=== PATIENT | female | born 1980 | race Caucasian/White ===

== ENCOUNTER → 2016-12-24 | Outpatient (CLI) | payer OTHER ==
--- NOTE | 2016-12-24 13:51 | US ---
EXAMINATION TYPE: US pelvis complete transvag DATE OF EXAM: 12/24/2016 10:47 AM COMPARISON: NONE CLINICAL HISTORY: R10.2 PELVIC PAIN. Pelvic pain bilaterally for 6-7 months, normal cycles, 1 c-secti on, A1, tubal ligation TECHNIQUE: TA and TV, endovaginal scanning performed for better evaluation of uterus and ovary Date of LMP: 12/03/2016 EXAM MEASUREMENTS: Uterus: 8.3 x 4.9 x 3.7 cm Endometrial Stripe: 1.4 cm Right Ovary: 2.7 x 2.7 x 2.9 cm Left Ovary: not seen Grayscale, color Doppler performed of the right ovary. Color flow is noted to the right ovary. 1. Uterus: Anteverted shadowing from scar noted, otherwise wnl 2. Endometrium: upper limits of normal versus slightly thickened 3. Right Ovary: wnl 4. Left Ovary: unable to see transabdominally or transvaginally, overlying bowel gas 5. Bilateral Adnexa: wnl 6. Posterior cul-de-sac: wnl There is no ascites. IMPRESSION: Exam is limited. Correlate for appropriate days of patient's follicular cycle or endometr ial stripe thickness.
== END | disposition home or self-care (01) ==
LOC: RADUSWWP 10:13
PROVIDERS: ATTEND Obstetrics & Gynecology
DX: R10.2 Pelvic and perineal pain (principal)
CPT/HCPCS: 76830; 76856

== ENCOUNTER → 2016-12-31 | Outpatient (CLI) | payer OTHER ==
--- NOTE | 2017-01-01 07:45 | XR ---
Lumbosacral spine HISTORY: Low back pain 5 views of the lumbosacral spine submitted and correlated to prior of 09/15/2013 There is no significant interval change. Slight spinal curvature is noted. No spondylolysis or spondy lolisthesis. Lumbar vertebral bodies show stable height, alignment, and bone mineralization. Some mil d loss of disc height L5-S1. IMPRESSION: Stable exam. Suspect mild degenerative disc change.
== END ==
LOC: RADXRMAIN 15:59
PROVIDERS: ATTEND Family Medicine
DX: M54.5 Low back pain (principal)
CPT/HCPCS: 72110

== ENCOUNTER 2017-04-07 11:33 | Emergency (ER) | payer OTHER ==
[2017-04-07 11:39] VITALS: BP 110/80; PULSE 77; RESP 18; TEMP 98
--- NOTE | 2017-04-07 12:30 | ED ---
General Adult HPI - General Chief complaint: Eye Problems Stated complaint: Eye Pain Time Seen by Provider: 04/07/17 11:46 Source: patient, RN notes reviewed Mode of arrival: ambulatory Limitations: no limitations - History of Present Illness Initial comments: Patient 36-year-old female who presents emergency room today with a chief complaint of left eye irritation. She does admit that she's been having this problem for some time is seen deicer kit assembler and was started on some drops. She states that she was told that there was some irritation underneath the left eyelid. She states that at times she's woken up with some redness and irritation to the left eye. She states this happened once again today where there is increased redness and has not gone away. She denies any other complaints or symptoms. Patient denies any recent fever, chills, shortness of breath, chest pain, back pain, abdominal pain, nausea or vomiting, numbness or tingling, dysuria or hematuria, constipation or diarrhea, headaches or visual changes, or any other complaints. - Related Data Previous Rx's Medication Instructions Recorded Tobramycin 0.3% Ophth Soln [Tobrex 1 - 2 drop LEFT EYE QID 7 Days 04/07/17 0.3% Ophth Soln] Allergies Allergy/AdvReac Type Severity Reaction Status Date / Time Penicillins Allergy Rash/Hives Verified 04/07/17 11:40 Review of Systems ROS Statement: Those systems with pertinent positive or pertinent negative responses have been documented in the HPI. ROS Other: All systems not noted in ROS Statement are negative. Past Medical History Past Medical History: No Reported History History of Any Multi-Drug Resistant Organisms: None Reported Past Surgical History: Appendectomy, Section Past Anesthesia/Blood Transfusion Reactions: No Reported Reaction Past Psychological History: No Psychological Hx Reported Smoking Status: Never smoker Past Alcohol Use History: None Reported Past Drug Use History: None Reported General Exam - General Exam Comments Initial Comments: General: The patient is awake and alert, in no distress, and does not appear acutely ill. Eye: Pupils are equal, round and reactive to light, extra-ocular movements are intact. No nystagmus. She does have some left eye redness irritation to the conjunctiva. Watery discharge. Ears, nose, mouth and throat: There are moist mucous membranes and no oral lesions. Neck: The neck is supple, there is no tenderness or JVD. Cardiovascular: There is a regular rate and rhythm. No murmur, rub or gallop is appreciated. Respiratory: Lungs are clear to auscultation, respirations are non-labored, breath sounds are equal. No wheezes, stridor, rales, or rhonchi. Musculoskeletal: Normal ROM, no tenderness. Strength 5/5. Sensation intact. Pulses equal bilaterally 2+. Neurological: A&O x 3. CN II-XII intact, There are no obvious motor or sensory deficits. Coordination appears grossly intact. Speech is normal. Skin: Skin is warm and dry and no rashes or lesions are noted. Psychiatric: Cooperative, appropriate mood & affect, normal judgment. Limitations: no limitations Course Vital Signs 04/07/17 11:38 Temperature 98.0 F Pulse Rate 77 Respiratory 18 Rate Blood Pressure 110/80 O2 Sat by Pulse 97 Oximetry Procedures - Procedures Initial comment: Patient's left eye was anesthetized locally with proparacaine. This did give her relief. Was stained with forcing checked with Wood's lamp and also slit lamp exam revealing a corneal abrasion at the 7 o'clock position. Lids inverted no foreign bodies appreciated. Medical Decision Making - Medical Decision Making She will be started on antibiotic drops. The emergency room and advised to follow-up with her deicer kit assembler tomorrow. Advised return for any other concerns. Disposition Clinical Impression: Corneal abrasion Disposition: HOME SELF-CARE Condition: Good Instructions: Corneal Abrasion (ED) Additional Instructions: Please use medication as discussed. Please follow-up with deicer kit assembler tomorrow. Please return to emergency room if the symptoms increase or worsen or for any other concerns. Prescriptions: Tobramycin 0.3% Ophth Soln [Tobrex 0.3% Ophth Soln] 1 - 2 drop LEFT EYE QID 7 Days Referrals: Guillermina Alvarez MD [Primary Care Provider] - 1-2 days Time of Disposition: 12:29
== END 2017-04-07 12:44 | disposition home or self-care (01) ==
LOC: EC 11:33
DX: S05.02XA Injury of conjunctiva and corneal abrasion without foreign body, left eye, initial encounter (principal); Z88.0 Allergy status to penicillin; X58.XXXA Exposure to other specified factors, initial encounter
CPT/HCPCS: 99283

== ENCOUNTER 2018-05-17 15:38 | Emergency (ER) | payer OTHER ==
[2018-05-17 15:57] VITALS: BP 114/64; PULSE 95; RESP 18; TEMP 98.7
[2018-05-17] MEDS: ACETAMINOPHEN TAB 325 MG TAB PO STA ×2 (16:29→16:30)
[2018-05-17] MEDS: IBUPROFEN 600 MG TAB PO STA ×2 (16:29→16:45)
--- NOTE | 2018-05-17 16:29 | ED ---
ENT HPI - General Chief complaint: ENT Stated complaint: Sore throat Time Seen by Provider: 05/17/18 16:01 Source: patient Mode of arrival: ambulatory Limitations: no limitations - History of Present Illness Initial comments: 38-year-old female patient presents to the emergency department today for evaluation of sore throat. Patient states that she has had sore throat for the last couple of days. States that she also has mild cough with no sputum production. She denies any nasal congestion. She states that she is also having generalized body aches. She denies any fevers or chills. Denies taking anything for discomfort. States that her children are sick with similar symptoms. Patient denies any recent rash, shortness breath, chest pain, abdominal pain, nausea, vomiting, diarrhea, constipation, back pain, numbness, tingling, dizziness, weakness, hematuria, dysuria, urinary urgency, urinary frequency, headache, visual changes, or any other complaints. - Related Data Previous Rx's Medication Instructions Recorded Tobramycin 0.3% Ophth Soln [Tobrex 1 - 2 drop LEFT EYE QID 7 Days ml 04/07/17 0.3% Ophth Soln] Ibuprofen [Motrin] 600 mg PO Q8HR PRN #30 tab 05/17/18 Allergies Allergy/AdvReac Type Severity Reaction Status Date / Time Penicillins Allergy Rash/Hives Verified 05/17/18 15:57 Review of Systems ROS Statement: Those systems with pertinent positive or pertinent negative responses have been documented in the HPI. ROS Other: All systems not noted in ROS Statement are negative. Past Medical History Past Medical History: No Reported History History of Any Multi-Drug Resistant Organisms: None Reported Past Surgical History: Appendectomy, Section Past Anesthesia/Blood Transfusion Reactions: No Reported Reaction Past Psychological History: No Psychological Hx Reported Smoking Status: Never smoker Past Alcohol Use History: None Reported Past Drug Use History: None Reported General Exam Limitations: no limitations General appearance: alert, in no apparent distress, other (This is a well- developed, well-nourished adult female patient in no acute distress. Vital signs upon presentation are temperature 98.7F, pulse 95, respirations 18, blood pressure 114/64, pulse ox 98% on room air.) Eye exam: Present: normal appearance, PERRL, EOMI. Absent: scleral icterus, conjunctival injection, periorbital swelling ENT exam: Present: mucous membranes moist, TM's normal bilaterally. Absent: normal oropharynx (Pharyngeal erythema, tonsillar hypertrophy. No evidence of tonsillar exudate.) Neck exam: Present: normal inspection. Absent: tenderness, meningismus, lymphadenopathy Respiratory exam: Present: normal lung sounds bilaterally. Absent: respiratory distress, wheezes, rales, rhonchi, stridor Cardiovascular Exam: Present: regular rate, normal rhythm, normal heart sounds. Absent: systolic murmur, diastolic murmur, rubs, gallop, clicks GI/Abdominal exam: Present: soft, normal bowel sounds. Absent: distended, tenderness, guarding, rebound, rigid Neurological exam: Present: alert, oriented X3, CN II-XII intact Psychiatric exam: Present: normal affect, normal mood Skin exam: Present: warm, dry, intact, normal color. Absent: rash Course Vital Signs 05/17/18 15:55 Temperature 98.7 F Pulse Rate 95 Respiratory 18 Rate Blood Pressure 114/64 O2 Sat by Pulse 98 Oximetry Medical Decision Making - Medical Decision Making 38-year-old female patient presents the emergency department today for evaluation of sore throat. Physical examination did reveal pharyngeal erythema with tonsillar hypertrophy but no evidence of exudate. No lymphadenopathy. Patient is afebrile, vital signs stable. Checked screen negative. Vision symptoms are consistent with viral pharyngitis. She is instructed regarding saltwater gargles and anti-inflammatory meds. She is instructed to increase fluids and to rest. She is instructed to follow-up with her primary care physician for recheck in 1-2 days. Return parameters discussed in detail. She verbalizes understanding and agrees with this plan. - Lab Data Lab Results 05/17/18 Range/Units 16:31 Group A Strep Rapid Negative (Negative) Disposition Clinical Impression: Viral pharyngitis Disposition: HOME SELF-CARE Condition: Good Instructions: Pharyngitis (ED) Additional Instructions: Saltwater gargles several times daily. Continue taking Tylenol and Motrin for discomfort. The antiinflammatory will help the inflammation in your throat. Follow-up with your primary care physician for recheck in 1-2 days. Await throat culture results. Return here immediately for any new, worsening, or concerning symptoms. Prescriptions: Ibuprofen [Motrin] 600 mg PO Q8HR PRN #30 tab PRN Reason: Pain Is patient prescribed a controlled substance at d/c from ED?: No Referrals: Guillermina Alvarez MD [Primary Care Provider] - 1-2 days Time of Disposition: 16:56
[2018-05-17] MEDS ORDERED: IBUPROFEN ORAL SUSP 100 MG/5 ML CUP PO ONE (16:33)
== END 2018-05-17 17:31 | disposition home or self-care (01) ==
LOC: EC 15:38
DX: J02.9 Acute pharyngitis, unspecified (principal); Z88.0 Allergy status to penicillin
CPT/HCPCS: 87081; 87430; 99283

== ENCOUNTER 2018-07-20 08:58 | Emergency (ER) | payer OTHER ==
[2018-07-20 09:07] VITALS: RESP 15
[2018-07-20] MEDS ORDERED: SODIUM CHLORIDE 0.9% 1,000 ML IV STA (09:18)
[2018-07-20] MEDS ORDERED: HYDROmorphone 1 MG/ML 1 ML SYRINGE IVP STA (09:18)
[2018-07-20] MEDS ORDERED: ONDANSETRON 4 MG/2 ML VIAL IVP STA (09:18)
--- NOTE | 2018-07-20 09:19 | ED ---
General Adult HPI - General Chief complaint: Abdominal Pain Stated complaint: Stomach pain Time Seen by Provider: 07/20/18 09:12 Source: patient, RN notes reviewed Mode of arrival: ambulatory Limitations: no limitations - History of Present Illness Initial comments: Patient is a 38-year-old female presented to the emergency room today with a chief complaint of epigastric pain that started this morning proxy 5 AM. She does admit that she was getting ready for work she was beginning to eat and had one bite of oatmeal. She states pain increased. Currently rates it a 9/10 as a pressure-like pain. Patient states never had symptoms similar to this in the past. Denies any other complaints or symptoms. Patient denies any recent fever , chills, shortness of breath, chest pain, back pain, nausea or vomiting, numbness or tingling, headaches or visual changes, or any other complaints. - Related Data Home Medications Medication Instructions Recorded Confirmed Multivitamin [Multivitamins Adult 1 tab PO DAILY 07/20/18 07/20/18 Gummies] Previous Rx's Medication Instructions Recorded Omeprazole 20 mg PO DAILY #20 capsule. 07/20/18 Ondansetron Odt [Zofran ODT] 4 mg PO Q8HR PRN #20 tab 07/20/18 Allergies Allergy/AdvReac Type Severity Reaction Status Date / Time Penicillins Allergy Rash/Hives Verified 07/20/18 09:49 Review of Systems ROS Statement: Those systems with pertinent positive or pertinent negative responses have been documented in the HPI. ROS Other: All systems not noted in ROS Statement are negative. Past Medical History Past Medical History: No Reported History History of Any Multi-Drug Resistant Organisms: None Reported Past Surgical History: Appendectomy, Section Past Anesthesia/Blood Transfusion Reactions: No Reported Reaction Past Psychological History: No Psychological Hx Reported Smoking Status: Never smoker Past Alcohol Use History: None Reported Past Drug Use History: None Reported General Exam - General Exam Comments Initial Comments: General: The patient is awake and alert, in mild discomfort. Eye: There is normal conjunctiva bilaterally. No signs of icterus. Ears, nose, mouth and throat: There are moist mucous membranes and no oral lesions. Neck: The neck is supple, there is no tenderness or JVD. Cardiovascular: There is a regular rate and rhythm. No murmur, rub or gallop is appreciated. Respiratory: Lungs are clear to auscultation, respirations are non-labored, breath sounds are equal. No wheezes, stridor, rales, or rhonchi. Gastrointestinal: Soft on palpation. Patient does have tenderness epigastric, right upper quadrant. No rebound, guarding or CVA tenderness. Musculoskeletal: Normal ROM, no tenderness. Neurological: A&O x 3. CN II-XII intact, There are no obvious motor or sensory deficits. Coordination appears grossly intact. Speech is normal. Skin: Skin is warm and dry and no rashes or lesions are noted. Psychiatric: Cooperative, appropriate mood & affect, normal judgment. Limitations: no limitations Course Vital Signs 07/20/18 07/20/18 09:03 11:01 Temperature 97.6 F 97.8 F Pulse Rate 83 74 Respiratory 15 15 Rate Blood Pressure 131/79 115/69 O2 Sat by Pulse 100 100 Oximetry Medical Decision Making - Medical Decision Making Patient's ultrasound of the right upper quadrant does show heterogeneous liver. Patient does have a panel that is pending. Patient's admits that she is a drinker. States she was drinking more heavily over the weekend. Patient's liver enzymes are mildly elevated. She did have a white count. Patient does have some mild tenderness right upper quadrant. There is no evidence for cholecystitis. No evidence for cholelithiasis. Common bile ducts within normal limits. Patient's urinalysis reviewed and she denies any symptoms of UTI. Patient's vital stable. Patient's chest x-ray was obtained and does show a mass in the left upper lung which she was aware of. Does show that it has gotten larger. She is advised follow-up with family physician. Patient's EKG is unremarkable. Cardiac enzymes are negative. Patient will be discharged home to follow-up with GI and family physician. Advised to return here to the emergency room symptoms increase or worsen. - Lab Data Result diagrams: 07/20/18 09:15 07/20/18 09:15 Lab Results 07/20/18 07/20/18 07/20/18 Range/Units 09:15 09:15 09:15 WBC 14.4 H (3.8-10.6) k/uL RBC 4.85 (3.80-5.40) m/uL Hgb 12.5 (11.4-16.0) gm/dL Hct 38.2 (34.0-46.0) % MCV 78.8 L (80.0-100.0) fL MCH 25.7 (25.0-35.0) pg MCHC 32.6 (31.0-37.0) g/dL RDW 15.0 (11.5-15.5) % Plt Count 313 (150-450) k/uL Neutrophils % 78 % Lymphocytes % 15 % Monocytes % 4 % Eosinophils % 1 % Basophils % 0 % Neutrophils # 11.1 H (1.3-7.7) k/uL Lymphocytes # 2.2 (1.0-4.8) k/uL Monocytes # 0.6 (0-1.0) k/uL Eosinophils # 0.2 (0-0.7) k/uL Basophils # 0.0 (0-0.2) k/uL Sodium 140 (137-145) mmol/L Potassium 4.3 (3.5-5.1) mmol/L Chloride 107 (98-107) mmol/L Carbon Dioxide 25 (22-30) mmol/L Anion Gap 8 mmol/L BUN 19 H (7-17) mg/dL Creatinine 0.84 (0.52-1.04) mg/dL Est GFR (CKD-EPI)AfAm >90 (>60 ml/min/1.73 sqM) Est GFR (CKD-EPI)NonAf 87 (>60 ml/min/1.73 sqM) Glucose 95 (74-99) mg/dL Calcium 9.3 (8.4-10.2) mg/dL Total Bilirubin 1.3 (0.2-1.3) mg/dL AST 165 H (14-36) U/L ALT 69 H (9-52) U/L Alkaline Phosphatase 111 (38-126) U/L Total Creatine Kinase 150 H (30-135) U/L CK-MB (CK-2) 0.9 (0.0-2.4) ng/mL CK-MB (CK-2) Rel Index 0.6 Troponin I <0.012 (0.000-0.034) ng/mL Total Protein 7.3 (6.3-8.2) g/dL Albumin 4.0 (3.5-5.0) g/dL Amylase 82 (30-110) U/L Lipase 84 (23-300) U/L Urine Color Urine Appearance (Clear) Urine pH (5.0-8.0) Ur Specific [place] (1.001-1.035) Urine Protein (Negative) Urine Glucose (UA) (Negative) Urine Ketones (Negative) Urine Blood (Negative) Urine Nitrite (Negative) Urine Bilirubin (Negative) Urine Urobilinogen (<2.0) mg/dL Ur Leukocyte Esterase (Negative) Urine RBC (0-5) /hpf Urine WBC (0-5) /hpf Ur Squamous Epith Cells (0-4) /hpf Urine Bacteria (None) /hpf Urine Mucus (None) /hpf Urine HCG, Qual (Not Detectd) 07/20/18 07/20/18 Range/Units 09:15 09:15 WBC (3.8-10.6) k/uL RBC (3.80-5.40) m/uL Hgb (11.4-16.0) gm/dL Hct (34.0-46.0) % MCV (80.0-100.0) fL MCH (25.0-35.0) pg MCHC (31.0-37.0) g/dL RDW (11.5-15.5) % Plt Count (150-450) k/uL Neutrophils % % Lymphocytes % % Monocytes % % Eosinophils % % Basophils % % Neutrophils # (1.3-7.7) k/uL Lymphocytes # (1.0-4.8) k/uL Monocytes # (0-1.0) k/uL Eosinophils # (0-0.7) k/uL Basophils # (0-0.2) k/uL Sodium (137-145) mmol/L Potassium (3.5-5.1) mmol/L Chloride (98-107) mmol/L Carbon Dioxide (22-30) mmol/L Anion Gap mmol/L BUN (7-17) mg/dL Creatinine (0.52-1.04) mg/dL Est GFR (CKD-EPI)AfAm (>60 ml/min/1.73 sqM) Est GFR (CKD-EPI)NonAf (>60 ml/min/1.73 sqM) Glucose (74-99) mg/dL Calcium (8.4-10.2) mg/dL Total Bilirubin (0.2-1.3) mg/dL AST (14-36) U/L ALT (9-52) U/L Alkaline Phosphatase (38-126) U/L Total Creatine Kinase (30-135) U/L CK-MB (CK-2) (0.0-2.4) ng/mL CK-MB (CK-2) Rel Index Troponin I (0.000-0.034) ng/mL Total Protein (6.3-8.2) g/dL Albumin (3.5-5.0) g/dL Amylase (30-110) U/L Lipase (23-300) U/L Urine Color Yellow Urine Appearance Cloudy H (Clear) Urine pH 6.5 (5.0-8.0) Ur Specific [place] 1.020 (1.001-1.035) Urine Protein Trace H (Negative) Urine Glucose (UA) Negative (Negative) Urine Ketones Negative (Negative) Urine Blood Moderate H (Negative) Urine Nitrite Negative (Negative) Urine Bilirubin Negative (Negative) Urine Urobilinogen 2.0 (<2.0) mg/dL Ur Leukocyte Esterase Large H (Negative) Urine RBC 24 H (0-5) /hpf Urine WBC 9 H (0-5) /hpf Ur Squamous Epith Cells 7 H (0-4) /hpf Urine Bacteria Rare H (None) /hpf Urine Mucus Rare H (None) /hpf Urine HCG, Qual Not Detected (Not Detectd) Disposition Clinical Impression: Elevated liver enzymes, Lung mass, Abdominal pain Disposition: HOME SELF-CARE Condition: Good Instructions: Abdominal Pain (ED) Additional Instructions: Please follow-up the family physician to have lung mass rechecked. Please follow-up with GI about right sided abdominal pain. Please use medication as prescribed return here to the emergency room symptoms increase or worsen or for any other concerns. Prescriptions: Omeprazole 20 mg PO DAILY #20 capsule. Ondansetron Odt [Zofran ODT] 4 mg PO Q8HR PRN #20 tab PRN Reason: Nausea Is patient prescribed a controlled substance at d/c from ED?: No Referrals: Guillermina Alvarez MD [Primary Care Provider] - 1-2 days Brenda Peterson MD [STAFF PHYSICIAN] - 1-2 days Time of Disposition: 11:55
[2018-07-20 09:32] LABS: Basophils % (A) 0 %; Eosinophils # (A) 0.2 k/uL (0-0.7); Eosinophils % (A) 1 %; HCT 38.2 % (34.0-46.0); HGB 12.5 gm/dL (11.4-16.0); Lymphocytes # (A) 2.2 k/uL (1.0-4.8); Lymphocytes % (A) 15 %; MCH 25.7 pg (25.0-35.0); MCHC 32.6 g/dL (31.0-37.0); MCV 78.8 fL (80.0-100.0); Mean Platelet Volume 8.1; Monocytes # (A) 0.6 k/uL (0-1.0); Monocytes % (A) 4 %; Neutrophils # (A) 11.1 k/uL (1.3-7.7); Neutrophils % (A) 78 %; Platelet Count 313 k/uL (150-450); RBC 4.85 m/uL (3.80-5.40); WBC 14.4 k/uL (3.8-10.6)
[2018-07-20 09:40] LABS: Appearance,Urine Cloudy (Clear); Bacteria,Urine Rare /hpf; Bilirubin,Urine Negative (Negative); Blood,Urine Moderate (Negative); Color,Urine Yellow; Glucose,Urine (UA) Negative (Negative); Ketones,Urine Negative (Negative); Leukocyte Esterase,Urine Large (Negative); Mucus,Urine Rare /hpf; Nitrite,Urine Negative (Negative); PH, Urine 6.5 (5.0-8.0); Protein,Urine Trace (Negative); RBC,Urine 24 /hpf (0-5); Squamous Epithelial Cell,Urine 7 /hpf (0-4)
[2018-07-20 09:46] LABS: ALT 69 U/L (9-52); AST 165 U/L (14-36); Alkaline Phosphatase 111 U/L (38-126); Amylase 82 U/L (30-110); Anion Gap 8 mmol/L; Blood Urea Nitrogen 19 mg/dL (7-17); Calcium 9.3 mg/dL (8.4-10.2); Carbon Dioxide 25 mmol/L (22-30); Chloride 107 mmol/L (98-107); Glucose 95 mg/dL (74-99); Lipase 84 U/L (23-300); Potassium 4.3 mmol/L (3.5-5.1); Sodium 140 mmol/L (137-145); Total Bilirubin 1.3 mg/dL (0.2-1.3); Total Protein 7.3 g/dL (6.3-8.2)
[2018-07-20 10:11] LABS: Creatine Kinase 150 U/L (30-135)
[2018-07-20] MEDS ORDERED: ACETAMINOPHEN IV (For NPO) 1,000 MG in EMPTY BAG 1 BAG IVPB STA (10:14)
[2018-07-20 10:23] LABS: Creatine Kinase MB 0.9 ng/mL (0.0-2.4); Troponin I <0.012 ng/mL (0.000-0.034)
--- NOTE | 2018-07-20 10:25 | US ---
EXAMINATION TYPE: US abdomen limited DATE OF EXAM: 07/20/2018 COMPARISON: NONE CLINICAL HISTORY: Pain. epi pain today, nausea EXAM MEASUREMENTS: Liver Length: 17.7 cm Gallbladder Wall: 0.2 cm CBD: 0.6 cm Right Kidney: 10.1 x 4.6 x 4.7 cm bowel gas limits exam Pancreas: wnl Liver: heterogeneous Gallbladder: wnl Evidence for sonographic Gilbert's sign: no CBD: wnl Right Kidney: wnl IMPRESSION: 1. Liver is heterogeneous in appearance correlate for hepatic steatosis, hepatitis or diffuse hepatoc ellular disease.
--- NOTE | 2018-07-20 10:35 | XR ---
EXAMINATION TYPE: XR chest 2V DATE OF EXAM: 07/20/2018 COMPARISON: 09/15/2013 TECHNIQUE: PA and lateral views submitted. HISTORY: Right upper quadrant pain FINDINGS: The lungs are clear and there is no pneumothorax, pleural effusion, or focal pneumonia. IMPRESSION: 1. There is a 1.5 cm mass in the left upper lobe. This is increased in size from prior exam. CT of th e chest is recommended to assess for malignancy.
[2018-07-20] MEDS ORDERED: KETOROLAC 30 MG/ML 1 ML VIAL IVP STA (10:52)
[2018-07-20 11:03] VITALS: BP 115/69; PULSE 74; TEMP 97.8
[2018-07-20 11:58] LABS: Hepatitis A AB IgM Index 0.06; Hepatitis A Antibody IgM NEGATIVE
[2018-07-20 17:22] LABS: Hepatitis B Core IgM Non-Reactive (Non-Reactive)
== END 2018-07-20 12:01 | disposition home or self-care (01) ==
LOC: EC 08:58
DX: R10.13 Epigastric pain (principal); R91.8 Other nonspecific abnormal finding of lung field; R74.8 Abnormal levels of other serum enzymes; R93.2 Abnormal findings on diagnostic imaging of liver and biliary tract; Z88.0 Allergy status to penicillin; Z90.49 Acquired absence of other specified parts of digestive tract; Z53.8 Procedure and treatment not carried out for other reasons
CPT/HCPCS: 36415; 93005; 80053; 80074; 82150; 82550; 82553; 83690; 84484; 85025; 81001; 81025; 87086; 71046; 76705; 99285; 96374; 96375 ×2; 96361; J2405; J1885; J1170

== ENCOUNTER 2018-07-23 15:25 | Inpatient (IN) | payer OTHER ==
[2018-07-23] MEDS ORDERED: SODIUM CHLORIDE 0.9% 500 ML 500 ML IV STA (16:19)
[2018-07-23 16:58] LABS: Basophils # (A) 0.1 k/uL (0-0.2); Basophils % (A) 0 %; Eosinophils # (A) 0.5 k/uL (0-0.7); Eosinophils % (A) 4 %; HCT 41.9 % (34.0-46.0); HGB 13.2 gm/dL (11.4-16.0); Lymphocytes # (A) 2.3 k/uL (1.0-4.8); Lymphocytes % (A) 20 %; MCH 25.2 pg (25.0-35.0); MCHC 31.5 g/dL (31.0-37.0); MCV 79.8 fL (80.0-100.0); Mean Platelet Volume 8.1; Monocytes # (A) 0.5 k/uL (0-1.0); Monocytes % (A) 5 %; Neutrophils # (A) 7.9 k/uL (1.3-7.7); Neutrophils % (A) 70 %; Platelet Count 336 k/uL (150-450); RBC 5.25 m/uL (3.80-5.40); RDW 15.4 % (11.5-15.5); WBC 11.3 k/uL (3.8-10.6)
[2018-07-23 17:08] LABS: ALT 344 U/L (9-52); AST 150 U/L (14-36); Albumin 4.2 g/dL (3.5-5.0); Alkaline Phosphatase 300 U/L (38-126); Amylase 66 U/L (30-110); Anion Gap 11 mmol/L; Blood Urea Nitrogen 13 mg/dL (7-17); Calcium 9.5 mg/dL (8.4-10.2); Carbon Dioxide 20 mmol/L (22-30); Chloride 110 mmol/L (98-107); Glucose 100 mg/dL (74-99); Lipase 63 U/L (23-300); Potassium 4.1 mmol/L (3.5-5.1); Sodium 141 mmol/L (137-145); Total Bilirubin 3.2 mg/dL (0.2-1.3); Total Protein 7.9 g/dL (6.3-8.2)
--- NOTE | 2018-07-23 17:52 | CT ---
EXAMINATION TYPE: CT abdomen pelvis w con DATE OF EXAM: 07/23/2018 COMPARISON: None HISTORY: Abdominal pain and nausea. CT DLP: 1448.6 mGycm Automated exposure control for dose reduction was used. TECHNIQUE: Helical acquisition of images was performed from the lung bases through the pelvis. CONTRAST: Performed without Oral Contrast and with IV Contrast, patient injected with 100 mL of Isovue 300. FINDINGS: Lung bases are clear of infiltrate. There is no pleural effusion. Heart size is normal. Liver shows no focal defect. Spleen appears normal. There is no pancreatic mass. Gallbladder appears normal. There is no adrenal mass. Kidneys show satisfactory contrast opacification. There is no hydronephrosi s. Ureters are not dilated. There is no retroperitoneal adenopathy. Bladder distends smoothly. There is no free fluid in the pelvis. There are clips from tubal ligation. Uterus is anteverted. There is n o inguinal hernia. I see no intestinal wall thickening. There are no dilated loops. Lumbar spine is i ntact. Bony pelvis is intact. There is no evidence of mesenteric edema or adenopathy. There is no sign of free air. There is small umbilical hernia that contains fat. Appendix is not seen. There is no sign of appendicitis. IMPRESSION: NEGATIVE CT SCAN ABDOMEN AND PELVIS.
--- NOTE | 2018-07-23 17:59 | ED ---
Nausea/Vomiting/Diarrhea HPI - General Chief complaint: Nausea/Vomiting/Diarrhea Stated complaint: NVD Time Seen by Provider: 07/23/18 16:18 Source: patient Mode of arrival: ambulatory Limitations: physical limitation - History of Present Illness Initial comments: This is a 38yo female who denies PMH presnting today for cc of RUQ/epigastric pain, N,V and diarrhea. Pt states that she as seen Friday for abdominal pain, she states she was not experiencing vomiting or diarrhea at that time. Pt states he gallbladder US was negative. She did not elevated liver enzymes however Hepatitis Panel (-). Pt denies noticing a pattern with what bring on and alleviates the pain, she describes the pain as colciky, coming and going with various intensities. Pt denies radiation to the back. Pt denies chest pain , dyspnea, dyspnea on exertion, LE swelling, cough, fever, nightsweats, skin color changes. Pt does state that she has had a headache here and there as well as congestions upon ROS, denies neck stiffness, photophobia, urgency, frequency , dysuria, vaginal discharge, vaginal or pelvic pain, recent travel, sick contacts. Upon arrival pt appears uncomfortable. VS within normal limits. - Related Data Home Medications Medication Instructions Recorded Confirmed Ibuprofen [Motrin Ib] 400 mg PO Q6H PRN 07/23/18 07/23/18 Allergies Allergy/AdvReac Type Severity Reaction Status Date / Time Penicillins Allergy Rash/Hives Verified 07/23/18 16:24 Review of Systems ROS Statement: Those systems with pertinent positive or pertinent negative responses have been documented in the HPI. ROS Other: All systems not noted in ROS Statement are negative. Past Medical History Past Medical History: No Reported History History of Any Multi-Drug Resistant Organisms: None Reported Past Surgical History: Appendectomy, Section Past Anesthesia/Blood Transfusion Reactions: No Reported Reaction Past Psychological History: No Psychological Hx Reported Smoking Status: Never smoker Past Alcohol Use History: None Reported Past Drug Use History: None Reported - Past Family History Mother Family Medical History: Diabetes Mellitus Father Family Medical History: No Reported History General Exam - General Exam Comments Initial Comments: General: The patient is awake and alert, in no distress, and does not appear acutely ill. Eye: +3 mm pupils are equal, round and reactive to light, extra-ocular movements are intact. No nystagmus. There is normal conjunctiva bilaterally. No signs of icterus. Ears, nose, mouth and throat: There are moist mucous membranes and no oral lesions. Neck: The neck is supple, there is no tenderness or JVD. Cardiovascular: There is a regular rate and rhythm. No murmur, rub or gallop is appreciated. Respiratory: Lungs are clear to auscultation, respirations are non-labored, breath sounds are equal. No wheezes, stridor, rales, or rhonchi. Gastrointestinal: No noted diaphoresis, jaundice, pallor, protecting postures or squirming. Symmetrical pigmentation of abdomen without signs of inflammation. Umbilicus mildline, inverted without swelling. No dilated veins. Abdomen contour obese, no noted abdominal distention. No visible masses. No peristalsis, aortic pulsations, or ventral hernia. Bowel sounds audible in all 4 quadrants, unremarkable. Patient exquisitely tender to the right upper quadrant and epigastric region, positive Gilbert's sign. Liver edge, not palpable. Spleen edge , right and left kidney not palpable. Superior bladder margin non-tender. Special Testing: Negative Rovsing, McBurney, Elzbieta, cutaneous hyperesthesia. Iliopsoas and obturator tests negative bilaterally. Negative Heel Jar test/eulalia sign. No CVA tenderness. Digital rectal exam deferred. Negative diallo turners or cullens sign Musculoskeletal: Normal ROM, no tenderness. Strength 5/5. Sensation intact. Pulses equal bilaterally 2+. Neurological: A&O x 3. CN II-XII intact, There are no obvious motor or sensory deficits. Coordination appears grossly intact. Speech is normal. Skin: Skin is warm and dry and no rashes or lesions are noted. Psychiatric: Cooperative, appropriate mood & affect, normal judgment. Limitations: physical limitation Course Vital Signs 07/23/18 07/23/18 07/23/18 15:44 19:30 20:51 Temperature 98.4 F 97.7 F Pulse Rate 72 70 71 Respiratory 18 16 16 Rate Blood Pressure 113/65 125/77 112/67 O2 Sat by Pulse 98 100 98 Oximetry Medical Decision Making - Medical Decision Making PE remarkable for significant RUQ pain, with (+) [place]. Pt refused pain medication. Laboratory findings revealed that her elevated bilirubin since last visit as well as a mild increased in Alk phos remainder of values WNL or decreased since initial visit days prior. Given elevation of the Bilirubin and Alk Phos an addition RUQ ultrasound was obtained revealing no acute process. CT of the abdomen and pelvic revealed no findings correlating with patient symptoms. At this time it is uncelar the etiology. I feel pt should be admitted for further evaluation as well as pain management. I discussed the case at length with Dr. Collins who agreed with impression and plan after reviewing the case. Pt admitted to primary provider Dr. Mathis who spoke with Dr. Collins- accepting admission and will resume further care. Upon admission, GI and general surgery consulted. Pt transferred to the floor in stable condition. She is agreeable with admission and denies questions at this time. - Lab Data Result diagrams: 07/24/18 07:44 07/24/18 07:44 Lab Results 07/23/18 07/23/18 07/23/18 Range/Units 16:43 16:43 16:43 WBC 11.3 H (3.8-10.6) k/uL RBC 5.25 (3.80-5.40) m/uL Hgb 13.2 (11.4-16.0) gm/dL Hct 41.9 (34.0-46.0) % MCV 79.8 L (80.0-100.0) fL MCH 25.2 (25.0-35.0) pg MCHC 31.5 (31.0-37.0) g/dL RDW 15.4 (11.5-15.5) % Plt Count 336 (150-450) k/uL Neutrophils % 70 % Lymphocytes % 20 % Monocytes % 5 % Eosinophils % 4 % Basophils % 0 % Neutrophils # 7.9 H (1.3-7.7) k/uL Lymphocytes # 2.3 (1.0-4.8) k/uL Monocytes # 0.5 (0-1.0) k/uL Eosinophils # 0.5 (0-0.7) k/uL Basophils # 0.1 (0-0.2) k/uL Sodium 141 (137-145) mmol/L Potassium 4.1 (3.5-5.1) mmol/L Chloride 110 H (98-107) mmol/L Carbon Dioxide 20 L (22-30) mmol/L Anion Gap 11 mmol/L BUN 13 (7-17) mg/dL Creatinine 0.85 (0.52-1.04) mg/dL Est GFR (CKD-EPI)AfAm >90 (>60 ml/min/1.73 sqM) Est GFR (CKD-EPI)NonAf 86 (>60 ml/min/1.73 sqM) Glucose 100 H (74-99) mg/dL Calcium 9.5 (8.4-10.2) mg/dL Total Bilirubin 3.2 H (0.2-1.3) mg/dL AST 150 H (14-36) U/L ALT 344 H (9-52) U/L Alkaline Phosphatase 300 H (38-126) U/L Troponin I <0.012 (0.000-0.034) ng/mL Total Protein 7.9 (6.3-8.2) g/dL Albumin 4.2 (3.5-5.0) g/dL Amylase 66 (30-110) U/L Lipase 63 (23-300) U/L Urine Color Urine Appearance (Clear) Urine pH (5.0-8.0) Ur Specific [place] (1.001-1.035) Urine Protein (Negative) Urine Glucose (UA) (Negative) Urine Ketones (Negative) Urine Blood (Negative) Urine Nitrite (Negative) Urine Bilirubin (Negative) Urine Urobilinogen (<2.0) mg/dL Ur Leukocyte Esterase (Negative) Urine RBC (0-5) /hpf Urine WBC (0-5) /hpf Ur Squamous Epith Cells (0-4) /hpf Urine Bacteria (None) /hpf Urine Mucus (None) /hpf 07/23/18 Range/Units 17:48 WBC (3.8-10.6) k/uL RBC (3.80-5.40) m/uL Hgb (11.4-16.0) gm/dL Hct (34.0-46.0) % MCV (80.0-100.0) fL MCH (25.0-35.0) pg MCHC (31.0-37.0) g/dL RDW (11.5-15.5) % Plt Count (150-450) k/uL Neutrophils % % Lymphocytes % % Monocytes % % Eosinophils % % Basophils % % Neutrophils # (1.3-7.7) k/uL Lymphocytes # (1.0-4.8) k/uL Monocytes # (0-1.0) k/uL Eosinophils # (0-0.7) k/uL Basophils # (0-0.2) k/uL Sodium (137-145) mmol/L Potassium (3.5-5.1) mmol/L Chloride (98-107) mmol/L Carbon Dioxide (22-30) mmol/L Anion Gap mmol/L BUN (7-17) mg/dL Creatinine (0.52-1.04) mg/dL Est GFR (CKD-EPI)AfAm (>60 ml/min/1.73 sqM) Est GFR (CKD-EPI)NonAf (>60 ml/min/1.73 sqM) Glucose (74-99) mg/dL Calcium (8.4-10.2) mg/dL Total Bilirubin (0.2-1.3) mg/dL AST (14-36) U/L ALT (9-52) U/L Alkaline Phosphatase (38-126) U/L Troponin I (0.000-0.034) ng/mL Total Protein (6.3-8.2) g/dL Albumin (3.5-5.0) g/dL Amylase (30-110) U/L Lipase (23-300) U/L Urine Color Yellow Urine Appearance Cloudy H (Clear) Urine pH 5.5 (5.0-8.0) Ur Specific [place] 1.032 (1.001-1.035) Urine Protein Trace H (Negative) Urine Glucose (UA) Negative (Negative) Urine Ketones 1+ H (Negative) Urine Blood Moderate H (Negative) Urine Nitrite Negative (Negative) Urine Bilirubin 1+ H (Negative) Urine Urobilinogen <2.0 (<2.0) mg/dL Ur Leukocyte Esterase Large H (Negative) Urine RBC 42 H (0-5) /hpf Urine WBC 48 H (0-5) /hpf Ur Squamous Epith Cells 18 H (0-4) /hpf Urine Bacteria Occasional H (None) /hpf Urine Mucus Rare H (None) /hpf Disposition Clinical Impression: Right upper quadrant pain, Hyperbilirubinemia, Elevated liver enzymes, Nausea and vomiting Disposition: ADMITTED IP TO THIS [facility] Condition: Stable Is patient prescribed a controlled substance at d/c from ED?: No Time of Disposition: 19:19 Decision to Admit Reason: Admit from EC Decision Date: 07/23/18 Decision Time: 19:19
[2018-07-23 18:08] LABS: Appearance,Urine Cloudy (Clear); Bacteria,Urine Occasional /hpf; Bilirubin,Urine 1+ (Negative); Blood,Urine Moderate (Negative); Color,Urine Yellow; Glucose,Urine (UA) Negative (Negative); Ketones,Urine 1+ (Negative); Leukocyte Esterase,Urine Large (Negative); Mucus,Urine Rare /hpf; Nitrite,Urine Negative (Negative); PH, Urine 5.5 (5.0-8.0); Protein,Urine Trace (Negative); RBC,Urine 42 /hpf (0-5); Specific Gravity,Urine 1.032 (1.001-1.035); Squamous Epithelial Cell,Urine 18 /hpf (0-4); Urobilinogen,Urine <2.0 mg/dL (<2.0); WBC,Urine 48 /hpf (0-5)
--- NOTE | 2018-07-23 19:09 | US ---
EXAMINATION TYPE: US abdomen limited DATE OF EXAM: 07/23/2018 COMPARISON: 07/20/2018 CLINICAL HISTORY: Pain. Pain and vomiting EXAM MEASUREMENTS: Liver Length: 16.8 cm Gallbladder Wall: 0.2 cm CBD: 0.5 cm Right Kidney: 9.3 x 4.4 x 4.6 cm Pancreas: Obscured by bowel gas Liver: wnl Gallbladder: wnl Evidence for sonographic Gilbert's sign: No CBD: wnl Right Kidney: wnl IMPRESSION: Normal right upper quadrant abdominal sonogram. No gallstones or dilated ducts. No advers e change compared to recent exam.
[2018-07-23] MEDS ORDERED: MORPHINE SULFATE 4 MG/ML SYRINGE IV PRN (19:11)
[2018-07-23] MEDS ORDERED: ACETAMINOPHEN TAB 325 MG TAB PO PRN (19:11)
[2018-07-23] MEDS ORDERED: ALPRAZolam 0.25 MG TAB PO PRN (19:11)
[2018-07-23] MEDS ORDERED: ONDANSETRON 4 MG/2 ML VIAL IVP PRN (19:11)
[2018-07-23] MEDS ORDERED: NALOXONE 0.4 MG/ML 1 ML VIAL IV PRN (19:11)
[2018-07-23] MEDS: SODIUM CHLORIDE 0.9% 1,000 ML IV SCH (19:39)
[2018-07-23] MEDS: IBUPROFEN 400 MG TAB PO PRN (23:06)
[2018-07-23] MEDS: PANTOPRAZOLE 40 MG/10 ML VIAL IVP SCH (23:51)
[2018-07-24] MEDS: PANTOPRAZOLE 40 MG/10 ML VIAL IVP SCH (07:31)
[2018-07-24 08:19] LABS: Basophils % (A) 0 %; Eosinophils # (A) 0.4 k/uL (0-0.7); Eosinophils % (A) 4 %; HCT 38.1 % (34.0-46.0); HGB 11.7 gm/dL (11.4-16.0); Hypochromasia Slight; Lymphocytes # (A) 1.9 k/uL (1.0-4.8); Lymphocytes % (A) 21 %; MCHC 30.7 g/dL (31.0-37.0); MCV 81.2 fL (80.0-100.0); Monocytes # (A) 0.4 k/uL (0-1.0); Monocytes % (A) 5 %; Neutrophils # (A) 6.1 k/uL (1.3-7.7); Neutrophils % (A) 69 %; Platelet Count 284 k/uL (150-450); RBC 4.68 m/uL (3.80-5.40); RDW 15.6 % (11.5-15.5); WBC 8.9 k/uL (3.8-10.6)
[2018-07-24 08:29] LABS: ALT 247 U/L (9-52); AST 87 U/L (14-36); Albumin 3.4 g/dL (3.5-5.0); Alkaline Phosphatase 261 U/L (38-126); Amylase 55 U/L (30-110); Anion Gap 10 mmol/L; Blood Urea Nitrogen 14 mg/dL (7-17); Calcium 9.1 mg/dL (8.4-10.2); Carbon Dioxide 20 mmol/L (22-30); Chloride 111 mmol/L (98-107); Glucose 74 mg/dL (74-99); Lipase 62 U/L (23-300); Potassium 4.6 mmol/L (3.5-5.1); Sodium 141 mmol/L (137-145); Total Bilirubin 3.7 mg/dL (0.2-1.3); Total Protein 6.6 g/dL (6.3-8.2)
--- NOTE | 2018-07-24 11:16 | P.CONS ---
History of Present Illness - Reason for Consult Consult date: 07/24/18 Hepatitis right upper quadrant abdominal pain Requesting physician: Elier Tuttle - Chief Complaint Right upper quadrant abdominal pain - History of Present Illness 38-year-old female patient Dr. Alvarez with no significant past medical history presents with acute right upper quadrant abdominal pain that started Friday with "fluorescent orange" colored urine and elevated liver enzymes. She was evaluated in the emergency room 4 days ago with epigastric pain ultrasound reported no evidence of stones, CBD within normal limits. liver function tests at that time TB 1.3. AST 165. ALT 69. AP 111. No history of hepatitis or liver disorders. No changes in medications. She had a few drinks of alcohol over the weekend nothing excessive. Denies history of EtOH abuse. No history of autoimmune disorders. Admission white count 11.3 presently 8.9. Hemoglobin 11.7-13.2. MCV 79-81. Platelet 284-336. Total bilirubin 3.2-3.7. AST 87- 150. ALT 247-344. AP 261-300. Lipase 62. Amylase 55. Hepatitis panel nonreactive. CT abdomen and pelvis liver shows no defect. Spleen normal. No pancreatic mass. Gallbladder normal. Review of Systems Constitutional: Denies fever, chills, sweats, weight gain, or loss. HEENT: Negative for migraines, blurred vision or loss, earaches, drainage, tinnitus, oral mucosal lesions, dysphagia, or odynophagia. CARDIAC: Negative for chest pain, arrhythmias, or palpitation. RESPIRATORY: Negative for shortness of breath, hemoptysis, cough, or sputum production. GI: See HPI for pertinent findings. : Negative for hematuria, urgency, frequency, polyuria, or dysuria. GYNc: Denies possibility of . Negative vaginal discharge. MUSCULOSKELETAL: Negative for muscle aches, swelling, arthritis, and arthralgias. NEUROLOGIC: Negative for stroke or TIA. ENDOCRINE: Negative for thyroid problems. SKIN: Negative for rash or itching. PSYCHIATRIC: Negative history for depression and anxiety Past Medical History Past Medical History: No Reported History History of Any Multi-Drug Resistant Organisms: None Reported Past Surgical History: Appendectomy, Section Past Anesthesia/Blood Transfusion Reactions: No Reported Reaction Additional Past Anesthesia/Blood Transfusion Reaction / Comm: CLAUSTERPHOBIA Past Psychological History: No Psychological Hx Reported Smoking Status: Never smoker Past Alcohol Use History: None Reported Past Drug Use History: None Reported - Past Family History Mother Family Medical History: Diabetes Mellitus Father Family Medical History: No Reported History Medications and Allergies Home Medications Medication Instructions Recorded Confirmed Type Ibuprofen [Motrin Ib] 400 mg PO Q6H PRN 07/23/18 07/23/18 History Allergies Allergy/AdvReac Type Severity Reaction Status Date / Time Penicillins Allergy Rash/Hives Verified 07/23/18 16:24 Physical Exam Vitals: Vital Signs Temp Pulse Pulse Resp BP BP Pulse Ox 07/24/18 06:41 98.1 F 83 18 106/64 99 07/23/18 23:00 97.1 F L 66 18 137/91 96 07/23/18 20:51 71 16 112/67 98 07/23/18 19:30 97.7 F 70 16 125/77 100 07/23/18 15:44 98.4 F 72 18 113/65 98 Intake and Output 07/23/18 07/24/18 07/24/18 22:59 06:59 14:59 Intake Total 0 0 Balance 0 0 Intake: Oral 0 0 Other: # Voids 1 1 Weight 98.883 kg 98.883 kg General appearance: The patient is alert, oriented, in no acute distress. Mildly jaundice. HET: Head is normocephalic and atraumatic. Pupils are equal and reactive. Sclerae icterus. Oropharynx is clear without lesions. Neck: Supple without lymphadenopathy. Trachea midline. Heart: S1 S2. Regular rate and rhythm. Lungs: No crackles or wheezes are heard. Abdomen: Soft, tenderness right upper quadrant, nondistended with bowel sounds. No peritoneal signs. No palpable organomegaly or masses. Extremities: Normal skin color and turgor. No cyanosis, rash, ulceration, clubbing, or edema. Radial and pedal pulses are 2/4 bilaterally. Neurological: No focal deficits. Strength and sensation are grossly intact. Results CBC & Chem 7: 07/24/18 07:44 07/24/18 07:44 Labs: Abnormal Lab Results - Last 24 Hours (Table) 07/23/18 07/23/18 07/23/18 Range/Units 16:43 16:43 17:48 WBC 11.3 H (3.8-10.6) k/uL MCV 79.8 L (80.0-100.0) fL MCHC (31.0-37.0) g/dL RDW (11.5-15.5) % Neutrophils # 7.9 H (1.3-7.7) k/uL Chloride 110 H (98-107) mmol/L Carbon Dioxide 20 L (22-30) mmol/L Glucose 100 H (74-99) mg/dL Total Bilirubin 3.2 H (0.2-1.3) mg/dL AST 150 H (14-36) U/L ALT 344 H (9-52) U/L Alkaline Phosphatase 300 H (38-126) U/L Albumin (3.5-5.0) g/dL Urine Appearance Cloudy H (Clear) Urine Protein Trace H (Negative) Urine Ketones 1+ H (Negative) Urine Blood Moderate H (Negative) Urine Bilirubin 1+ H (Negative) Ur Leukocyte Esterase Large H (Negative) Urine RBC 42 H (0-5) /hpf Urine WBC 48 H (0-5) /hpf Ur Squamous Epith Cells 18 H (0-4) /hpf Urine Bacteria Occasional H (None) /hpf Urine Mucus Rare H (None) /hpf 07/24/18 07/24/18 Range/Units 07:44 07:44 WBC (3.8-10.6) k/uL MCV (80.0-100.0) fL MCHC 30.7 L (31.0-37.0) g/dL RDW 15.6 H (11.5-15.5) % Neutrophils # (1.3-7.7) k/uL Chloride 111 H (98-107) mmol/L Carbon Dioxide 20 L (22-30) mmol/L Glucose (74-99) mg/dL Total Bilirubin 3.7 H (0.2-1.3) mg/dL AST 87 H (14-36) U/L ALT 247 H (9-52) U/L Alkaline Phosphatase 261 H (38-126) U/L Albumin 3.4 L (3.5-5.0) g/dL Urine Appearance (Clear) Urine Protein (Negative) Urine Ketones (Negative) Urine Blood (Negative) Urine Bilirubin (Negative) Ur Leukocyte Esterase (Negative) Urine RBC (0-5) /hpf Urine WBC (0-5) /hpf Ur Squamous Epith Cells (0-4) /hpf Urine Bacteria (None) /hpf Urine Mucus (None) /hpf CT scan - abdomen: report reviewed (Dr. Damico) US - abdomen: report reviewed (Dr. Damico) Assessment and Plan (1) Hepatitis Narrative/Plan: -year-old female admitted with acute right upper quadrant abdominal pain 4 days with elevated liver enzymes hyperbilirubinemia consistent with acute hepatitis. Etiology unclear. Denies history of EtOH abuse. Radiographic imaging reported no obvious gallbladder or liver biliary duct abnormalities no evidence of cholelithiasis. Underlying viral possible autoimmune hepatitis cannot be excluded. Current Visit: Yes Status: Acute Code(s): K75.9 - INFLAMMATORY LIVER DISEASE , UNSPECIFIED SNOMED Code(s): 991156676 (2) Elevated liver enzymes Current Visit: Yes Status: Acute Code(s): R74.8 - ABNORMAL LEVELS OF OTHER SERUM ENZYMES SNOMED Code(s): 123932590 (3) Right upper quadrant pain Current Visit: Yes Status: Acute Code(s): R10.11 - RIGHT UPPER QUADRANT PAIN SNOMED Code(s): 495142827 Plan: 1. MRCP. 2. Serologic workup for chronic liver disease. Viral studies requested. Bilirubin fractions requested. Daily monitoring of CBC CMP. Will follow closely with you. Thank you for this kind referral and the opportunity to participate in the care of your patient. This consultation was discussed with Dr. Damico. The impression and plan of care have been directed as dictated.
[2018-07-24] MEDS ORDERED: LORazepam 2 MG/ML INJ IV STA (12:19)
--- NOTE | 2018-07-24 12:41 | P.HPIM ---
History of Present Illness H&P Date: 07/24/18 Chief Complaint: Abdominal pain This is a 38-year-old female, patient of Dr. Alvarez. She has no sniffing a past medical history. Patient has been in the ER twice now for this right upper quadrant abdominal pain starting on July 20. At that time she was discharged home and told to follow-up with her PCP. Patient reports that her abdominal pain had started 5 days ago. And on Friday she had severe nausea vomiting and diarrhea. Yesterday she had no further vomiting and diarrhea but continued to have the right upper quadrant abdominal pain. The pain did not radiate. She did not have any worsening factors. Hepatitis panel from July 20 was negative. Abdominal ultrasound normal. Computed tomography scan of the abdomen and pelvis was negative. Patient did have elevated white count of 11.3 on admission total bilirubin of 3.2 AST 158 ALT 340 Alk phos 300. Amylase and lipase are normal. GI and surgical service have been placed on consult. GI service has ordered serological workup and an MRCP. Patient denies daily alcohol use. She reports her last alcoholic beverage was on Friday and she did not drink excessively. Patient denies any fever chills or sweats. Denies any burning with urination. Patient denies taking any tylenol or choleterol meds Review of Systems Please refer to HPI otherwise unremarkable Past Medical History Past Medical History: No Reported History History of Any Multi-Drug Resistant Organisms: None Reported Past Surgical History: Appendectomy, Section Past Anesthesia/Blood Transfusion Reactions: No Reported Reaction Additional Past Anesthesia/Blood Transfusion Reaction / Comment(s): CLAUSTERPHOBIA Past Psychological History: No Psychological Hx Reported Smoking Status: Never smoker Past Alcohol Use History: None Reported Past Drug Use History: None Reported - Past Family History Mother Family Medical History: Diabetes Mellitus Father Family Medical History: No Reported History Medications and Allergies Home Medications Medication Instructions Recorded Confirmed Type Ibuprofen [Motrin Ib] 400 mg PO Q6H PRN 07/23/18 07/23/18 History Allergies Allergy/AdvReac Type Severity Reaction Status Date / Time Penicillins Allergy Rash/Hives Verified 07/23/18 16:24 Physical Exam Vitals: Vital Signs Temp Pulse Pulse Resp BP BP Pulse Ox 07/24/18 08:00 18 07/24/18 06:41 98.1 F 83 18 106/64 99 07/23/18 23:00 97.1 F L 66 18 137/91 96 07/23/18 20:51 71 16 112/67 98 07/23/18 19:30 97.7 F 70 16 125/77 100 07/23/18 15:44 98.4 F 72 18 113/65 98 Intake and Output 07/23/18 07/24/18 07/24/18 22:59 06:59 14:59 Intake Total 0 0 Balance 0 0 Intake: Oral 0 0 Other: Voiding Method Toilet # Voids 1 1 Weight 98.883 kg 98.883 kg Head normocephalic Neck supple Lungs clear to auscultation bilaterally no wheezing or crackles Heart regular rate and rhythm S1-S2, no rub or gallop Abdomen is soft right upper quadrant tenderness positive bowel sounds Extremities no edema Neuro alert and orientated to 3 Results CBC & Chem 7: 07/24/18 07:44 07/24/18 07:44 Labs: Abnormal Lab Results - Last 24 Hours (Table) 07/23/18 07/23/18 07/23/18 Range/Units 16:43 16:43 17:48 WBC 11.3 H (3.8-10.6) k/uL MCV 79.8 L (80.0-100.0) fL MCHC (31.0-37.0) g/dL RDW (11.5-15.5) % Neutrophils # 7.9 H (1.3-7.7) k/uL Chloride 110 H (98-107) mmol/L Carbon Dioxide 20 L (22-30) mmol/L Glucose 100 H (74-99) mg/dL Total Bilirubin 3.2 H (0.2-1.3) mg/dL AST 150 H (14-36) U/L ALT 344 H (9-52) U/L Alkaline Phosphatase 300 H (38-126) U/L Albumin (3.5-5.0) g/dL Urine Appearance Cloudy H (Clear) Urine Protein Trace H (Negative) Urine Ketones 1+ H (Negative) Urine Blood Moderate H (Negative) Urine Bilirubin 1+ H (Negative) Ur Leukocyte Esterase Large H (Negative) Urine RBC 42 H (0-5) /hpf Urine WBC 48 H (0-5) /hpf Ur Squamous Epith Cells 18 H (0-4) /hpf Urine Bacteria Occasional H (None) /hpf Urine Mucus Rare H (None) /hpf 07/24/18 07/24/18 Range/Units 07:44 07:44 WBC (3.8-10.6) k/uL MCV (80.0-100.0) fL MCHC 30.7 L (31.0-37.0) g/dL RDW 15.6 H (11.5-15.5) % Neutrophils # (1.3-7.7) k/uL Chloride 111 H (98-107) mmol/L Carbon Dioxide 20 L (22-30) mmol/L Glucose (74-99) mg/dL Total Bilirubin 3.7 H (0.2-1.3) mg/dL AST 87 H (14-36) U/L ALT 247 H (9-52) U/L Alkaline Phosphatase 261 H (38-126) U/L Albumin 3.4 L (3.5-5.0) g/dL Urine Appearance (Clear) Urine Protein (Negative) Urine Ketones (Negative) Urine Blood (Negative) Urine Bilirubin (Negative) Ur Leukocyte Esterase (Negative) Urine RBC (0-5) /hpf Urine WBC (0-5) /hpf Ur Squamous Epith Cells (0-4) /hpf Urine Bacteria (None) /hpf Urine Mucus (None) /hpf Thrombosis Risk Factor Assmnt - Choose All That Apply Any of the Below Risk Factors Present?: Yes Each Factor Represents 1 point: Obesity (BMI >25) Thrombosis Risk Factor Assessment Total Risk Factor Score: 1 Thrombosis Risk Factor Assessment Level: Low Risk Assessment and Plan Assessment: 1. Acute hepatitis with right upper quadrant abdominal pain. Patient has elevated liver enzymes and elevated bilirubin. GI service has evaluated patient concerns for possible autoimmune hepatitis. They've ordered a serological workup and MRCP. Patient will also be evaluated by surgical service. Abdominal ultrasound and computed tomography scan abdomen and pelvis are normal. Hepatitis panel negative from 07/20/2018. Patient denies daily alcohol use 2. Urinalysis with large leukocytes esterase however has 18 squamous epithelial cells. Likely urine specimen is a contaminant. Patient has no urinary symptoms. Repeat urinalysis and sent for culture. Patient did receive 1 dose of Rocephin in ER 3. Leukocytosis: White count has normalized. Possibly related to liver etiology. However, repeating urinalysis. GI prophylaxis Protonix and DVT prophylaxis Lovenox Time with Patient: Greater than 30 (Greater than 50% of the total time spent in counseling and coordination of care.I performed an examination of the patient and discussed their management with the physician Database Report Writer. I have reviewed the Physician Database Report Writer's notes and agree with the documented findings and plan of care)
[2018-07-24 14:07] LABS: Appearance,Urine Cloudy (Clear); Bacteria,Urine Rare /hpf; Bilirubin,Urine Negative (Negative); Blood,Urine Small (Negative); Color,Urine Yellow; Glucose,Urine (UA) Negative (Negative); Ketones,Urine 3+ (Negative); Leukocyte Esterase,Urine Large (Negative); Mucus,Urine Rare /hpf; Nitrite,Urine Negative (Negative); Protein,Urine Negative (Negative); RBC,Urine 13 /hpf (0-5); Specific Gravity,Urine 1.015 (1.001-1.035); Squamous Epithelial Cell,Urine 8 /hpf (0-4); Urobilinogen,Urine <2.0 mg/dL (<2.0); WBC,Urine 5 /hpf (0-5)
[2018-07-24] MEDS: SODIUM CHLORIDE 0.9% 1,000 ML IV SCH (15:15)
--- NOTE | 2018-07-24 16:19 | P.GSCN ---
History of Present Illness Consult date: 07/24/18 Reason for Consult: Elevated liver enzymes with abdominal pain History of present illness: Patient presents to the ER last night with complaints of abdominal pain. She was actually seen in the ER on Friday with rather acute onset epigastric pain that radiated to the right upper quadrant. No radiation to the back or shoulder. This was associated with nausea vomiting and diarrhea as well. Pain persisted so she came back to the ER on . She does describe dark urine. No history of known gallstones. No heavy alcohol use. Patient was found to have no gallstones on ultrasound. Common bile duct looked normal. Patient's liver enzymes elevated. Hepatitis panel bus far negative. CAT scan shows no definite gallbladder abnormalities as well. Review of Systems The patient denies any acute changes in vision or hearing, no dysphagia or odynophagia, no chest pain or shortness of breath, no dysuria or hematuria, no headache, no runny nose, no rectal bleeding or melena, no unexplained weight loss Past Medical History Past Medical History: No Reported History History of Any Multi-Drug Resistant Organisms: None Reported Past Surgical History: Appendectomy, Section Past Anesthesia/Blood Transfusion Reactions: No Reported Reaction Additional Past Anesthesia/Blood Transfusion Reaction / Comm: CLAUSTERPHOBIA Past Psychological History: No Psychological Hx Reported Smoking Status: Never smoker Past Alcohol Use History: None Reported Past Drug Use History: None Reported - Past Family History Mother Family Medical History: Diabetes Mellitus Father Family Medical History: No Reported History Medications and Allergies Home Medications Medication Instructions Recorded Confirmed Type Ibuprofen [Motrin Ib] 400 mg PO Q6H PRN 07/23/18 07/23/18 History Allergies Allergy/AdvReac Type Severity Reaction Status Date / Time Penicillins Allergy Rash/Hives Verified 07/23/18 16:24 Surgical - Exam Vital Signs Temp Pulse Resp BP Pulse Ox 98.4 F 72 18 113/65 98 07/23/18 15:44 07/23/18 15:44 07/23/18 15:44 07/23/18 15:44 07/23/18 15:44 Physical exam: General: Well-developed, well-nourished HEENT: Normocephalic, sclerae nonicteric Abdomen: Mild epigastric and right upper quadrant tenderness, nondistended Extremities: No edema Neuro: Alert and oriented Results - Labs 07/24/18 07:44 12/21/18 07:44 Abnormal Lab Results - Last 24 Hours (Table) 07/23/18 07/23/18 07/23/18 Range/Units 16:43 16:43 17:48 WBC 11.3 H (3.8-10.6) k/uL MCV 79.8 L (80.0-100.0) fL MCHC (31.0-37.0) g/dL RDW (11.5-15.5) % Neutrophils # 7.9 H (1.3-7.7) k/uL Chloride 110 H (98-107) mmol/L Carbon Dioxide 20 L (22-30) mmol/L Glucose 100 H (74-99) mg/dL Total Bilirubin 3.2 H (0.2-1.3) mg/dL AST 150 H (14-36) U/L ALT 344 H (9-52) U/L Alkaline Phosphatase 300 H (38-126) U/L Albumin (3.5-5.0) g/dL Urine Appearance Cloudy H (Clear) Urine Protein Trace H (Negative) Urine Ketones 1+ H (Negative) Urine Blood Moderate H (Negative) Urine Bilirubin 1+ H (Negative) Ur Leukocyte Esterase Large H (Negative) Urine RBC 42 H (0-5) /hpf Urine WBC 48 H (0-5) /hpf Ur Squamous Epith Cells 18 H (0-4) /hpf Urine Bacteria Occasional H (None) /hpf Urine Mucus Rare H (None) /hpf 07/24/18 07/24/18 07/24/18 Range/Units 07:44 07:44 12:20 WBC (3.8-10.6) k/uL MCV (80.0-100.0) fL MCHC 30.7 L (31.0-37.0) g/dL RDW 15.6 H (11.5-15.5) % Neutrophils # (1.3-7.7) k/uL Chloride 111 H (98-107) mmol/L Carbon Dioxide 20 L (22-30) mmol/L Glucose (74-99) mg/dL Total Bilirubin 3.7 H (0.2-1.3) mg/dL AST 87 H (14-36) U/L ALT 247 H (9-52) U/L Alkaline Phosphatase 261 H (38-126) U/L Albumin 3.4 L (3.5-5.0) g/dL Urine Appearance Cloudy H (Clear) Urine Protein (Negative) Urine Ketones 3+ H (Negative) Urine Blood Small H (Negative) Urine Bilirubin (Negative) Ur Leukocyte Esterase Large H (Negative) Urine RBC 13 H (0-5) /hpf Urine WBC (0-5) /hpf Ur Squamous Epith Cells 8 H (0-4) /hpf Urine Bacteria Rare H (None) /hpf Urine Mucus Rare H (None) /hpf Diabetes panel 07/23/18 07/24/18 Range/Units 16:43 07:44 Sodium 141 141 (137-145) mmol/L Potassium 4.1 4.6 (3.5-5.1) mmol/L Chloride 110 H 111 H (98-107) mmol/L Carbon Dioxide 20 L 20 L (22-30) mmol/L BUN 13 14 (7-17) mg/dL Creatinine 0.85 0.85 (0.52-1.04) mg/dL Glucose 100 H 74 (74-99) mg/dL Calcium 9.5 9.1 (8.4-10.2) mg/dL AST 150 H 87 H (14-36) U/L ALT 344 H 247 H (9-52) U/L Alkaline Phosphatase 300 H 261 H (38-126) U/L Total Protein 7.9 6.6 (6.3-8.2) g/dL Albumin 4.2 3.4 L (3.5-5.0) g/dL Calcium panel 07/23/18 07/24/18 Range/Units 16:43 07:44 Calcium 9.5 9.1 (8.4-10.2) mg/dL Albumin 4.2 3.4 L (3.5-5.0) g/dL Pituitary panel 07/23/18 07/24/18 Range/Units 16:43 07:44 Sodium 141 141 (137-145) mmol/L Potassium 4.1 4.6 (3.5-5.1) mmol/L Chloride 110 H 111 H (98-107) mmol/L Carbon Dioxide 20 L 20 L (22-30) mmol/L BUN 13 14 (7-17) mg/dL Creatinine 0.85 0.85 (0.52-1.04) mg/dL Glucose 100 H 74 (74-99) mg/dL Calcium 9.5 9.1 (8.4-10.2) mg/dL Adrenal panel 07/23/18 07/24/18 Range/Units 16:43 07:44 Sodium 141 141 (137-145) mmol/L Potassium 4.1 4.6 (3.5-5.1) mmol/L Chloride 110 H 111 H (98-107) mmol/L Carbon Dioxide 20 L 20 L (22-30) mmol/L BUN 13 14 (7-17) mg/dL Creatinine 0.85 0.85 (0.52-1.04) mg/dL Glucose 100 H 74 (74-99) mg/dL Calcium 9.5 9.1 (8.4-10.2) mg/dL Total Bilirubin 3.2 H 3.7 H (0.2-1.3) mg/dL AST 150 H 87 H (14-36) U/L ALT 344 H 247 H (9-52) U/L Alkaline Phosphatase 300 H 261 H (38-126) U/L Total Protein 7.9 6.6 (6.3-8.2) g/dL Albumin 4.2 3.4 L (3.5-5.0) g/dL Assessment and Plan (1) Right upper quadrant pain Narrative/Plan: 2-year-old female with elevated liver enzymes associate with abdominal pain. Suspect choledocholithiasis. Await MRCP later today. Further recommendations will follow. Current Visit: Yes Status: Acute Code(s): R10.11 - RIGHT UPPER QUADRANT PAIN SNOMED Code(s): 455350798
[2018-07-24 18:04] LABS: Bilirubin, Conjugated 1.2 mg/dL (0.0-0.3); Bilirubin,Unconjugated 1.3 mg/dL (0.0-1.1); Total Bilirubin 3.5 mg/dL (0.2-1.3)
[2018-07-24 20:20] LABS: EBV-VCA (IgG) 2.8 AI
[2018-07-25 02:03] LABS: Iron Saturation 34.46 (12.00-45.00); Protein, Total 6.1 g/dL (6.2-8.2)
[2018-07-25 07:54] LABS: Basophils # (A) 0.1 k/uL (0-0.2); Basophils % (A) 0 %; Eosinophils # (A) 0.2 k/uL (0-0.7); Eosinophils % (A) 2 %; HCT 40.7 % (34.0-46.0); HGB 12.3 gm/dL (11.4-16.0); Hypochromasia Marked; Lymphocytes # (A) 1.7 k/uL (1.0-4.8); Lymphocytes % (A) 13 %; MCHC 30.2 g/dL (31.0-37.0); MCV 82.5 fL (80.0-100.0); Mean Platelet Volume 7.7; Monocytes # (A) 0.5 k/uL (0-1.0); Monocytes % (A) 4 %; Neutrophils # (A) 10.1 k/uL (1.3-7.7); Neutrophils % (A) 79 %; Platelet Count 336 k/uL (150-450); RBC 4.94 m/uL (3.80-5.40); RDW 15.4 % (11.5-15.5); WBC 12.7 k/uL (3.8-10.6)
[2018-07-25 08:12] LABS: ALT 197 U/L (9-52); AST 63 U/L (14-36); Albumin 3.8 g/dL (3.5-5.0); Alkaline Phosphatase 260 U/L (38-126); Anion Gap 13 mmol/L; Blood Urea Nitrogen 14 mg/dL (7-17); Calcium 9.3 mg/dL (8.4-10.2); Carbon Dioxide 16 mmol/L (22-30); Chloride 110 mmol/L (98-107); Glucose 72 mg/dL (74-99); Potassium 4.7 mmol/L (3.5-5.1); Sodium 139 mmol/L (137-145); Total Bilirubin 2.2 mg/dL (0.2-1.3); Total Protein 7.1 g/dL (6.3-8.2)
[2018-07-25] MEDS: PANTOPRAZOLE 40 MG/10 ML VIAL IVP SCH (09:14)
[2018-07-25] MEDS: ENOXAPARIN 40 MG/0.4 ML SYRINGE SQ SCH (09:14)
[2018-07-25 10:46] LABS: Ceruloplasmin 35.1 mg/dL (20.0-60.0)
--- NOTE | 2018-07-25 11:44 | PN ---
PROGRESS NOTE DATE OF SERVICE: 07/25/2018 Patient is a 38 -year-old pleasant white female admitted to hospital with acute onset of severe epigastric and right upper quadrant abdominal pain for the last 4 days duration, came into the emergency room, was noted to have elevated LFTs and mild jaundice. She had ultrasound of the gallbladder done that did not show any gallstones. CT of the abdomen was also unremarkable. Hepatitis serologies for A, B, and C negative. CMV and EBV serologies were negative. Because of the clinical suspicion for CBD stone, she was scheduled for an MRCP, but the patient was very claustrophobic and the procedure was canceled. This morning she states that her abdominal pain has improved. No nausea, vomiting. No fever, chills, night sweats. PHYSICAL EXAMINATION: Appears comfortable. No apparent distress. VITAL SIGNS: Stable. Blood pressure 109/69, pulse rate 84, temperature 97.8. HEENT examination unremarkable. Conjunctivae pink. Sclerae are slightly icteric. Oral cavity no lesions. Neck no jugular venous distention or lymph node enlargement. Chest was clear to auscultation. HEART: Regular rate and rhythm. ABDOMEN: Soft, it was nontender, nondistended. Liver and spleen not palpable. Bowel sounds are positive. No organomegaly. Extremities: No pedal edema. Skin no rashes. NEUROLOGIC: Alert and oriented x3. No focal deficits. LABS: From today WBC 12.7, hemoglobin 12.3, platelets are normal. T-bilirubin is down to 2.2. AST is down to 63, ALT is down to 197, and alkaline phosphatase is 260. Amylase and lipase are normal. IMPRESSION: This is a young lady presents to the hospital with acute onset of severe epigastric and right upper quadrant abdominal pain and noted to have mild elevation of serum transaminases and jaundice with a bilirubin of 3.5. The symptoms are suspicious for gallstones but surprisingly the ultrasound and CT scan did not show any evidence of gallstones. Because of elevated LFTs, she was scheduled for an MRCP to rule out possibility of a choledocholithiasis. However, the MRCP could not be performed because of severe claustrophobia. In any event, her symptoms are gradually improving and so are the serum transaminases that have improved today, bilirubin is down to 2.2. RECOMMENDATION: We will discuss with Dr. Alba regarding further management. At this time, since his serum transaminases are improving no indication for an ERCP. We will follow her closely during hospital stay. Thank you for this consultation. GREGORIO / ELLIS: [id number] /
--- NOTE | 2018-07-25 11:46 | P.PN ---
Subjective Progress Note Date: 07/25/18 Principal diagnosis: Abdominal pain Patient says her pain is improved. Labs are likewise trending down. Apparently she was unable to tolerate her MR I because of anxiety. She is hungry. Objective - Vital Signs Vital signs: Vital Signs Temp 97.6 F 07/25/18 07:00 Pulse 68 07/25/18 07:00 Resp 16 07/25/18 07:00 BP 115/74 07/25/18 07:00 Pulse Ox 97 07/25/18 07:00 Intake & Output 07/24/18 07/25/18 07/25/18 18:59 06:59 18:59 Intake Total 0 Balance 0 Weight 98.883 kg Intake: Oral 0 Other: Voiding Method Toilet Toilet # Voids 1 1 - Exam Abdomen: Soft, nondistended, mild right upper quadrant tenderness - Labs CBC & Chem 7: 07/25/18 07:33 07/25/18 07:33 Labs: Abnormal Lab Results - Last 24 Hours (Table) 07/24/18 07/24/18 07/24/18 Range/Units 07:44 07:44 12:20 WBC (3.8-10.6) k/uL MCHC (31.0-37.0) g/dL Neutrophils # (1.3-7.7) k/uL Chloride (98-107) mmol/L Carbon Dioxide (22-30) mmol/L Glucose (74-99) mg/dL Total Bilirubin 3.5 H (0.2-1.3) mg/dL Conjugated Bilirubin 1.2 H (0.0-0.3) mg/dL Unconjugated Bilirubin 1.3 H (0.0-1.1) mg/dL Delta Bilirubin 1.0 H (0.0-0.2) mg/dL AST (14-36) U/L ALT (9-52) U/L Alkaline Phosphatase (38-126) U/L Total Protein (PEP) (6.2-8.2) g/dL Urine Appearance Cloudy H (Clear) Urine Ketones 3+ H (Negative) Urine Blood Small H (Negative) Ur Leukocyte Esterase Large H (Negative) Urine RBC 13 H (0-5) /hpf Ur Squamous Epith Cells 8 H (0-4) /hpf Urine Bacteria Rare H (None) /hpf Urine Mucus Rare H (None) /hpf EBV Capsid Ag IgG Intrp POSITIVE H (NEGATIVE) EBV Nuc Ag IgG Interp POSITIVE H (NEGATIVE) 07/24/18 07/25/18 07/25/18 Range/Units 15:55 07:33 07:33 WBC 12.7 H (3.8-10.6) k/uL MCHC 30.2 L (31.0-37.0) g/dL Neutrophils # 10.1 H (1.3-7.7) k/uL Chloride 110 H (98-107) mmol/L Carbon Dioxide 16 L (22-30) mmol/L Glucose 72 L (74-99) mg/dL Total Bilirubin 2.2 H (0.2-1.3) mg/dL Conjugated Bilirubin (0.0-0.3) mg/dL Unconjugated Bilirubin (0.0-1.1) mg/dL Delta Bilirubin (0.0-0.2) mg/dL AST 63 H (14-36) U/L ALT 197 H (9-52) U/L Alkaline Phosphatase 260 H (38-126) U/L Total Protein (PEP) 6.1 L (6.2-8.2) g/dL Urine Appearance (Clear) Urine Ketones (Negative) Urine Blood (Negative) Ur Leukocyte Esterase (Negative) Urine RBC (0-5) /hpf Ur Squamous Epith Cells (0-4) /hpf Urine Bacteria (None) /hpf Urine Mucus (None) /hpf EBV Capsid Ag IgG Intrp (NEGATIVE) EBV Nuc Ag IgG Interp (NEGATIVE) Microbiology - Last 24 Hours (Table) 07/24/18 12:20 Urine Culture - Preliminary Urine,Voided Assessment and Plan (1) Right upper quadrant pain Narrative/Plan: Will begin diet. Advance as tolerated. Recheck labs tomorrow. Options reviewed with the patient in detail. At this point options would include observation, endoscopic ultrasound, repeat attempts at MRI, or cholecystectomy. Patient will consider this further. We will reevaluate tomorrow and review repeat labs. Current Visit: Yes Status: Acute Code(s): R10.11 - RIGHT UPPER QUADRANT PAIN SNOMED Code(s): 691050999
[2018-07-25] MEDS: SODIUM CHLORIDE 0.9% 1,000 ML IV SCH (12:31)
--- NOTE | 2018-07-25 12:58 | P.PN ---
Subjective Progress Note Date: 07/25/18 This is a 38-year-old female, patient of Dr. Alvarez. She has no sniffing a past medical history. Patient has been in the ER twice now for this right upper quadrant abdominal pain starting on July 20. At that time she was discharged home and told to follow-up with her PCP. Patient reports that her abdominal pain had started 5 days ago. And on Friday she had severe nausea vomiting and diarrhea. Yesterday she had no further vomiting and diarrhea but continued to have the right upper quadrant abdominal pain. The pain did not radiate. She did not have any worsening factors. Hepatitis panel from July 20 was negative. Abdominal ultrasound normal. Computed tomography scan of the abdomen and pelvis was negative. Patient did have elevated white count of 11.3 on admission total bilirubin of 3.2 AST 158 ALT 340 Alk phos 300. Amylase and lipase are normal. GI and surgical service have been placed on consult. GI service has ordered serological workup and an MRCP. Patient denies daily alcohol use. She reports her last alcoholic beverage was on Friday and she did not drink excessively. Patient denies any fever chills or sweats. Denies any burning with urination. Patient denies taking any tylenol or choleterol meds On 07/25/2018 patient is alert and oriented 3 in no apparent distress, she is still complaining of mild abdominal pain, she is complaining of nausea, she was unable to proceed with MRCP due to anxiety, she was evaluated by Dr. Alba, and at this time she will be started on full liquid diet labs will be repeated tomorrow. On review of system there is no fever or chills no headache no dizziness no chest pain no shortness of breath no cough no vomiting no diarrhea and no urinary symptoms. Objective - Vital Signs Vital signs: Vital Signs Temp 97.6 F 07/25/18 07:00 Pulse 68 07/25/18 07:00 Resp 16 07/25/18 07:00 BP 115/74 07/25/18 07:00 Pulse Ox 97 07/25/18 07:00 Intake & Output 07/24/18 07/25/18 07/25/18 18:59 06:59 18:59 Intake Total 0 Balance 0 Weight 98.883 kg Intake: Oral 0 Other: Voiding Method Toilet Toilet # Voids 1 1 - Exam Head normocephalic and atraumatic Neck supple no JVD Lungs clear to auscultation bilaterally no wheezing or crackles Heart regular rate and rhythm S1-S2, no rub or gallop Abdomen is soft right upper quadrant tenderness positive bowel sounds Extremities no edema no cyanosis or clubbing Neuro alert and orientated to 3 - Labs CBC & Chem 7: 18 07:33 12 07:33 Labs: Abnormal Lab Results - Last 24 Hours (Table) 07/24/18 07/24/18 07/24/18 Range/Units 07:44 07:44 12:20 WBC (3.8-10.6) k/uL MCHC (31.0-37.0) g/dL Neutrophils # (1.3-7.7) k/uL Chloride (98-107) mmol/L Carbon Dioxide (22-30) mmol/L Glucose (74-99) mg/dL Total Bilirubin 3.5 H (0.2-1.3) mg/dL Conjugated Bilirubin 1.2 H (0.0-0.3) mg/dL Unconjugated Bilirubin 1.3 H (0.0-1.1) mg/dL Delta Bilirubin 1.0 H (0.0-0.2) mg/dL AST (14-36) U/L ALT (9-52) U/L Alkaline Phosphatase (38-126) U/L Total Protein (PEP) (6.2-8.2) g/dL Urine Appearance Cloudy H (Clear) Urine Ketones 3+ H (Negative) Urine Blood Small H (Negative) Ur Leukocyte Esterase Large H (Negative) Urine RBC 13 H (0-5) /hpf Ur Squamous Epith Cells 8 H (0-4) /hpf Urine Bacteria Rare H (None) /hpf Urine Mucus Rare H (None) /hpf EBV Capsid Ag IgG Intrp POSITIVE H (NEGATIVE) EBV Nuc Ag IgG Interp POSITIVE H (NEGATIVE) 07/24/18 07/25/18 07/25/18 Range/Units 15:55 07:33 07:33 WBC 12.7 H (3.8-10.6) k/uL MCHC 30.2 L (31.0-37.0) g/dL Neutrophils # 10.1 H (1.3-7.7) k/uL Chloride 110 H (98-107) mmol/L Carbon Dioxide 16 L (22-30) mmol/L Glucose 72 L (74-99) mg/dL Total Bilirubin 2.2 H (0.2-1.3) mg/dL Conjugated Bilirubin (0.0-0.3) mg/dL Unconjugated Bilirubin (0.0-1.1) mg/dL Delta Bilirubin (0.0-0.2) mg/dL AST 63 H (14-36) U/L ALT 197 H (9-52) U/L Alkaline Phosphatase 260 H (38-126) U/L Total Protein (PEP) 6.1 L (6.2-8.2) g/dL Urine Appearance (Clear) Urine Ketones (Negative) Urine Blood (Negative) Ur Leukocyte Esterase (Negative) Urine RBC (0-5) /hpf Ur Squamous Epith Cells (0-4) /hpf Urine Bacteria (None) /hpf Urine Mucus (None) /hpf EBV Capsid Ag IgG Intrp (NEGATIVE) EBV Nuc Ag IgG Interp (NEGATIVE) Microbiology - Last 24 Hours (Table) 07/24/18 12:20 Urine Culture - Preliminary Urine,Voided Assessment and Plan Plan: 1. Acute hepatitis with right upper quadrant abdominal pain. Patient has elevated liver enzymes and elevated bilirubin. GI service has evaluated patient concerns for possible autoimmune hepatitis. They've ordered a serological workup and MRCP. Patient will also be evaluated by surgical service. Abdominal ultrasound and computed tomography scan abdomen and pelvis are normal. Hepatitis panel negative from 07/20/2018. Patient denies daily alcohol use. MRCP was ordered for this morning however patient was unable to tolerate to due to anxiety she was evaluated by Dr. Alba, multiple options were given to patient's for management at this time she was started on full liquid diet repeat labs in a.m. 2. Urinalysis with large leukocytes esterase however has 18 squamous epithelial cells. Likely urine specimen is a contaminant. Patient has no urinary symptoms. Repeat urinalysis and sent for culture. Continue with IV Rocephin at this time 3. Leukocytosis: White count has normalized. Possibly related to liver etiology. However, repeating urinalysis. GI prophylaxis Protonix and DVT prophylaxis Lovenox
[2018-07-26 07:21] LABS: Basophils % (A) 0 %; Eosinophils # (A) 0.3 k/uL (0-0.7); Eosinophils % (A) 3 %; HCT 38.1 % (34.0-46.0); HGB 12.2 gm/dL (11.4-16.0); Hypochromasia Slight; Lymphocytes % (A) 21 %; MCHC 32.1 g/dL (31.0-37.0); MCV 80.9 fL (80.0-100.0); Mean Platelet Volume 8.2; Monocytes # (A) 0.5 k/uL (0-1.0); Monocytes % (A) 6 %; Neutrophils # (A) 6.5 k/uL (1.3-7.7); Neutrophils % (A) 69 %; Platelet Count 291 k/uL (150-450); RBC 4.71 m/uL (3.80-5.40); RDW 15.7 % (11.5-15.5); WBC 9.5 k/uL (3.8-10.6)
[2018-07-26 07:31] LABS: ALT 172 U/L (9-52); AST 85 U/L (14-36); Albumin 3.7 g/dL (3.5-5.0); Alkaline Phosphatase 246 U/L (38-126); Anion Gap 9 mmol/L; Blood Urea Nitrogen 11 mg/dL (7-17); Calcium 9.3 mg/dL (8.4-10.2); Carbon Dioxide 25 mmol/L (22-30); Chloride 108 mmol/L (98-107); Glucose 98 mg/dL (74-99); Potassium 4.3 mmol/L (3.5-5.1); Sodium 142 mmol/L (137-145); Total Bilirubin 1.6 mg/dL (0.2-1.3); Total Protein 6.9 g/dL (6.3-8.2)
[2018-07-26] MEDS: PANTOPRAZOLE 40 MG/10 ML VIAL IVP SCH (07:50)
[2018-07-26] MEDS: ENOXAPARIN 40 MG/0.4 ML SYRINGE SQ SCH (07:50)
[2018-07-26] MEDS: SODIUM CHLORIDE 0.9% 1,000 ML IV SCH (08:50)
[2018-07-26] MEDS: IBUPROFEN 400 MG TAB PO PRN ×2 (11:43→17:42)
--- NOTE | 2018-07-26 12:33 | P.PN ---
Subjective Progress Note Date: 07/26/18 Principal diagnosis: Abdominal pain Patient was apparently feeling better however this afternoon her pain became more severe once again. She is afebrile. Labs seem improved. Objective - Vital Signs Vital signs: Vital Signs Temp 96.7 F L 07/26/18 06:04 Pulse 83 07/26/18 06:04 Resp 18 07/26/18 06:04 BP 111/73 07/26/18 06:04 Pulse Ox 99 07/26/18 06:04 Intake & Output 07/25/18 07/26/18 07/26/18 18:59 06:59 18:59 Intake Total 350 Balance 350 Weight 98.883 kg Intake: Oral 350 Other: Voiding Method Toilet # Voids 3 2 - Exam Abdomen: Soft, nondistended, mild upper abdominal tenderness - Labs CBC & Chem 7: 07/26/18 06:57 07/26/18 06:57 Labs: Abnormal Lab Results - Last 24 Hours (Table) 07/26/18 07/26/18 Range/Units 06:57 06:57 RDW 15.7 H (11.5-15.5) % Chloride 108 H (98-107) mmol/L Total Bilirubin 1.6 H (0.2-1.3) mg/dL AST 85 H (14-36) U/L ALT 172 H (9-52) U/L Alkaline Phosphatase 246 H (38-126) U/L Microbiology - Last 24 Hours (Table) 07/24/18 12:20 Urine Culture - Final Urine,Voided Assessment and Plan (1) Right upper quadrant pain Narrative/Plan: Continue full liquid diet. Repeat labs tomorrow. Patient considering reattempts at [facility] here at this institution. Current Visit: Yes Status: Acute Code(s): R10.11 - RIGHT UPPER QUADRANT PAIN SNOMED Code(s): 908126450
--- NOTE | 2018-07-26 14:09 | PN ---
PROGRESS NOTE DATE OF SERVICE: 07/26/2018 Patient is a 38-year-old pleasant white female admitted to the hospital with abdominal pain and elevated LFTs. Ultrasound of the abdomen as well as CAT scan does not show any evidence of gallstones. MRCP could not be performed as patient was claustrophobic. Presently, she is doing well. Denies any symptoms. Abdominal pain has resolved. PHYSICAL EXAMINATION: Appears comfortable, in no apparent distress. VITAL SIGNS: Stable. Blood pressure is 126/79, pulse rate 65, temperature 97.6. HEENT examination unremarkable. Conjunctivae pink. Sclerae anicteric. Oral cavity no lesions. Neck: No jugular venous distention or lymph node enlargement. Chest was clear to auscultation. HEART: Regular rate and rhythm. ABDOMEN: Soft. Mild tenderness in the epigastric area. Bowel sounds are positive. EXTREMITIES: No pedal edema. Skin no rashes. NEUROLOGIC: Alert and oriented x3. No focal deficits. LABS: From today WBC 9.4, hemoglobin 12.2, platelets are normal. T-bilirubin is 1.6, AST 85, ALT 172, alkaline phosphatase 246. Hepatitis serologies for A, B, and C are negative. IMPRESSION: Acute onset of epigastric pain/right upper quadrant abdominal pain of 2 days duration with elevated LFTs and mild jaundice. Ultrasound and CT scan did not show any evidence of gallstones or biliary ductal dilation. Her LFTs are improving and so does serum transaminases are gradually improving. MRCP could not be performed because of the patient's history of claustrophobia. At this time cannot exclude possibility of acute hepatitis versus gallstones. RECOMMENDATIONS: 1. Advance diet as tolerated. 2. We will schedule the patient for an MRCP and an open MRI on an outpatient basis and she can follow up in the office following discharge from the hospital. Thank you for this consultation. MMODL / IJN: [id number] /
--- NOTE | 2018-07-26 15:06 | P.PN ---
Subjective Progress Note Date: 07/26/18 This is a 38-year-old female, patient of Dr. Alvarez. She has no sniffing a past medical history. Patient has been in the ER twice now for this right upper quadrant abdominal pain starting on July 20. At that time she was discharged home and told to follow-up with her PCP. Patient reports that her abdominal pain had started 5 days ago. And on Friday she had severe nausea vomiting and diarrhea. Yesterday she had no further vomiting and diarrhea but continued to have the right upper quadrant abdominal pain. The pain did not radiate. She did not have any worsening factors. Hepatitis panel from July 20 was negative. Abdominal ultrasound normal. Computed tomography scan of the abdomen and pelvis was negative. Patient did have elevated white count of 11.3 on admission total bilirubin of 3.2 AST 158 ALT 340 Alk phos 300. Amylase and lipase are normal. GI and surgical service have been placed on consult. GI service has ordered serological workup and an MRCP. Patient denies daily alcohol use. She reports her last alcoholic beverage was on Friday and she did not drink excessively. Patient denies any fever chills or sweats. Denies any burning with urination. Patient denies taking any tylenol or choleterol meds On 07/25/2018 patient is alert and oriented 3 in no apparent distress, she is still complaining of mild abdominal pain, she is complaining of nausea, she was unable to proceed with MRCP due to anxiety, she was evaluated by Dr. Alba, and at this time she will be started on full liquid diet labs will be repeated tomorrow. On review of system there is no fever or chills no headache no dizziness no chest pain no shortness of breath no cough no vomiting no diarrhea and no urinary symptoms. On 07/26/2018 patient is alert and oriented 3 in no apparent distress she is still complaining of abdominal pain and nausea otherwise no complaints fever or chills no headache or dizziness no chest pain no shortness of breath no cough, and no urinary symptoms. Objective - Vital Signs Vital signs: Vital Signs Temp 96.7 F L 07/26/18 06:04 Pulse 83 07/26/18 06:04 Resp 18 07/26/18 06:04 BP 111/73 07/26/18 06:04 Pulse Ox 99 07/26/18 06:04 Intake & Output 07/25/18 07/26/18 07/26/18 18:59 06:59 18:59 Intake Total 350 Balance 350 Weight 98.883 kg Intake: Oral 350 Other: Voiding Method Toilet # Voids 3 2 - Exam Head normocephalic and atraumatic Neck supple no JVD Lungs clear to auscultation bilaterally no wheezing or crackles Heart regular rate and rhythm S1-S2, no rub or gallop Abdomen is soft right upper quadrant tenderness positive bowel sounds Extremities no edema no cyanosis or clubbing Neuro alert and orientated to 3 - Labs CBC & Chem 7: 07/26/18 06:57 07/26/18 06:57 Labs: Abnormal Lab Results - Last 24 Hours (Table) 07/26/18 07/26/18 Range/Units 06:57 06:57 RDW 15.7 H (11.5-15.5) % Chloride 108 H (98-107) mmol/L Total Bilirubin 1.6 H (0.2-1.3) mg/dL AST 85 H (14-36) U/L ALT 172 H (9-52) U/L Alkaline Phosphatase 246 H (38-126) U/L Microbiology - Last 24 Hours (Table) 07/24/18 12:20 Urine Culture - Final Urine,Voided Assessment and Plan Plan: 1. Acute hepatitis with right upper quadrant abdominal pain. Patient has elevated liver enzymes and elevated bilirubin. GI service has evaluated patient concerns for possible autoimmune hepatitis. They've ordered a serological workup and MRCP. Patient will also be evaluated by surgical service. Abdominal ultrasound and computed tomography scan abdomen and pelvis are normal. Hepatitis panel negative from 07/20/2018. Patient denies daily alcohol use. MRCP was ordered for this morning however patient was unable to tolerate to due to anxiety she was evaluated by Dr. Alba, multiple options were given to patient's for management at this time she was started on full liquid diet repeat labs in a.m. 2. Urinalysis with large leukocytes esterase however has 18 squamous epithelial cells. Likely urine specimen is a contaminant. Patient has no urinary symptoms. Repeat urinalysis and sent for culture. Continue with IV Rocephin at this time 3. Leukocytosis: White count has normalized. Possibly related to liver etiology. However, repeating urinalysis. GI prophylaxis Protonix and DVT prophylaxis Lovenox
[2018-07-26] MEDS ORDERED: HYDROcodone/APAP 7.5-325MG 1 EACH TAB PO PRN (17:29)
[2018-07-27 00:54] VITALS: RESP 18
[2018-07-27 06:32] VITALS: BP 113/75; PULSE 72; TEMP 98
[2018-07-27] MEDS ORDERED: PANTOPRAZOLE 40 MG TABLET PO SCH (07:30)
[2018-07-27] MEDS: ENOXAPARIN 40 MG/0.4 ML SYRINGE SQ SCH (08:18)
[2018-07-27] MEDS: SODIUM CHLORIDE 0.9% 1,000 ML IV SCH (08:19)
--- NOTE | 2018-07-27 11:29 | P.PN ---
Subjective Progress Note Date: 07/27/18 This is a 38-year-old female, patient of Dr. Alvarez. She has no sniffing a past medical history. Patient has been in the ER twice now for this right upper quadrant abdominal pain starting on July 20. At that time she was discharged home and told to follow-up with her PCP. Patient reports that her abdominal pain had started 5 days ago. And on Friday she had severe nausea vomiting and diarrhea. Yesterday she had no further vomiting and diarrhea but continued to have the right upper quadrant abdominal pain. The pain did not radiate. She did not have any worsening factors. Hepatitis panel from July 20 was negative. Abdominal ultrasound normal. Computed tomography scan of the abdomen and pelvis was negative. Patient did have elevated white count of 11.3 on admission total bilirubin of 3.2 AST 158 ALT 340 Alk phos 300. Amylase and lipase are normal. GI and surgical service have been placed on consult. GI service has ordered serological workup and an MRCP. Patient denies daily alcohol use. She reports her last alcoholic beverage was on Friday and she did not drink excessively. Patient denies any fever chills or sweats. Denies any burning with urination. Patient denies taking any tylenol or choleterol meds On 07/25/2018 patient is alert and oriented 3 in no apparent distress, she is still complaining of mild abdominal pain, she is complaining of nausea, she was unable to proceed with MRCP due to anxiety, she was evaluated by Dr. Alba, and at this time she will be started on full liquid diet labs will be repeated tomorrow. On review of system there is no fever or chills no headache no dizziness no chest pain no shortness of breath no cough no vomiting no diarrhea and no urinary symptoms. On 07/26/2018 patient is alert and oriented 3 in no apparent distress she is still complaining of abdominal pain and nausea otherwise no complaints fever or chills no headache or dizziness no chest pain no shortness of breath no cough, and no urinary symptoms. 07/27/2018 patient still complaining of right upper quadrant abdominal pain. Pain worsens after eating the full liquid diet. Patient denies any nausea or vomiting. Does report bowel movements. Denies any chest pain or shortness of breath. Denies any difficulty urinating. Objective - Vital Signs Vital signs: Vital Signs Temp 98.0 F 07/27/18 06:31 Pulse 72 07/27/18 06:31 Resp 18 07/27/18 06:31 BP 113/75 07/27/18 06:31 Pulse Ox 98 07/27/18 06:31 Intake & Output 07/26/18 07/27/18 07/27/18 18:59 06:59 18:59 Intake Total 800 Balance 800 Intake: Oral 800 Other: Voiding Method Toilet # Voids 4 2 - Exam Head normocephalic Neck supple Lungs clear to auscultation bilaterally no wheezing or crackles Heart regular rate and rhythm S1-S2, no rub or gallop Abdomen is soft right upper quadrant tenderness nondistended positive bowel sounds no hepatosplenomegaly Extremities no edema Neuro alert and orientated to 3 - Labs CBC & Chem 7: 07/26/18 06:57 07/26/18 06:57 Assessment and Plan Assessment: 1. Acute hepatitis with right upper quadrant abdominal pain. Patient has elevated liver enzymes and elevated bilirubin. GI service has evaluated patient concerns for possible autoimmune hepatitis. They've ordered a serological workup and MRCP. Patient will also be evaluated by surgical service. Abdominal ultrasound and computed tomography scan abdomen and pelvis are normal. Hepatitis panel negative from 07/20/2018. Patient denies daily alcohol use. MRCP was ordered for this morning however patient was unable to tolerate to due to anxiety she was evaluated by Dr. Alba, multiple options were given to patient's for management at this time she was started on full liquid diet repeat labs in a.m. 2. Urinalysis with large leukocytes esterase however has 18 squamous epithelial cells. Likely urine specimen is a contaminant. Patient has no urinary symptoms. Urine culture negative. Patient currently on Rocephin 3. Leukocytosis: White count has normalized. Possibly related to liver etiology. GI prophylaxis Protonix and DVT prophylaxis Lovenox Plan Awaiting a.m. labs Checking to see if MRCP can be done inpatient today with IV Ativan to help with patient's claustrophobia I performed an examination of the patient and discussed their management with the physician Bridal Sales Consultant. I have reviewed the Physician Bridal Sales Consultant's notes and agree with the documented findings and plan of care.
--- NOTE | 2018-07-27 11:36 | P.PN ---
Subjective Progress Note Date: 07/27/18 Principal diagnosis: Abdominal pain Patient says her pain is improved today. Morning labs are pending. Tolerating diet. Objective - Vital Signs Vital signs: Vital Signs Temp 98.0 F 07/27/18 06:31 Pulse 72 07/27/18 06:31 Resp 18 07/27/18 06:31 BP 113/75 07/27/18 06:31 Pulse Ox 98 07/27/18 06:31 Intake & Output 07/26/18 07/27/18 07/27/18 18:59 06:59 18:59 Intake Total 800 Balance 800 Intake: Oral 800 Other: Voiding Method Toilet # Voids 4 2 - Exam Abdomen: Soft, nondistended, mild right upper quadrant tenderness - Labs CBC & Chem 7: 07/26/18 06:57 07/26/18 06:57 Assessment and Plan (1) Right upper quadrant pain Narrative/Plan: Await morning labs. Continue diet. Possible discharge today. Outpatient MRCP Current Visit: Yes Status: Acute Code(s): R10.11 - RIGHT UPPER QUADRANT PAIN SNOMED Code(s): 286869071
[2018-07-27 11:44] LABS: Basophils % (A) 0 %; Eosinophils # (A) 0.2 k/uL (0-0.7); Eosinophils % (A) 2 %; HCT 39.7 % (34.0-46.0); HGB 12.1 gm/dL (11.4-16.0); Lymphocytes # (A) 1.5 k/uL (1.0-4.8); Lymphocytes % (A) 16 %; MCH 24.5 pg (25.0-35.0); MCHC 30.6 g/dL (31.0-37.0); MCV 80.3 fL (80.0-100.0); Mean Platelet Volume 7.1; Monocytes # (A) 0.5 k/uL (0-1.0); Monocytes % (A) 5 %; Neutrophils # (A) 6.9 k/uL (1.3-7.7); Neutrophils % (A) 75 %; Platelet Count 333 k/uL (150-450); RBC 4.94 m/uL (3.80-5.40); RDW 15.7 % (11.5-15.5); WBC 9.2 k/uL (3.8-10.6)
--- NOTE | 2018-07-27 11:47 | PN ---
PROGRESS NOTE The patient is a 38-year-old white female admitted to the hospital with right upper quadrant abdominal pain and elevated LFTs. Ultrasound and CT scan were unremarkable. The patient is doing well. Abdominal pain has resolved. No new symptoms. PHYSICAL EXAMINATION: Appears comfortable no apparent distress. VITAL SIGNS: Stable. Blood pressure is 105/72, pulse rate 67, temperature 97.6. HEENT examination unremarkable. Conjunctivae pink. Sclerae anicteric. Oral cavity no lesions. Neck: No jugular venous distention or lymph node enlargement. The chest was clear to auscultation. HEART: Regular rate and rhythm. ABDOMEN: Soft. Bowel sounds are positive. No organomegaly. Extremities: No pedal edema. Skin no rashes. NEUROLOGIC: Alert and oriented x3. No focal deficits. LABS: From today are still pending at the time of this dictation. IMPRESSION: Acute onset of right upper quadrant abdominal pain with elevated LFTs. Ultrasound and CT scan were unremarkable. Hepatitis serologies were negative. At this time it is unclear if we are dealing with acute hepatitis versus CBD stone. MRCP could not be performed as the patient has claustrophobia. RECOMMENDATIONS: If labs are improving today, she can be discharged home and we will make arrangements for her to have an outpatient MRCP and follow up in the office. Thank you for this consultation. NIKAL / JENNIEN: [id number] /
[2018-07-27 11:56] LABS: ALT 180 U/L (9-52); AST 134 U/L (14-36); Albumin 4.1 g/dL (3.5-5.0); Alkaline Phosphatase 270 U/L (38-126); Amylase 70 U/L (30-110); Anion Gap 11 mmol/L; Blood Urea Nitrogen 10 mg/dL (7-17); Calcium 9.8 mg/dL (8.4-10.2); Carbon Dioxide 25 mmol/L (22-30); Chloride 106 mmol/L (98-107); Glucose 105 mg/dL (74-99); Lipase 149 U/L (23-300); Potassium 4.2 mmol/L (3.5-5.1); Sodium 142 mmol/L (137-145); Total Bilirubin 1.3 mg/dL (0.2-1.3); Total Protein 7.5 g/dL (6.3-8.2)
--- NOTE | 2018-07-27 13:34 | P.DS ---
Providers Date of admission: 07/23/18 19:21 Expected date of discharge: 07/27/18 Attending physician: Elier Tuttle Consults: 07/23/18 19:11 Consult Physician Stat Consulting Provider: Shorty Alba Consult Reason/Comments: RUQ pain, hyperbilirubinemia, elevated liver enzymes Do you want consulting provider notified?: Yes, Notify in am Consult Physician Stat Consulting Provider: Bredna Peterson Consult Reason/Comments: RUQ pain, hyperbilirubinemia, elevated liver enzymes Do you want consulting provider notified?: Yes, Notify in am Primary care physician: Guillermina Alvarez [facility] Course: Discharge diagnosis 1. Acute hepatitis with right upper quadrant abdominal pain. Patient has elevated liver enzymes and elevated bilirubin. GI service has evaluated patient concerns for possible autoimmune hepatitis. They've ordered a serological workup and MRCP. Patient will also be evaluated by surgical service. Abdominal ultrasound and computed tomography scan abdomen and pelvis are normal. Hepatitis panel negative from 07/20/2018. Patient denies daily alcohol use. MRCP was ordered for this morning however patient was unable to tolerate to due to anxiety she was evaluated by Dr. Alba, multiple options were given to patient's for management at this time she was started on full liquid diet repeat labs in a.m. Patient will be discharged in order to have open MRCP completed. She'll follow up with GI and surgical service outpatient. She'll continue Ceftin 500 mg twice a day for 1 week to cover for any infection possibly contributing to her acute hepatitis. GI service ordering open MRCP due to acute hepatitis versus common bile duct stone 2. UTI ruled out 3. Leukocytosis: White count has normalized. Possibly related to liver etiology. Hospital course This is a 38-year-old female, patient of Dr. Alvarez. She has no sniffing a past medical history. Patient has been in the ER twice now for this right upper quadrant abdominal pain starting on July 20. At that time she was discharged home and told to follow-up with her PCP. Patient reports that her abdominal pain had started 5 days ago. And on Friday she had severe nausea vomiting and diarrhea. Yesterday she had no further vomiting and diarrhea but continued to have the right upper quadrant abdominal pain. The pain did not radiate. She did not have any worsening factors. Hepatitis panel from July 20 was negative. Abdominal ultrasound normal. Computed tomography scan of the abdomen and pelvis was negative. Patient did have elevated white count of 11.3 on admission total bilirubin of 3.2 AST 158 ALT 340 Alk phos 300. Amylase and lipase are normal. GI and surgical service have been placed on consult. GI service has ordered serological workup and an MRCP. Patient denies daily alcohol use. She reports her last alcoholic beverage was on Friday and she did not drink excessively. Patient denies any fever chills or sweats. Denies any burning with urination. Patient denies taking any tylenol or choleterol meds On 07/25/2018 patient is alert and oriented 3 in no apparent distress, she is still complaining of mild abdominal pain, she is complaining of nausea, she was unable to proceed with MRCP due to anxiety, she was evaluated by Dr. Alba, and at this time she will be started on full liquid diet labs will be repeated tomorrow. On review of system there is no fever or chills no headache no dizziness no chest pain no shortness of breath no cough no vomiting no diarrhea and no urinary symptoms. On 07/26/2018 patient is alert and oriented 3 in no apparent distress she is still complaining of abdominal pain and nausea otherwise no complaints fever or chills no headache or dizziness no chest pain no shortness of breath no cough, and no urinary symptoms. 07/27/2018 patient still complaining of right upper quadrant abdominal pain. She was unable to tolerate her MRCP due to claustrophobia. Both GI and surgical service has cleared patient for discharge to have open MRCP completed as outpatient. Discharge told her bilirubin has normalized at 1.3 AST 134 ALT 180 and alk phos 270. Patient is agreeable to discharge. She'll follow-up with both surgical and GI service as outpatient. I performed an examination of the patient and discussed their management with the physician Fulfillment Representative. I have reviewed the Physician Fulfillment Representative's notes and agree with the documented findings and plan of care Patient Condition at Discharge: Stable Plan - Discharge Summary Discharge Rx Participant: Yes New Discharge Prescriptions: New Cefuroxime Axetil [Ceftin] 500 mg PO BID #14 tab HYDROcodone/APAP 7.5-325MG [[facility] 7.5-325] 1 each PO Q4H PRN #18 tab PRN Reason: Pain Continue Ibuprofen [Motrin Ib] 400 mg PO Q6H PRN PRN Reason: Pain Discharge Medication List Ibuprofen [Motrin Ib] 400 mg PO Q6H PRN 07/23/18 [History] Cefuroxime Axetil [Ceftin] 500 mg PO BID #14 tab 07/27/18 [Rx] HYDROcodone/APAP 7.5-325MG [[facility] 7.5-325] 1 each PO Q4H PRN #18 tab 07/27/18 [ Rx] Follow up Appointment(s)/Referral(s): Shorty Alba MD [Medical Doctor] - 1 Week Guillermina Alvarez MD [Primary Care Provider] - 3 Days Brenda Peterson MD [STAFF PHYSICIAN] - 1 Week Activity/Diet/Wound Care/Special Instructions: Diet: bland diet advanced as tolerated Activity: as tolerated Needs open MRCP as outpatient Discharge Disposition: HOME SELF-CARE
[2018-07-29 12:37] LABS: Liver/Kidney Microsome Antibod 1.2 UNITS (<=20)
[2018-07-29 13:34] LABS: Albumin 3.26 g/dL (3.80-4.90); Gamma Globulin 0.97 g/dL (0.70-1.50)
== END 2018-07-27 15:01 | disposition home or self-care (01) | DRG 443 ==
LOC: EC 15:25 → 4MS4W 19:21
PROVIDERS: ADMIT Internal Medicine; ATTEND Internal Medicine
DX: B17.9 Acute viral hepatitis, unspecified (principal); F40.240 Claustrophobia; R51 Headache; Z53.9 Procedure and treatment not carried out, unspecified reason; Z98.891 History of uterine scar from previous surgery; Z90.49 Acquired absence of other specified parts of digestive tract; Z88.0 Allergy status to penicillin; Z83.3 Family history of diabetes mellitus
CPT/HCPCS: 36415; 74177; 76705; 80053; 81001; 82103; 82150; 82248; 82390; 82728; 83516; 83540; 83550; 83690; 84165; 84484; 85025; 86038; 86376; 86644; 86645; 86663; 86664; 86665; 87086; 96361; 96374; 99285

== ENCOUNTER → 2018-08-12 | Outpatient (CLI) | payer OTHER ==
[2018-08-12 21:18] LABS: Albumin 4.2 g/dL (3.80-4.90); Albumin/Globulin Ratio 1.91 (1.20-2.10); Bilirubin, Conjugated 0.2 mg/dL (0.20-0.40); Bilirubin,Unconjugated 0.1 mg/dL; Globulin 2.2 g/dL (1.6-3.3); Total Bilirubin 0.3 mg/dL (0.2-1.2); Total Protein 6.4 g/dL (6.2-8.2)
== END | disposition home or self-care (01) ==
LOC: LABWHC1 14:21
DX: R74.8 Abnormal levels of other serum enzymes (principal)
CPT/HCPCS: 36415; 80076; 86038

== ENCOUNTER → 2018-09-02 | Outpatient (CLI) | payer OTHER ==
--- NOTE | 2018-09-04 11:56 | MM ---
Reason for exam: screening (asymptomatic). Baseline mammogram. Physical Findings: Nurse did not find any significant physical abnormalities on exam. MG Screening Mammo w CAD Bilateral CC and MLO view(s) were taken. There are scattered fibroglandular densities. On the left, medial and lateral focal asymmetries at a middle depth. There is no discrete abnormality on the right. These results were verbally communicated with the patient and result sheet given to the patient on 09/02/18. ASSESSMENT: Incomplete: need additional imaging evaluation, BI-RAD 0 RECOMMENDATION: Special view mammogram of the left breast. If lesion persists on supplemental views, image directed ultrasound is recommended. [facility] will attempt to contact patient to return for supplemental views and ultrasound if indicated.
--- NOTE | 2018-09-04 11:58 | MM ---
Reason for exam: additional evaluation requested from abnormal screening. Physical Findings: Breast exam preformed at baseline screening. MG Work Up Mamm w CAD LT Spot compression CC, spot compression MLO, and ML view(s) were taken of the left breast. There are scattered fibroglandular densities. Focal asymmetry persists upper outer quadrant and 9 o'clock. Ultrasound recommended. These results were verbally communicated with the patient and result sheet given to the patient on 09/02/18. ASSESSMENT: Incomplete: need additional imaging evaluation, BI-RAD 0 RECOMMENDATION: Ultrasound of the left breast. upper outer quadrant and 9 o'clock
--- NOTE | 2018-09-04 12:00 | USB ---
Reason for exam: additional evaluation requested from abnormal screening. US Breast Workup Limited LT Left limited breast ultrasound including focal area of concern, retroareolar and axilla demonstrates a 0.7 x 0.6 x 0.7cm mixed lesion at 9 o'clock. A benign etiology is suspected. This corresponds to the mammographic finding. 6 month follow up recommended. No sonographic correlate for the upper outer quadrant nodularity, probably intramammary node, 6 month follow up recommended. Scanned 9 o'clock to 3 o'clock. These results were verbally communicated with the patient and result sheet given to the patient on 09/02/18. ASSESSMENT: Probably benign, BI-RAD 3 RECOMMENDATION: Follow-up diagnostic mammogram and ultrasound of the left breast in 6 months. (9-3 o'clock)
== END | disposition home or self-care (01) ==
LOC: RADMAMWWP 14:31
PROVIDERS: ATTEND Family Medicine
DX: R92.8 Other abnormal and inconclusive findings on diagnostic imaging of breast (principal)
CPT/HCPCS: 77065; 77067

== ENCOUNTER 2018-10-05 05:49 | Emergency (ER) | payer OTHER ==
[2018-10-05 06:10] VITALS: BP 115/71; PULSE 75; RESP 16; TEMP 97.9
[2018-10-05] MEDS ORDERED: SODIUM CHLORIDE 0.9% 1,000 ML IV ONE (06:29)
--- NOTE | 2018-10-05 06:40 | ED ---
Neuro HPI - General Chief Complaint: Neuro Symptoms/Deficit Stated Complaint: Numbness arms bilateral Source: patient Mode of arrival: ambulatory Limitations: no limitations - History of Present Illness Is the patient presenting with stroke symptoms?: No Initial Comments: Madhavi is a relatively healthy 38-year-old female who presents to the emergency department today for evaluation of numbness of her right hand. Patient reports she was in her usual state of health yesterday when she went to bed. She reports when she woke this morning she fell she had numbness in the total ring and pinky finger of her right hand. Patient reports this made her very nervous, she states that she thought if she got up and took a shower and began her day the numbness would go away however the numbness and tingling sensation persisted throughout her shower. She then began to feel somewhat lightheaded and felt like both of her hands were tingling at which time she decided to come to the emergency department for further evaluation. Patient has no cardiac history no history of vascular disease no history of inflammatory disease she has no history of DVTs or PEs or hypercoagulability, she has no family history of early strokes. She denies any headache, vision changes, trouble with speech or swallowing she denies any weakness in the arm or trouble with walking. - Related Data Home Medications: Home Medications Medication Instructions Recorded Confirmed Ibuprofen [Motrin Ib] 400 mg PO Q6H PRN 07/23/18 07/23/18 Allergies/Adverse Reactions: Allergies Allergy/AdvReac Type Severity Reaction Status Date / Time Penicillins Allergy Rash/Hives Verified 10/05/18 06:52 Review of Systems ROS Statement: Those systems with pertinent positive or pertinent negative responses have been documented in the HPI. ROS Other: All systems not noted in ROS Statement are negative. General Exam - General Exam Comments Initial Comments: GENERAL: Patient is well-developed and well-nourished. Patient is nontoxic and well-hydrated and is in no distress. HENT: Normocephalic, Atraumatic. Neck is soft and supple. No significant lymphadenopathy is noted. Oropharynx is clear. Moist mucous membranes. Neck has full range of motion without eliciting any pain. EYES: The sclera were anicteric and conjunctiva were pink and moist. Extraocular movements were intact and pupils were equal round and reactive to light. Eyelids were unremarkable. PULMONARY: Unlabored respirations. CARDIOVASCULAR: There is a regular rate and rhythm without any murmurs gallops or rubs. ABDOMEN: Soft and nontender with normal bowel sounds. SKIN: Skin is clear with no lesions or rashes and otherwise unremarkable. NEUROLOGIC: Patient is alert and oriented x3. Cranial nerves II through XII are grossly intact. Motor and sensory are also intact. Normal speech, volume and content. Symmetrical smile. Patient has paresthesias in the ulnar nerve distribution consistent with ulnar tunnel. MUSCULOSKELETAL: Normal extremities with adequate strength and full range of motion. No lower extremity swelling or edema. No calf tenderness. LYMPHATICS: No significant lymphadenopathy is noted PSYCHIATRIC: Normal psychiatric evaluation. Limitations: no limitations Limitations: no limitations Stroke MDM - Lab Data Result diagrams: 10/05/18 06:30 10/05/18 06:35 Lab Results 10/05/18 10/05/18 Range/Units 06:30 06:35 WBC 9.2 (3.8-10.6) k/uL RBC 4.73 (3.80-5.40) m/uL Hgb 11.7 (11.4-16.0) gm/dL Hct 37.2 (34.0-46.0) % MCV 78.7 L (80.0-100.0) fL MCH 24.8 L (25.0-35.0) pg MCHC 31.6 (31.0-37.0) g/dL RDW 14.4 (11.5-15.5) % Plt Count 352 (150-450) k/uL Neutrophils % 60 % Lymphocytes % 29 % Monocytes % 5 % Eosinophils % 3 % Basophils % 1 % Neutrophils # 5.5 (1.3-7.7) k/uL Lymphocytes # 2.7 (1.0-4.8) k/uL Monocytes # 0.5 (0-1.0) k/uL Eosinophils # 0.2 (0-0.7) k/uL Basophils # 0.0 (0-0.2) k/uL Sodium 139 (137-145) mmol/L Potassium 4.1 (3.5-5.1) mmol/L Chloride 108 H (98-107) mmol/L Carbon Dioxide 26 (22-30) mmol/L Anion Gap 5 mmol/L BUN 18 H (7-17) mg/dL Creatinine 0.72 (0.52-1.04) mg/dL Est GFR (CKD-EPI)AfAm >90 (>60 ml/min/1.73 sqM) Est GFR (CKD-EPI)NonAf >90 (>60 ml/min/1.73 sqM) Glucose 105 H (74-99) mg/dL Calcium 9.1 (8.4-10.2) mg/dL Magnesium 1.8 (1.6-2.3) mg/dL - NIH Stroke Scale 1a. Level of Consciousness: (0) alert 1b. LOC Questions: (0) answers correctly 1c. LOC Commands: (0) performs tasks correctly 2. Best Gaze: (0) normal 3. Visual: (0) no visual loss 4. Facial Palsy: (0) normal symmetrical movement 5a. Motor Arm Left: (0) no drift 5b. Motor Arm Right: (0) no drift 6a. Motor Leg Left: (0) no drift 6b. Motor Leg Right: (0) no drift 7. Limb Ataxia: (0) absent 8. Sensory: (0) normal 9. Best Language: (0) no aphasia 10. Dysarthria: (0) normal 11. Extinction/Inattention: (0) no abnormality - Medical Decision Making Patient was seen and evaluated history was obtained from the patient and signed patient presented with right hand numbness she noted when she woke this morning she reports she then became very anxious took a shower and both her hands became very numb and tingly and her legs felt weak so she decided come to the ER for evaluation Physical exam is concerning for a Holter tunnel syndrome of the right hand, patient is otherwise neurologically intact no risk factors for stroke Labs were unremarkable Thoughts were discussed with patient who expresses relief All questions pertaining to care were answered the best my ability return parameters were discussed with patient was discharged home in stable condition Past Medical History Past Medical History: No Reported History History of Any Multi-Drug Resistant Organisms: None Reported Past Surgical History: Appendectomy, Section Past Anesthesia/Blood Transfusion Reactions: No Reported Reaction Additional Past Anesthesia/Blood Transfusion Reaction / Comment(s): CLAUSTERPHOBIA Past Psychological History: No Psychological Hx Reported Smoking Status: Never smoker Past Alcohol Use History: None Reported Past Drug Use History: None Reported - Past Family History Mother Family Medical History: Diabetes Mellitus Father Family Medical History: No Reported History Course Vital Signs 10/05/18 06:07 Temperature 97.9 F Pulse Rate 75 Respiratory 16 Rate Blood Pressure 115/71 O2 Sat by Pulse 98 Oximetry Disposition Clinical Impression: Ulnar tunnel syndrome of right wrist Disposition: HOME SELF-CARE Condition: Good Instructions (If sedation given, give patient instructions): Cubital Tunnel Syndrome (ED), Paresthesia (ED) Is patient prescribed a controlled substance at d/c from ED?: No Referrals: Guillermina Alvarez MD [Primary Care Provider] - 1-2 days
[2018-10-05 06:47] LABS: Basophils % (A) 1 %; Eosinophils # (A) 0.2 k/uL (0-0.7); Eosinophils % (A) 3 %; HCT 37.2 % (34.0-46.0); HGB 11.7 gm/dL (11.4-16.0); Lymphocytes # (A) 2.7 k/uL (1.0-4.8); Lymphocytes % (A) 29 %; MCH 24.8 pg (25.0-35.0); MCHC 31.6 g/dL (31.0-37.0); MCV 78.7 fL (80.0-100.0); Mean Platelet Volume 7.2; Monocytes # (A) 0.5 k/uL (0-1.0); Monocytes % (A) 5 %; Neutrophils # (A) 5.5 k/uL (1.3-7.7); Neutrophils % (A) 60 %; Platelet Count 352 k/uL (150-450); RBC 4.73 m/uL (3.80-5.40); RDW 14.4 % (11.5-15.5); WBC 9.2 k/uL (3.8-10.6)
[2018-10-05 06:59] LABS: Anion Gap 5 mmol/L; Blood Urea Nitrogen 18 mg/dL (7-17); Calcium 9.1 mg/dL (8.4-10.2); Carbon Dioxide 26 mmol/L (22-30); Chloride 108 mmol/L (98-107); Glucose 105 mg/dL (74-99); Magnesium 1.8 mg/dL (1.6-2.3); Potassium 4.1 mmol/L (3.5-5.1); Sodium 139 mmol/L (137-145)
== END 2018-10-05 07:28 | disposition home or self-care (01) ==
LOC: EC 05:49
DX: G56.21 Lesion of ulnar nerve, right upper limb (principal); Z88.0 Allergy status to penicillin
CPT/HCPCS: 36415; 80048; 83735; 85025; 96360; 99284

== ENCOUNTER 2018-11-29 14:17 | Emergency (ER) | payer OTHER ==
[2018-11-29 14:38] VITALS: BP 119/80; PULSE 88; RESP 16; TEMP 98.3
[2018-11-29] MEDS ORDERED: LIDOCAINE 1% INJ 10MG/ML (20 ML MDV) SQ ONE (14:56)
--- NOTE | 2018-11-29 15:26 | ED ---
General Adult HPI - General Chief complaint: Urogenital Stated complaint: female Time Seen by Provider: 11/29/18 14:39 Source: patient, RN notes reviewed Mode of arrival: ambulatory Limitations: no limitations - History of Present Illness Initial comments: 38-year-old female presents to the emergency department for a chief complaint of swelling of the labia 3 days. Patient states she has had this before and it has had to be drained. Patient states it is painful to sit on. Patient denies any fevers or chills. Patient denies any dysuria. No difficulty urinating. Patient does admit to mild vaginal discharge with this.Patient has no other complaints at this time including shortness of breath, chest pain, abdominal pain, nausea or vomiting, headache, or visual changes. - Related Data Home Medications Medication Instructions Recorded Confirmed Ibuprofen [Motrin Ib] 400 mg PO Q6H PRN 07/23/18 10/05/18 Previous Rx's Medication Instructions Recorded Sulfamethox-Tmp 800-160Mg [Bactrim 1 tab PO Q12HR #20 tab 10/26/18 DS 800-160 mg] Sulfamethox-Tmp 800-160Mg [Bactrim 1 tab PO Q12HR #20 tab 11/29/18 DS 800-160 mg] Allergies Allergy/AdvReac Type Severity Reaction Status Date / Time Penicillins Allergy Rash/Hives Verified 11/29/18 14:38 Review of Systems ROS Statement: Those systems with pertinent positive or pertinent negative responses have been documented in the HPI. ROS Other: All systems not noted in ROS Statement are negative. Past Medical History Past Medical History: No Reported History History of Any Multi-Drug Resistant Organisms: None Reported Past Surgical History: Appendectomy, Section Past Anesthesia/Blood Transfusion Reactions: No Reported Reaction Additional Past Anesthesia/Blood Transfusion Reaction / Comment(s): CLAUSTERPHOBIA Past Psychological History: No Psychological Hx Reported Smoking Status: Never smoker Past Alcohol Use History: Occasional Past Drug Use History: None Reported - Past Family History Mother Family Medical History: Diabetes Mellitus Father Family Medical History: No Reported History General Exam Limitations: no limitations General appearance: alert, in no apparent distress Head exam: Present: atraumatic, normocephalic, normal inspection Eye exam: Present: normal appearance, PERRL. Absent: scleral icterus, conjunctival injection ENT exam: Present: normal exam, mucous membranes moist Neck exam: Present: normal inspection, full ROM. Absent: tenderness, meningismus, lymphadenopathy Respiratory exam: Present: normal lung sounds bilaterally. Absent: respiratory distress, wheezes, rales, rhonchi, stridor Cardiovascular Exam: Present: regular rate, normal rhythm, normal heart sounds. Absent: systolic murmur, diastolic murmur, rubs, gallop, clicks External exam: Present: swelling (Patient has a 2 cm x 2 cm Bartholin's cyst noted on the left vaginal os). Absent: normal external exam, erythema, lesions, lacerations, ecchymosis Course Vital Signs 11/29/18 14:35 Temperature 98.3 F Pulse Rate 88 Respiratory 16 Rate Blood Pressure 119/80 O2 Sat by Pulse 99 Oximetry Procedures - Incision & Drainage Consent Obtained: verbal consent Indication: bartholins Site: vulva/vagina Size (cm): 2 Anesthetic Used: lidocaine 1% Amount (mLs): 2 I&D Cleaning Method: Betadine Sterile Field Used?: Yes Scalpel Used: #11 I&D Drainage Obtained: Pus, Blood Patient Tolerated Procedure: well, no complications Medical Decision Making - Medical Decision Making 38-year-old female presents to the emergency department for a chief complaint of cyst. Patient has had this before. This has been ongoing for 3 days. On exam patient is a 2 cm x 2 cm left Bartholin's gland cyst. I did incise this with 11 blade. However only minimal purulent material was expelled. Cyst is likely not walled off yet. Patient is ALLERGIC to penicillin so was put on Bactrim. I discussed following up with [facility]X OPERATOR. I also discussed monitoring and assuming the not improving over the next 2 days to return here to the emergency department to repeat incision and drainage Disposition Clinical Impression: Cyst of Bartholin's gland duct Disposition: HOME SELF-CARE Condition: Good Instructions (If sedation given, give patient instructions): Bartholin Cyst (ED), Incision and Drainage (ED) Additional Instructions: Please follow up with TWX OPERATOR in one to 2 days. Take antibiotic as directed. Apply warm compresses if possible. If symptoms are worsening instead of improving return here to the emergency department. Prescriptions: Sulfamethox-Tmp 800-160Mg [Bactrim DS 800-160 mg] 1 tab PO Q12HR #20 tab Is patient prescribed a controlled substance at d/c from ED?: No Referrals: Guillermina Alvarez MD [Primary Care Provider] - 1-2 days Enedina Smith DO [Doctor of Osteopathic Medicine] - 1-2 days Time of Disposition: 15:25
== END 2018-11-29 15:43 | disposition home or self-care (01) ==
LOC: EC 14:17
DX: N75.0 Cyst of Bartholin's gland (principal); Z88.0 Allergy status to penicillin
CPT/HCPCS: 99283; 56420; J2001

== ENCOUNTER → 2018-12-01 | Outpatient (CLI) | payer OTHER ==
--- NOTE | 2018-12-01 15:26 | CT ---
EXAMINATION TYPE: CT chest w con DATE OF EXAM: 12/01/2018 COMPARISON: 03/13/2011 HISTORY: 38-year-old female Pulmonary nodule. TECHNIQUE: Contiguous axial scanning of the chest after the administration of 100 mL of Isovue M300. Coronal/sagittal reconstructions performed. CT DLP: 364.2mGycm. Automatic exposure control utilized for a dose reduction. FINDINGS: Heart upper limits of normal in size without pericardial effusion. Aorta normal caliber with variant direct takeoff of the left vertebral artery directly from the arch. There is prominent motion artifact. No definite thoracic lymphadenopathy. Mild diffuse bronchial wall thickening. Some scattered hazy densities likely related to generalized a telectasis. 1.4 cm round, partially calcified left upper lobe pulmonary nodule previously measured 1.3 x 0.6 cm. 5 mm right infrahilar pulmonary nodule, axial image 28. No consolidation or pleural effusion. Visualized upper abdomen shows a calcified granuloma within the spleen. Bones: No osseous destructive process. IMPRESSION: 1. A 1.4 cm round pulmonary nodule in the left upper lobe previously measured 1.3 x 0.6 cm. Despite t he growth, presence of internal calcifications suggests a calcified granuloma. A precautionary 6-12 month follow-up is recommended to reassess. 2. A 5 mm right infrahilar pulmonary nodule should also be reassessed at that time. 3. Mild diffuse bronchial wall thickening. Correlate for bronchitis or asthma. Hazy densities likely represent generalized areas of atelectasis.
== END ==
LOC: RADCTMAIN 11:48
PROVIDERS: ATTEND Family Medicine
DX: R91.1 Solitary pulmonary nodule (principal)
CPT/HCPCS: 71260

== ENCOUNTER 2019-04-03 13:20 | Emergency (ER) | payer OTHER ==
[2019-04-03] MEDS ORDERED: KETOROLAC 30 MG/ML 1 ML VIAL IVP STA (13:55)
[2019-04-03] MEDS ORDERED: SODIUM CHLORIDE 0.9% 1,000 ML IV STA (13:55)
[2019-04-03 14:26] LABS: Basophils # (A) 0.1 k/uL (0-0.2); Basophils % (A) 0 %; Eosinophils # (A) 0.2 k/uL (0-0.7); Eosinophils % (A) 2 %; HCT 37.9 % (34.0-46.0); HGB 12.3 gm/dL (11.4-16.0); Lymphocytes # (A) 2.8 k/uL (1.0-4.8); Lymphocytes % (A) 23 %; MCH 25.6 pg (25.0-35.0); MCHC 32.5 g/dL (31.0-37.0); MCV 78.8 fL (80.0-100.0); Mean Platelet Volume 8.8; Monocytes # (A) 0.6 k/uL (0-1.0); Monocytes % (A) 5 %; Neutrophils # (A) 8.3 k/uL (1.3-7.7); Neutrophils % (A) 68 %; Platelet Count 359 k/uL (150-450); RDW 15.3 % (11.5-15.5); WBC 12.1 k/uL (3.8-10.6)
--- NOTE | 2019-04-03 14:35 | ED ---
Abdominal Pain HPI - General Chief Complaint: Abdominal Pain Stated Complaint: Abd pain Time Seen by Provider: 04/03/19 13:34 Source: patient Mode of arrival: ambulatory Limitations: no limitations - History of Present Illness Initial Comments: Patient is a 38-year-old female presenting to emergency Department with complaints of low left-sided abdominal pain since yesterday. Patient states the pain started gradually yesterday afternoon and has progressed in intensity. Patient describes the pain as sharp and constant. Patient denies any radiation at this time. Patient states laying down helps alleviate the pain but any trunk movement or standing and walking aggravates the pain. Patient denies any fevers, chills, nausea, vomiting, diarrhea, urinary symptoms, or vaginal discharge. Patient denies history of kidney stones. Patient does admit to history of ovarian cyst. Patient admits to cholecystectomy and one . Patient has no other complaints at this time. Upon arrival to ER, vital signs stable, afebrile. - Related Data Home Medications Medication Instructions Recorded Confirmed Ibuprofen [Motrin Ib] 400 mg PO Q6H PRN 07/23/18 10/05/18 Previous Rx's Medication Instructions Recorded Sulfamethox-Tmp 800-160Mg [Bactrim 1 tab PO Q12HR #20 tab 10/26/18 DS 800-160 mg] Sulfamethox-Tmp 800-160Mg [Bactrim 1 tab PO Q12HR #20 tab 11/29/18 DS 800-160 mg] Ciprofloxacin HCl [Cipro] 500 mg PO BID 7 Days #14 tab 04/03/19 metroNIDAZOLE [Flagyl] 500 mg PO TID 7 Days #21 tab 04/03/19 Allergies Allergy/AdvReac Type Severity Reaction Status Date / Time Penicillins Allergy Rash/Hives Verified 04/03/19 13:26 Review of Systems ROS Statement: Those systems with pertinent positive or pertinent negative responses have been documented in the HPI. ROS Other: All systems not noted in ROS Statement are negative. Past Medical History Past Medical History: No Reported History History of Any Multi-Drug Resistant Organisms: None Reported Past Surgical History: Appendectomy, Section Past Anesthesia/Blood Transfusion Reactions: No Reported Reaction Additional Past Anesthesia/Blood Transfusion Reaction / Comment(s): CLAUSTERPHOBIA Past Psychological History: No Psychological Hx Reported Smoking Status: Never smoker Past Alcohol Use History: Occasional Past Drug Use History: None Reported - Past Family History Mother Family Medical History: Diabetes Mellitus Father Family Medical History: No Reported History General Exam - General Exam Comments Initial Comments: GENERAL: Well-appearing, well-nourished and in no acute distress. HEAD: Atraumatic, normocephalic. EYES: Pupils equal round and reactive to light, extraocular movements intact, sclera anicteric, conjunctiva are normal. ENT: TMs normal, nares patent, oropharynx clear without exudates. Moist mucous membranes. NECK: Normal range of motion, supple without lymphadenopathy or JVD. LUNGS: Breath sounds clear to auscultation bilaterally and equal. No wheezes rales or rhonchi. HEART: Regular rate and rhythm without murmurs, rubs or gallops. ABDOMEN: Tender to palpation in the suprapubic area and left lower quadrant. Soft, normoactive bowel sounds. No rebound. No masses appreciated. : Deferred EXTREMITIES: Normal range of motion, no pitting or edema. No clubbing or cyanosis. NEUROLOGICAL: Cranial nerves II through XII grossly intact. Normal speech, normal gait. PSYCH: Normal mood, normal affect. SKIN: Warm, Dry, normal turgor, no rashes or lesions noted. Limitations: no limitations Course Vital Signs 04/03/19 04/03/19 04/03/19 13:24 18:28 18:58 Temperature 98.2 F 98 F Pulse Rate 82 70 72 Respiratory 16 18 18 Rate Blood Pressure 108/70 105/62 110/78 O2 Sat by Pulse 95 99 98 Oximetry Medical Decision Making - Medical Decision Making She is a 38-year-old female presenting with left lower quadrant and suprapubic pain times one day. Patient denies fever, chills, nausea, vomiting, diarrhea, chest pain. Vital signs were stable upon arrival, afebrile. On exam patient has tenderness suprapubic and left lower quadrant. CBC showed slight leukocytosis at 12.1. CMP was normal. UA is normal. Urine hCG not detected. Ultrasound showed changes associated with a small fibroid. Neither ovary could be visualized. CT of the abdomen was then obtained and showed inflammation centered at the junction of the descending colon and proximal sigmoid colon that is suspicious for diverticulitis. Vital signs have remained stable. Afebrile. Patient is stable to be treated at home. Patient will be started on Flagyl and Cipro. Patient is in agreement with this plan of care. Case is discussed with Dr. Krause. Return parameters were discussed with the patient she verbalized understanding. - Lab Data Result diagrams: 04/03/19 14:10 04/03/19 14:10 Lab Results 04/03/19 04/03/19 04/03/19 Range/Units 14:10 14:10 14:10 WBC 12.1 H (3.8-10.6) k/uL RBC 4.80 (3.80-5.40) m/uL Hgb 12.3 (11.4-16.0) gm/dL Hct 37.9 (34.0-46.0) % MCV 78.8 L (80.0-100.0) fL MCH 25.6 (25.0-35.0) pg MCHC 32.5 (31.0-37.0) g/dL RDW 15.3 (11.5-15.5) % Plt Count 359 (150-450) k/uL Neutrophils % 68 % Lymphocytes % 23 % Monocytes % 5 % Eosinophils % 2 % Basophils % 0 % Neutrophils # 8.3 H (1.3-7.7) k/uL Lymphocytes # 2.8 (1.0-4.8) k/uL Monocytes # 0.6 (0-1.0) k/uL Eosinophils # 0.2 (0-0.7) k/uL Basophils # 0.1 (0-0.2) k/uL Sodium 139 (137-145) mmol/L Potassium 3.9 (3.5-5.1) mmol/L Chloride 103 (98-107) mmol/L Carbon Dioxide 25 (22-30) mmol/L Anion Gap 11 mmol/L BUN 21 H (7-17) mg/dL Creatinine 0.76 (0.52-1.04) mg/dL Est GFR (CKD-EPI)AfAm >90 (>60 ml/min/1.73 sqM) Est GFR (CKD-EPI)NonAf >90 (>60 ml/min/1.73 sqM) Glucose 92 (74-99) mg/dL Calcium 9.4 (8.4-10.2) mg/dL Total Bilirubin 0.3 (0.2-1.3) mg/dL AST 20 (14-36) U/L ALT 13 (9-52) U/L Alkaline Phosphatase 82 (38-126) U/L Total Protein 7.9 (6.3-8.2) g/dL Albumin 4.4 (3.5-5.0) g/dL Amylase 78 (30-110) U/L Lipase 112 (23-300) U/L Urine Color Urine Appearance (Clear) Urine pH (5.0-8.0) Ur Specific [place] (1.001-1.035) Urine Protein (Negative) Urine Glucose (UA) (Negative) Urine Ketones (Negative) Urine Blood (Negative) Urine Nitrite (Negative) Urine Bilirubin (Negative) Urine Urobilinogen (<2.0) mg/dL Ur Leukocyte Esterase (Negative) Urine RBC (0-5) /hpf Urine WBC (0-5) /hpf Ur Squamous Epith Cells (0-4) /hpf Urine Mucus (None) /hpf Urine HCG, Qual Not Detected (Not Detectd) 04/03/19 Range/Units 14:10 WBC (3.8-10.6) k/uL RBC (3.80-5.40) m/uL Hgb (11.4-16.0) gm/dL Hct (34.0-46.0) % MCV (80.0-100.0) fL MCH (25.0-35.0) pg MCHC (31.0-37.0) g/dL RDW (11.5-15.5) % Plt Count (150-450) k/uL Neutrophils % % Lymphocytes % % Monocytes % % Eosinophils % % Basophils % % Neutrophils # (1.3-7.7) k/uL Lymphocytes # (1.0-4.8) k/uL Monocytes # (0-1.0) k/uL Eosinophils # (0-0.7) k/uL Basophils # (0-0.2) k/uL Sodium (137-145) mmol/L Potassium (3.5-5.1) mmol/L Chloride (98-107) mmol/L Carbon Dioxide (22-30) mmol/L Anion Gap mmol/L BUN (7-17) mg/dL Creatinine (0.52-1.04) mg/dL Est GFR (CKD-EPI)AfAm (>60 ml/min/1.73 sqM) Est GFR (CKD-EPI)NonAf (>60 ml/min/1.73 sqM) Glucose (74-99) mg/dL Calcium (8.4-10.2) mg/dL Total Bilirubin (0.2-1.3) mg/dL AST (14-36) U/L ALT (9-52) U/L Alkaline Phosphatase (38-126) U/L Total Protein (6.3-8.2) g/dL Albumin (3.5-5.0) g/dL Amylase (30-110) U/L Lipase (23-300) U/L Urine Color Light Yellow Urine Appearance Clear (Clear) Urine pH 6.5 (5.0-8.0) Ur Specific [place] 1.012 (1.001-1.035) Urine Protein Negative (Negative) Urine Glucose (UA) Negative (Negative) Urine Ketones Negative (Negative) Urine Blood Small H (Negative) Urine Nitrite Negative (Negative) Urine Bilirubin Negative (Negative) Urine Urobilinogen <2.0 (<2.0) mg/dL Ur Leukocyte Esterase Small H (Negative) Urine RBC 2 (0-5) /hpf Urine WBC 2 (0-5) /hpf Ur Squamous Epith Cells 7 H (0-4) /hpf Urine Mucus Rare H (None) /hpf Urine HCG, Qual (Not Detectd) Disposition Clinical Impression: Diverticulitis, Abdominal pain Disposition: HOME SELF-CARE Condition: Stable Instructions (If sedation given, give patient instructions): Diverticulitis (ED) Additional Instructions: Please return to the Emergency Department if symptoms worsen or any other concerns. Take both antibiotics as prescribed. (Look on the [facility]: Good RX for prices on rx costs) Prescriptions: Ciprofloxacin HCl [Cipro] 500 mg PO BID 7 Days #14 tab metroNIDAZOLE [Flagyl] 500 mg PO TID 7 Days #21 tab Is patient prescribed a controlled substance at d/c from ED?: No Referrals: Guillermina Alvarez MD [Primary Care Provider] - 1-2 days
[2019-04-03 14:39] LABS: ALT 13 U/L (9-52); AST 20 U/L (14-36); African American GFR (CKD) >90 (>60 ml/min/1.73 sqM); Albumin 4.4 g/dL (3.5-5.0); Alkaline Phosphatase 82 U/L (38-126); Amylase 78 U/L (30-110); Anion Gap 11 mmol/L; Blood Urea Nitrogen 21 mg/dL (7-17); Calcium 9.4 mg/dL (8.4-10.2); Carbon Dioxide 25 mmol/L (22-30); Chloride 103 mmol/L (98-107); Glucose 92 mg/dL (74-99); Potassium 3.9 mmol/L (3.5-5.1); Sodium 139 mmol/L (137-145); Total Bilirubin 0.3 mg/dL (0.2-1.3); Total Protein 7.9 g/dL (6.3-8.2)
[2019-04-03 14:45] LABS: Appearance,Urine Clear (Clear); Bilirubin,Urine Negative (Negative); Blood,Urine Small (Negative); Color,Urine Light Yellow; Glucose,Urine (UA) Negative (Negative); Ketones,Urine Negative (Negative); Leukocyte Esterase,Urine Small (Negative); Mucus,Urine Rare /hpf; Nitrite,Urine Negative (Negative); PH, Urine 6.5 (5.0-8.0); Protein,Urine Negative (Negative); RBC,Urine 2 /hpf (0-5); Specific Gravity,Urine 1.012 (1.001-1.035); Squamous Epithelial Cell,Urine 7 /hpf (0-4); Urobilinogen,Urine <2.0 mg/dL (<2.0)
--- NOTE | 2019-04-03 16:03 | US ---
EXAMINATION TYPE: US transvaginal DATE OF EXAM: 04/03/2019 COMPARISON: US 2017 CLINICAL HISTORY: 38-year-old female Pain. Left pelvic pain x couple days, history and tuba l ligation TECHNIQUE: Transvaginal ER exam. Date of LMP: 03/14/2019 FINDINGS: Life Support Technician notes:Difficult and limited study due to patient body habitus and overlying bowel gas 1. Uterus: anteverted measuring 8.9 x 3.7 x 5.4 cm, visualized portions appear heterogeneous, limite d by overlying bowel gas 2. Endometrium: 1.3 cm, upper limits of normal. 3. Right Ovary: not seen due to overlying bowel gas 4. Left Ovary: not seen due to overlying bowel gas 5. Bilateral Adnexa: wnl 6. Posterior cul-de-sac: small amount of free fluid IMPRESSION: 1. Endometrial stripe upper limits of normal at 1.3 cm. 2. Heterogeneous myometrium may reflect diffuse small fibroid change or adenomyosis. 3. Neither ovary could be visualized due to bowel gas. 4. Small amount of cul-de-sac free fluid likely physiologic.
[2019-04-03 18:29] VITALS: RESP 18
[2019-04-03] MEDS ORDERED: metroNIDAZOLE 500 MG TAB PO STA (18:32)
[2019-04-03] MEDS ORDERED: CIPROFLOXACIN HCL 500 MG TAB PO STA (18:32)
[2019-04-03 18:59] VITALS: BP 110/78; PULSE 72; TEMP 98
--- NOTE | 2019-04-03 21:51 | CT ---
EXAMINATION TYPE: CT abdomen pelvis w con DATE OF EXAM: 04/03/2019 COMPARISON: CT abdomen and pelvis 10/25/2018 HISTORY: LLQ pain CT DLP: 1948.6 mGycm Automated exposure control for dose reduction was used. TECHNIQUE: Helical acquisition of images was performed from the lung bases through the pelvis. CONTRAST: Performed without Oral Contrast and with IV Contrast, patient injected with 100 mL of Isovue 300. FINDINGS: Study is limited by patient motion, notably at the level of the pancreas. Lung bases are clear. Liver is without focal lesion. No calcified gallstones. No intra or extrahepatic biliary ductal dilat ation. The previously stated limitations, the liver is without focal lesion. No calcified gallstones. No int ra or extrahepatic biliary ductal dilatation. The liver, spleen, and adrenal glands are within normal limits. Renal cortical thinning/scar of the inferior pole left kidney. Symmetric enhancement without hydronep hrosis. Anteverted uterus. Tubal occlusion clips. No adnexal mass. Small volume free fluid, not an unexpected finding in a patient of this age. No dilated bowel or free air. There is subtle pericolonic mesenteric reticulation at the junction of the distal descending and proximal sigmoid colon (series 201 images 65-63). No focal fluid collection . Normal course and caliber of the aorta. No suspicious adenopathy. Small fat filled umbilical hernia. No osseous destructive lesion. IMPRESSION: Subtle pericolonic inflammation centered at the junction of the descending colon and proximal sigmoid colon suspicious for diverticulitis. No free air or abscess.
== END 2019-04-03 18:55 | disposition home or self-care (01) ==
LOC: EC 13:20
DX: K57.32 Diverticulitis of large intestine without perforation or abscess without bleeding (principal); D25.9 Leiomyoma of uterus, unspecified; Z88.0 Allergy status to penicillin; Z87.42 Personal history of other diseases of the female genital tract; Z90.49 Acquired absence of other specified parts of digestive tract
CPT/HCPCS: 99284; 96374; 96361; 36415; 80053; 82150; 83690; 85025; 81001; 81025; 76830; 74177; J1885; Q9967

== ENCOUNTER → 2019-05-04 | Outpatient (CLI) | payer OTHER ==
--- NOTE | 2019-05-04 14:23 | CT ---
EXAMINATION TYPE: CT chest w con DATE OF EXAM: 05/04/2019 COMPARISON: 12/01/2018 HISTORY: follow up to abn lung findings CT DLP: 522 mGycm Automated exposure control for dose reduction was used. CONTRAST: CT scan of the chest is performed with IV Contrast, patient injected with 100 mL of Isovue 300. FINDINGS: LUNGS: 14 mm partially calcified nodule left upper lobe is unchanged. Previously noted 5 mm right inf rahilar nodule is not identified at this time. No new nodules identified. No infiltrate and volume lo ss or pleural effusion. MEDIASTINUM: There are no greater than 1 cm hilar or mediastinal lymph nodes. No pericardial effusi on is seen. Thoracic aorta is of normal caliber. The heart is not enlarged. UPPER ABDOMEN: No significant abnormality appreciated. OTHER: No additional significant abnormality is seen. IMPRESSION: 1. 14 mm partially calcified nodule left upper lobe is unchanged. Previously noted 5 mm right infra hilar nodule is not identified at this time. No new nodules identified. Stability over a two-year shadi eframe should be documented radiograph
== END | disposition home or self-care (01) ==
LOC: RADCTMAIN 13:29
PROVIDERS: ATTEND Family Medicine
DX: R91.1 Solitary pulmonary nodule (principal)
CPT/HCPCS: 71260; Q9967

== ENCOUNTER 2019-05-07 15:03 | Emergency (ER) | payer OTHER ==
[2019-05-07 15:21] VITALS: TEMP 97.8
[2019-05-07] MEDS ORDERED: SODIUM CHLORIDE 0.9% 1,000 ML IV ONE (15:44)
[2019-05-07 16:27] LABS: Basophils % (A) 0 %; Eosinophils # (A) 0.2 k/uL (0-0.7); Eosinophils % (A) 2 %; HCT 38.1 % (34.0-46.0); Lymphocytes # (A) 2.9 k/uL (1.0-4.8); Lymphocytes % (A) 24 %; MCH 25.4 pg (25.0-35.0); MCHC 31.4 g/dL (31.0-37.0); MCV 80.9 fL (80.0-100.0); Mean Platelet Volume 7.3; Monocytes # (A) 0.6 k/uL (0-1.0); Monocytes % (A) 5 %; Neutrophils # (A) 8.3 k/uL (1.3-7.7); Neutrophils % (A) 67 %; Platelet Count 328 k/uL (150-450); RBC 4.72 m/uL (3.80-5.40); RDW 13.8 % (11.5-15.5); WBC 12.3 k/uL (3.8-10.6)
[2019-05-07 16:34] LABS: Appearance,Urine Cloudy (Clear); Bacteria,Urine Few /hpf; Bilirubin,Urine Negative (Negative); Blood,Urine Moderate (Negative); Color,Urine Yellow; Glucose,Urine (UA) Negative (Negative); Ketones,Urine Negative (Negative); Leukocyte Esterase,Urine Moderate (Negative); Mucus,Urine Rare /hpf; Nitrite,Urine Negative (Negative); PH, Urine 5.5 (5.0-8.0); Protein,Urine Trace (Negative); RBC,Urine 6 /hpf (0-5); Specific Gravity,Urine 1.029 (1.001-1.035); Squamous Epithelial Cell,Urine 18 /hpf (0-4); Urobilinogen,Urine <2.0 mg/dL (<2.0); WBC,Urine 10 /hpf (0-5)
[2019-05-07 16:39] LABS: ALT 18 U/L (9-52); AST 20 U/L (14-36); African American GFR (CKD) >90 (>60 ml/min/1.73 sqM); Albumin 4.3 g/dL (3.5-5.0); Alkaline Phosphatase 70 U/L (38-126); Amylase 85 U/L (30-110); Anion Gap 10 mmol/L; Blood Urea Nitrogen 23 mg/dL (7-17); Calcium 9.4 mg/dL (8.4-10.2); Carbon Dioxide 24 mmol/L (22-30); Chloride 107 mmol/L (98-107); Glucose 91 mg/dL (74-99); Non-African American GFR(CKD) >90 (>60 ml/min/1.73 sqM); Potassium 3.8 mmol/L (3.5-5.1); Sodium 141 mmol/L (137-145); Total Bilirubin 0.3 mg/dL (0.2-1.3); Total Protein 7.7 g/dL (6.3-8.2)
--- NOTE | 2019-05-07 16:59 | US ---
EXAMINATION TYPE: US abdomen limited DATE OF EXAM: 05/07/2019 COMPARISON: CT CLINICAL HISTORY: RUQ pain, look for stones, cholecystitis. EC patient with RUQ pain x 5 days; ate fr ied fish at 12:00 EXAM MEASUREMENTS: Liver Length: 19.9 cm Gallbladder Wall: 0.2 cm CBD: 0.3 cm Right Kidney: 10.0 x 5.4 x 4.4 cm Pancreas: wnl Liver: possible Reidel's lobe right as elongated liver is seen extending inferior to right kidney Gallbladder: wnl; may be partially contracted as patient is not 6 hours NPO Evidence for sonographic Gilbert's sign: tender here CBD: wnl Right Kidney: No hydronephrosis or masses seen IMPRESSION: Contracted gallbladder. No gallstones or dilated ducts. Normal right kidney.
--- NOTE | 2019-05-07 17:11 | ED ---
Abdominal Pain HPI - General Chief Complaint: Abdominal Pain Stated Complaint: abd pain Time Seen by Provider: 05/07/19 15:44 Source: patient Mode of arrival: ambulatory Limitations: no limitations - History of Present Illness Initial Comments: 39yo female presents emergency department for evaluation of right upper abdominal pain x 4 days. Patient states the past 4 days she has had right upper abdominal pain she states it began Friday. She states it comes and goes she states that at times it radiates towards the back. Patient denies having chest pain she denies any pain with inspiration hemoptysis or leg swelling. Patient denies any history of DVT or pulmonary embolism. Patient denies any fever loose stools or vomiting states she has occasional nausea. Patient denies shortness of breath. Patient denies hematuria urgency frequency dysuria or vaginal discharge. Patient denies lower abdominal pain. Patient describes it as a sharp pain. Patient denies any specific alleviating or aggravating factors. Patient states she was concerned about her gallbladder presents emergency room for further evaluation. Upon arrival patient patient appears well, no signs of acute distress. - Related Data Home Medications Medication Instructions Recorded Confirmed Ibuprofen [Motrin Ib] 400 mg PO Q6H PRN 07/23/18 10/05/18 Previous Rx's Medication Instructions Recorded Sulfamethox-Tmp 800-160Mg [Bactrim 1 tab PO Q12HR #20 tab 10/26/18 DS 800-160 mg] Sulfamethox-Tmp 800-160Mg [Bactrim 1 tab PO Q12HR #20 tab 11/29/18 DS 800-160 mg] Ciprofloxacin HCl [Cipro] 500 mg PO BID 7 Days #14 tab 04/03/19 metroNIDAZOLE [Flagyl] 500 mg PO TID 7 Days #21 tab 04/03/19 Allergies Allergy/AdvReac Type Severity Reaction Status Date / Time Penicillins Allergy Rash/Hives Verified 05/07/19 15:21 Review of Systems ROS Statement: Those systems with pertinent positive or pertinent negative responses have been documented in the HPI. ROS Other: All systems not noted in ROS Statement are negative. Past Medical History Past Medical History: No Reported History History of Any Multi-Drug Resistant Organisms: None Reported Past Surgical History: Appendectomy, Section Past Anesthesia/Blood Transfusion Reactions: No Reported Reaction Additional Past Anesthesia/Blood Transfusion Reaction / Comment(s): CLAUSTERPHOBIA Past Psychological History: No Psychological Hx Reported Smoking Status: Never smoker Past Alcohol Use History: Occasional Past Drug Use History: None Reported - Past Family History Mother Family Medical History: Diabetes Mellitus Father Family Medical History: No Reported History General Exam - General Exam Comments Initial Comments: General: The patient is awake and alert, in no distress, and does not appear acutely ill. Eye: +3 mm pupils are equal, round and reactive to light, extra-ocular movements are intact. No nystagmus. There is normal conjunctiva bilaterally. No signs of icterus. Ears, nose, mouth and throat: There are moist mucous membranes and no oral lesions. Neck: The neck is supple, there is no tenderness or JVD. Cardiovascular: There is a regular rate and rhythm. No murmur, rub or gallop is appreciated. Respiratory: Lungs are clear to auscultation, respirations are non-labored, breath sounds are equal. No wheezes, stridor, rales, or rhonchi. Gastrointestinal: Soft, non-distended, tender to palpation of the RUQ with positive murphys sign, the remaining abdomen is nontender without masses or organomegaly noted. There is no rebound or guarding present. No CVA tenderness. Bowel sounds are unremarkable. Musculoskeletal: Normal ROM, no tenderness. Strength 5/5. Sensation intact. Pulses equal bilaterally 2+. Neurological: A&O x 3. CN II-XII intact grossly, There are no obvious motor or sensory deficits. Coordination appears grossly intact. Speech is normal. Skin: Skin is warm and dry and no rashes or lesions are noted. (-) homans b/l, no LE edema. Psychiatric: Cooperative, appropriate mood & affect, normal judgment. Limitations: no limitations Course Vital Signs 05/07/19 05/07/19 15:19 19:00 Temperature 97.8 F Pulse Rate 83 70 Respiratory 18 16 Rate Blood Pressure 100/66 113/67 O2 Sat by Pulse 99 97 Oximetry Medical Decision Making - Medical Decision Making Very well appearing 39yo female with no signficiant PMH. Presenting for 4 days of RUQ abdominal pain.Patient has + murphys signs and RUQ tenderness on exam. No signs of peritoneal irritation. Patient has mild leukocytosis however lipase amylase AST LAT and alk phos are within acceptable limits patient's urinalysis is not a clean catch 18 squamous cells. US contracted gallbladder wtih no signs consistent with acute cholecystitis. CBD within acceptable limit. No stones. Patient appears in no distress. Patient denies CP, SOB. VS stable during visit. At this time I do feel patient is stable for discharge with outpatient primary care and general surgery follow-up. Patient is agreeable to this Plan return parameters were discussed and patient was discharged appearing well after discussing case in detail reviewing laboratory as well as imaging studies with my attending provider Dr Reynaga who is agreeable with care plan and discharge. - Lab Data Result diagrams: 05/07/19 16:00 05/07/19 16:00 Lab Results 05/07/19 05/07/19 05/07/19 Range/Units 16:00 16:00 16:08 WBC 12.3 H (3.8-10.6) k/uL RBC 4.72 (3.80-5.40) m/uL Hgb 12.0 (11.4-16.0) gm/dL Hct 38.1 (34.0-46.0) % MCV 80.9 (80.0-100.0) fL MCH 25.4 (25.0-35.0) pg MCHC 31.4 (31.0-37.0) g/dL RDW 13.8 (11.5-15.5) % Plt Count 328 (150-450) k/uL Neutrophils % 67 % Lymphocytes % 24 % Monocytes % 5 % Eosinophils % 2 % Basophils % 0 % Neutrophils # 8.3 H (1.3-7.7) k/uL Lymphocytes # 2.9 (1.0-4.8) k/uL Monocytes # 0.6 (0-1.0) k/uL Eosinophils # 0.2 (0-0.7) k/uL Basophils # 0.0 (0-0.2) k/uL Sodium 141 (137-145) mmol/L Potassium 3.8 (3.5-5.1) mmol/L Chloride 107 (98-107) mmol/L Carbon Dioxide 24 (22-30) mmol/L Anion Gap 10 mmol/L BUN 23 H (7-17) mg/dL Creatinine 0.76 (0.52-1.04) mg/dL Est GFR (CKD-EPI)AfAm >90 (>60 ml/min/1.73 sqM) Est GFR (CKD-EPI)NonAf >90 (>60 ml/min/1.73 sqM) Glucose 91 (74-99) mg/dL Calcium 9.4 (8.4-10.2) mg/dL Total Bilirubin 0.3 (0.2-1.3) mg/dL AST 20 (14-36) U/L ALT 18 (9-52) U/L Alkaline Phosphatase 70 (38-126) U/L Total Protein 7.7 (6.3-8.2) g/dL Albumin 4.3 (3.5-5.0) g/dL Amylase 85 (30-110) U/L Lipase 105 (23-300) U/L Urine Color Urine Appearance (Clear) Urine pH (5.0-8.0) Ur Specific [place] (1.001-1.035) Urine Protein (Negative) Urine Glucose (UA) (Negative) Urine Ketones (Negative) Urine Blood (Negative) Urine Nitrite (Negative) Urine Bilirubin (Negative) Urine Urobilinogen (<2.0) mg/dL Ur Leukocyte Esterase (Negative) Urine RBC (0-5) /hpf Urine WBC (0-5) /hpf Ur Squamous Epith Cells (0-4) /hpf Urine Bacteria (None) /hpf Urine Mucus (None) /hpf Urine HCG, Qual Not Detected (Not Detectd) 05/07/19 Range/Units 16:08 WBC (3.8-10.6) k/uL RBC (3.80-5.40) m/uL Hgb (11.4-16.0) gm/dL Hct (34.0-46.0) % MCV (80.0-100.0) fL MCH (25.0-35.0) pg MCHC (31.0-37.0) g/dL RDW (11.5-15.5) % Plt Count (150-450) k/uL Neutrophils % % Lymphocytes % % Monocytes % % Eosinophils % % Basophils % % Neutrophils # (1.3-7.7) k/uL Lymphocytes # (1.0-4.8) k/uL Monocytes # (0-1.0) k/uL Eosinophils # (0-0.7) k/uL Basophils # (0-0.2) k/uL Sodium (137-145) mmol/L Potassium (3.5-5.1) mmol/L Chloride (98-107) mmol/L Carbon Dioxide (22-30) mmol/L Anion Gap mmol/L BUN (7-17) mg/dL Creatinine (0.52-1.04) mg/dL Est GFR (CKD-EPI)AfAm (>60 ml/min/1.73 sqM) Est GFR (CKD-EPI)NonAf (>60 ml/min/1.73 sqM) Glucose (74-99) mg/dL Calcium (8.4-10.2) mg/dL Total Bilirubin (0.2-1.3) mg/dL AST (14-36) U/L ALT (9-52) U/L Alkaline Phosphatase (38-126) U/L Total Protein (6.3-8.2) g/dL Albumin (3.5-5.0) g/dL Amylase (30-110) U/L Lipase (23-300) U/L Urine Color Yellow Urine Appearance Cloudy H (Clear) Urine pH 5.5 (5.0-8.0) Ur Specific [place] 1.029 (1.001-1.035) Urine Protein Trace H (Negative) Urine Glucose (UA) Negative (Negative) Urine Ketones Negative (Negative) Urine Blood Moderate H (Negative) Urine Nitrite Negative (Negative) Urine Bilirubin Negative (Negative) Urine Urobilinogen <2.0 (<2.0) mg/dL Ur Leukocyte Esterase Moderate H (Negative) Urine RBC 6 H (0-5) /hpf Urine WBC 10 H (0-5) /hpf Ur Squamous Epith Cells 18 H (0-4) /hpf Urine Bacteria Few H (None) /hpf Urine Mucus Rare H (None) /hpf Urine HCG, Qual (Not Detectd) Disposition Clinical Impression: RUQ abdominal tenderness, Contraction, gallbladder, Abdominal pain Disposition: HOME SELF-CARE Condition: Good Instructions (If sedation given, give patient instructions): Abdominal Pain (ED) Additional Instructions: Please use medication as discussed. Please follow-up with family doctor in the next 2 days, general surgery recommendation HIDA scan. Please return to emergency room if the symptoms increase or worsen or for any other concerns---. Is patient prescribed a controlled substance at d/c from ED?: No Referrals: Guillermina Alvarez MD [Primary Care Provider] - 1-2 days Jaron Mathis MD [STAFF PHYSICIAN] - 1-2 days Time of Disposition: 18:07
--- NOTE | 2019-05-07 17:40 | XR ---
EXAMINATION TYPE: XR chest 2V DATE OF EXAM: 05/07/2019 COMPARISON: 07/20/2018 HISTORY: Right upper quadrant pain TECHNIQUE: Frontal and lateral views of the chest are obtained. FINDINGS: Heart and mediastinum are normal. There is 1.5 cm relatively dense nodule in the left uppe r lobe that probably has calcium. There is no pleural effusion. IMPRESSION: Dense left upper lobe nodule consistent with a granuloma and unchanged or slightly small er than last exam. Normal heart.
[2019-05-07 19:12] VITALS: BP 113/67; PULSE 70; RESP 16
== END 2019-05-07 19:00 | disposition home or self-care (01) ==
LOC: EC 15:03
DX: K82.0 Obstruction of gallbladder (principal); D72.829 Elevated white blood cell count, unspecified; Z88.0 Allergy status to penicillin; Z90.89 Acquired absence of other organs
CPT/HCPCS: 36415; 71046; 76705; 80053; 81001; 81025; 82150; 83690; 85025; 96360; 99284

== ENCOUNTER 2019-05-17 06:19 | Emergency (ER) | payer OTHER ==
[2019-05-17 06:25] VITALS: BP 106/64; PULSE 79; RESP 18; TEMP 97.7
[2019-05-17] MEDS ORDERED: SODIUM CHLORIDE 0.9% 1,000 ML IV STA (06:28)
[2019-05-17 06:46] LABS: Basophils # (A) 0.1 k/uL (0-0.2); Basophils % (A) 1 %; Eosinophils # (A) 0.2 k/uL (0-0.7); Eosinophils % (A) 2 %; HCT 40.2 % (34.0-46.0); HGB 12.4 gm/dL (11.4-16.0); Lymphocytes # (A) 2.3 k/uL (1.0-4.8); Lymphocytes % (A) 23 %; MCH 25.2 pg (25.0-35.0); MCHC 30.9 g/dL (31.0-37.0); MCV 81.5 fL (80.0-100.0); Monocytes # (A) 0.5 k/uL (0-1.0); Monocytes % (A) 5 %; Neutrophils # (A) 6.6 k/uL (1.3-7.7); Neutrophils % (A) 67 %; Platelet Count 347 k/uL (150-450); RBC 4.93 m/uL (3.80-5.40)
[2019-05-17] MEDS ORDERED: ONDANSETRON 4 MG/2 ML VIAL IVP STA (06:47)
[2019-05-17] MEDS ORDERED: KETOROLAC 30 MG/ML 1 ML VIAL IVP STA (06:47)
[2019-05-17 06:51] LABS: Appearance,Urine Clear (Clear); Bilirubin,Urine Negative (Negative); Blood,Urine Moderate (Negative); Color,Urine Yellow; Glucose,Urine (UA) Negative (Negative); Ketones,Urine Negative (Negative); Leukocyte Esterase,Urine Trace (Negative); Mucus,Urine Rare /hpf; Nitrite,Urine Negative (Negative); Protein,Urine Negative (Negative); RBC,Urine 10 /hpf (0-5); Specific Gravity,Urine 1.029 (1.001-1.035); Sperm,Urine Few /hpf; Squamous Epithelial Cell,Urine 1 /hpf (0-4); Urobilinogen,Urine <2.0 mg/dL (<2.0)
[2019-05-17 06:59] LABS: ALT 16 U/L (9-52); AST 19 U/L (14-36); African American GFR (CKD) >90 (>60 ml/min/1.73 sqM); Albumin 4.1 g/dL (3.5-5.0); Alkaline Phosphatase 77 U/L (38-126); Amylase 81 U/L (30-110); Anion Gap 8 mmol/L; Blood Urea Nitrogen 21 mg/dL (7-17); Calcium 9.1 mg/dL (8.4-10.2); Carbon Dioxide 26 mmol/L (22-30); Chloride 106 mmol/L (98-107); Glucose 94 mg/dL (74-99); Potassium 3.9 mmol/L (3.5-5.1); Sodium 140 mmol/L (137-145); Total Bilirubin 0.5 mg/dL (0.2-1.3); Total Protein 7.5 g/dL (6.3-8.2)
--- NOTE | 2019-05-17 07:12 | ED ---
Abdominal Pain HPI - General Source: patient, RN notes reviewed Mode of arrival: ambulatory Limitations: no limitations <Jean Torres - Last Filed: 05/17/19 07:17> <Jeane Pulliam - Last Filed: 05/17/19 07:31> - General Chief Complaint: Abdominal Pain Stated Complaint: stomach pain Time Seen by Provider: 05/17/19 06:27 - History of Present Illness Initial Comments: 39-year-old female presents emergency Department chief complaint abdominal discomfort. Patient states pain started approximate 3 hours ago. She's been having on and off issues in which she believes this is related to her gallbladder. She has had prior CAT scan and ultrasound. Patient is scheduled see a surgeon tomorrow. Patient has some slight nausea with no vomiting. Denies fever, chills, chest pain, shortness breath, diarrhea constipation. Patient states that she is unable to eat anything at this time because of the nausea. Patient has no dysuria no hematuria denies any chance . Patient is not taking anything for pain prior arrival (Jean Torres) - Related Data Home Medications Medication Instructions Recorded Confirmed Ibuprofen [Motrin Ib] 400 mg PO Q6H PRN 07/23/18 10/05/18 Previous Rx's Medication Instructions Recorded Sulfamethox-Tmp 800-160Mg [Bactrim 1 tab PO Q12HR #20 tab 10/26/18 DS 800-160 mg] Sulfamethox-Tmp 800-160Mg [Bactrim 1 tab PO Q12HR #20 tab 11/29/18 DS 800-160 mg] Ciprofloxacin HCl [Cipro] 500 mg PO BID 7 Days #14 tab 04/03/19 metroNIDAZOLE [Flagyl] 500 mg PO TID 7 Days #21 tab 04/03/19 Ondansetron Odt [Zofran Odt] 4 mg PO Q8HR PRN #10 tab 05/17/19 Allergies Allergy/AdvReac Type Severity Reaction Status Date / Time Penicillins Allergy Rash/Hives Verified 05/17/19 06:25 Review of Systems ROS Other: All systems not noted in ROS Statement are negative. <Jean Torres - Last Filed: 05/17/19 07:17> ROS Other: All systems not noted in ROS Statement are negative. <Jeane Pulliam - Last Filed: 05/17/19 07:31> ROS Statement: Those systems with pertinent positive or pertinent negative responses have been documented in the HPI. Past Medical History Past Medical History: No Reported History History of Any Multi-Drug Resistant Organisms: None Reported Past Surgical History: Appendectomy, Section Past Anesthesia/Blood Transfusion Reactions: No Reported Reaction Additional Past Anesthesia/Blood Transfusion Reaction / Comment(s): CLAUSTERPHOBIA Past Psychological History: No Psychological Hx Reported Smoking Status: Never smoker Past Alcohol Use History: Occasional Past Drug Use History: None Reported - Past Family History Mother Family Medical History: Diabetes Mellitus Father Family Medical History: No Reported History <Jean Torres - Last Filed: 05/17/19 07:17> General Exam Limitations: no limitations General appearance: alert, in no apparent distress Head exam: Present: atraumatic, normocephalic, normal inspection Eye exam: Present: normal appearance, PERRL, EOMI. Absent: scleral icterus, conjunctival injection, periorbital swelling ENT exam: Present: normal exam, mucous membranes moist Neck exam: Present: normal inspection, full ROM. Absent: tenderness, meningismus, lymphadenopathy Respiratory exam: Present: normal lung sounds bilaterally. Absent: respiratory distress, wheezes, rales, rhonchi, stridor Cardiovascular Exam: Present: regular rate, normal rhythm, normal heart sounds. Absent: systolic murmur, diastolic murmur, rubs, gallop, clicks GI/Abdominal exam: Present: soft, tenderness (Mild right-sided abdominal discomfort), normal bowel sounds. Absent: distended, guarding, rebound, rigid Back exam: Absent: CVA tenderness (R), CVA tenderness (L) Neurological exam: Present: alert, oriented X3 Skin exam: Present: warm, dry, intact, normal color. Absent: rash <Jean Torres M - Last Filed: 05/17/19 07:17> Course Vital Signs 05/17/19 06:23 Temperature 97.7 F Pulse Rate 79 Respiratory 18 Rate Blood Pressure 106/64 O2 Sat by Pulse 98 Oximetry Medical Decision Making - Lab Data Result diagrams: 05/17/19 06:31 05/17/19 06:31 <Jean Torres - Last Filed: 05/17/19 07:17> - Lab Data Result diagrams: 05/17/19 06:31 05/17/19 06:31 <Jeane Pulliam - Last Filed: 05/17/19 07:31> - Medical Decision Making Reviewed prior CT and ultrasound which shows no evidence of gallstones, gallbladder disease. Patient's labs unremarkable today. Patient may have underlying biliary dyskinesia. Patient does have an appointment tomorrow with her surgeon in which she is recommended follow-up and return for any worsening symptoms. (Jean Torres) I was available for consultation in the emergency room. History and physical exam were done by the mid-level provider. I was consulted for the patient's care. I reviewed the case with the mid-level provider and based on their presentation of the patient, I agree with the assessment, medical decision- making and plan of care as documented. Chart was dictated using [employer] dictation software. Attempts were made to correct any dictation errors however some typographical errors may persist (Jeane Pulliam) - Lab Data Lab Results 05/17/19 05/17/19 05/17/19 Range/Units 06:31 06:31 06:31 WBC 10.0 (3.8-10.6) k/uL RBC 4.93 (3.80-5.40) m/uL Hgb 12.4 (11.4-16.0) gm/dL Hct 40.2 (34.0-46.0) % MCV 81.5 (80.0-100.0) fL MCH 25.2 (25.0-35.0) pg MCHC 30.9 L (31.0-37.0) g/dL RDW 14.0 (11.5-15.5) % Plt Count 347 (150-450) k/uL Neutrophils % 67 % Lymphocytes % 23 % Monocytes % 5 % Eosinophils % 2 % Basophils % 1 % Neutrophils # 6.6 (1.3-7.7) k/uL Lymphocytes # 2.3 (1.0-4.8) k/uL Monocytes # 0.5 (0-1.0) k/uL Eosinophils # 0.2 (0-0.7) k/uL Basophils # 0.1 (0-0.2) k/uL Sodium 140 (137-145) mmol/L Potassium 3.9 (3.5-5.1) mmol/L Chloride 106 (98-107) mmol/L Carbon Dioxide 26 (22-30) mmol/L Anion Gap 8 mmol/L BUN 21 H (7-17) mg/dL Creatinine 0.73 (0.52-1.04) mg/dL Est GFR (CKD-EPI)AfAm >90 (>60 ml/min/1.73 sqM) Est GFR (CKD-EPI)NonAf >90 (>60 ml/min/1.73 sqM) Glucose 94 (74-99) mg/dL Plasma Lactic Acid [place] (0.7-2.0) mmol/L Calcium 9.1 (8.4-10.2) mg/dL Total Bilirubin 0.5 (0.2-1.3) mg/dL AST 19 (14-36) U/L ALT 16 (9-52) U/L Alkaline Phosphatase 77 (38-126) U/L Total Protein 7.5 (6.3-8.2) g/dL Albumin 4.1 (3.5-5.0) g/dL Amylase 81 (30-110) U/L Lipase 90 (23-300) U/L Urine Color Urine Appearance (Clear) Urine pH (5.0-8.0) Ur Specific [place] (1.001-1.035) Urine Protein (Negative) Urine Glucose (UA) (Negative) Urine Ketones (Negative) Urine Blood (Negative) Urine Nitrite (Negative) Urine Bilirubin (Negative) Urine Urobilinogen (<2.0) mg/dL Ur Leukocyte Esterase (Negative) Urine RBC (0-5) /hpf Urine WBC (0-5) /hpf Ur Squamous Epith Cells (0-4) /hpf Urine Mucus (None) /hpf Urine Sperm (None) /hpf Urine HCG, Qual Not Detected (Not Detectd) 05/17/19 05/17/19 Range/Units 06:31 06:50 WBC (3.8-10.6) k/uL RBC (3.80-5.40) m/uL Hgb (11.4-16.0) gm/dL Hct (34.0-46.0) % MCV (80.0-100.0) fL MCH (25.0-35.0) pg MCHC (31.0-37.0) g/dL RDW (11.5-15.5) % Plt Count (150-450) k/uL Neutrophils % % Lymphocytes % % Monocytes % % Eosinophils % % Basophils % % Neutrophils # (1.3-7.7) k/uL Lymphocytes # (1.0-4.8) k/uL Monocytes # (0-1.0) k/uL Eosinophils # (0-0.7) k/uL Basophils # (0-0.2) k/uL Sodium (137-145) mmol/L Potassium (3.5-5.1) mmol/L Chloride (98-107) mmol/L Carbon Dioxide (22-30) mmol/L Anion Gap mmol/L BUN (7-17) mg/dL Creatinine (0.52-1.04) mg/dL Est GFR (CKD-EPI)AfAm (>60 ml/min/1.73 sqM) Est GFR (CKD-EPI)NonAf (>60 ml/min/1.73 sqM) Glucose (74-99) mg/dL Plasma Lactic Acid [place] 0.8 (0.7-2.0) mmol/L Calcium (8.4-10.2) mg/dL Total Bilirubin (0.2-1.3) mg/dL AST (14-36) U/L ALT (9-52) U/L Alkaline Phosphatase (38-126) U/L Total Protein (6.3-8.2) g/dL Albumin (3.5-5.0) g/dL Amylase (30-110) U/L Lipase (23-300) U/L Urine Color Yellow Urine Appearance Clear (Clear) Urine pH 6.0 (5.0-8.0) Ur Specific [place] 1.029 (1.001-1.035) Urine Protein Negative (Negative) Urine Glucose (UA) Negative (Negative) Urine Ketones Negative (Negative) Urine Blood Moderate H (Negative) Urine Nitrite Negative (Negative) Urine Bilirubin Negative (Negative) Urine Urobilinogen <2.0 (<2.0) mg/dL Ur Leukocyte Esterase Trace H (Negative) Urine RBC 10 H (0-5) /hpf Urine WBC 7 H (0-5) /hpf Ur Squamous Epith Cells 1 (0-4) /hpf Urine Mucus Rare H (None) /hpf Urine Sperm Few H (None) /hpf Urine HCG, Qual (Not Detectd) Disposition Is patient prescribed a controlled substance at d/c from ED?: No Time of Disposition: 07:18 <Dedoe,Jean M - Last Filed: 05/17/19 07:17> <Jeane Pulliam - Last Filed: 05/17/19 07:31> Clinical Impression: Abdominal pain, Biliary colic symptom Disposition: HOME SELF-CARE Condition: Stable Instructions (If sedation given, give patient instructions): Abdominal Pain (ED) Additional Instructions: Follow up with your scheduled appointment tomorrow.Please return to the Emerg ency Department if symptoms worsen or any other concerns. Prescriptions: Ondansetron Odt [Zofran Odt] 4 mg PO Q8HR PRN #10 tab PRN Reason: Nausea Referrals: Guillermina Alvarez MD [Primary Care Provider] - 1-2 days
[2019-05-17] MEDS ORDERED: ACET/COD 300 MG/30 MG STARTER PACK 6 TAB BTL PO STA (07:18)
== END 2019-05-17 07:37 | disposition home or self-care (01) ==
LOC: EC 06:19
DX: K80.50 Calculus of bile duct without cholangitis or cholecystitis without obstruction (principal); Z88.0 Allergy status to penicillin
CPT/HCPCS: 36415; 80053; 82150; 83605; 83690; 85025; 81001; 81025; 99284; 96374; 96375; 96361; J2405; J1885

== ENCOUNTER 2019-05-22 21:10 | Emergency (ER) | payer OTHER ==
[2019-05-22 21:20] VITALS: BP 103/68; PULSE 82; RESP 18; TEMP 97.8
--- NOTE | 2019-05-22 21:34 | ED ---
General Adult HPI - General Chief complaint: Eye Problems Stated complaint: Eye issues Time Seen by Provider: 05/22/19 21:34 Source: patient Mode of arrival: ambulatory Limitations: no limitations - History of Present Illness Initial comments: Mdahavi is a 39 -year-old female who suffers from chronic dry eye, she follows with ophthalmology for this and has been prescribed hypertonic saline gel. Patient reports that due to her chronic dry she occasionally gets scratches on her eye. Patient reports that since earlier this week she's been experiencing a foreign body sensation consistent with scratch to her eye. Patient has been using her hypertonic saline as well as erythromycin ointment with minimal improvement which prompted her to come to the ER for reevaluation. Patient denies other symptoms. She denies any vision changes. - Related Data Home Medications Medication Instructions Recorded Confirmed Ibuprofen [Motrin Ib] 400 mg PO Q6H PRN 07/23/18 10/05/18 Previous Rx's Medication Instructions Recorded Sulfamethox-Tmp 800-160Mg [Bactrim 1 tab PO Q12HR #20 tab 10/26/18 DS 800-160 mg] Sulfamethox-Tmp 800-160Mg [Bactrim 1 tab PO Q12HR #20 tab 11/29/18 DS 800-160 mg] Ciprofloxacin HCl [Cipro] 500 mg PO BID 7 Days #14 tab 04/03/19 metroNIDAZOLE [Flagyl] 500 mg PO TID 7 Days #21 tab 04/03/19 Ondansetron Odt [Zofran Odt] 4 mg PO Q8HR PRN #10 tab 05/17/19 Allergies Allergy/AdvReac Type Severity Reaction Status Date / Time Penicillins Allergy Rash/Hives Verified 05/22/19 21:19 Review of Systems ROS Statement: Those systems with pertinent positive or pertinent negative responses have been documented in the HPI. ROS Other: All systems not noted in ROS Statement are negative. Past Medical History Past Medical History: No Reported History History of Any Multi-Drug Resistant Organisms: None Reported Past Surgical History: Appendectomy, Section Past Anesthesia/Blood Transfusion Reactions: No Reported Reaction Additional Past Anesthesia/Blood Transfusion Reaction / Comment(s): CLAUSTERPHOBIA Past Psychological History: No Psychological Hx Reported Smoking Status: Never smoker Past Alcohol Use History: Occasional Past Drug Use History: None Reported - Past Family History Mother Family Medical History: Diabetes Mellitus Father Family Medical History: No Reported History General Exam - General Exam Comments Initial Comments: Physical Exam GENERAL: Patient is well-developed and well-nourished. Patient is nontoxic and well-hydrated and is in no distress. HENT: Normocephalic, Atraumatic. Fluorescein staining of the left eye reveals small corneal abrasion over the iris at the 7 o'clock position corneal abrasion measures approximately 1-1.5 mm Negative Parvez sign No pain with extraocular movements EYES: PERRL, EOMI PULMONARY: Unlabored respirations. CARDIOVASCULAR: RRR ABDOMEN: Nondistended SKIN: Skin is clear with no lesions or rashes and otherwise unremarkable. : Deferred NEUROLOGIC: Patient is alert and oriented x3. Moving all extremities spontaneously MUSCULOSKELETAL: Normal extremities with adequate strength and full range of motion. No lower extremity swelling or edema. No calf tenderness. PSYCHIATRIC: Normal psychiatric evaluation. Limitations: no limitations Course Vital Signs 05/22/19 21:17 Temperature 97.8 F Pulse Rate 82 Respiratory 18 Rate Blood Pressure 103/68 O2 Sat by Pulse 98 Oximetry Medical Decision Making - Medical Decision Making Patient was seen and evaluated history and physical exam are systolic corneal abrasion, patient will be treated with Polytrim drops and discharged home. Patient has established care with an director learning she will follow up with. All questions pertaining care were answered return parameters were discussed patient was discharged home in stable condition. Disposition Clinical Impression: Corneal abrasion, left Disposition: HOME SELF-CARE Condition: Stable Is patient prescribed a controlled substance at d/c from ED?: No Referrals: Guillermina Alvarez MD [Primary Care Provider] - 1-2 days
[2019-05-22] MEDS ORDERED: POLYMYXIN B-TRIMETHOPRIM SULF (10,000-1) OPHTH DROPS 10 ML BTL LEFT EYE STA (22:12)
== END 2019-05-22 23:38 | disposition home or self-care (01) ==
LOC: EC 21:10
DX: S05.02XA Injury of conjunctiva and corneal abrasion without foreign body, left eye, initial encounter (principal); Z88.0 Allergy status to penicillin; X58.XXXA Exposure to other specified factors, initial encounter
CPT/HCPCS: 99283

== ENCOUNTER 2019-06-14 06:57 | Day surgery (SDC) | payer OTHER ==
[2019-06-11 08:56] VITALS: BMI 41.5
[~2019-06-14 06:57] MED LIST: DEXAMETHASONE SOD PHOSPHATE 10 MG/ML 1 ML VIAL IV ONE; HEPARIN SODIUM,PORCINE 5,000 UNIT/ML 1 ML VIAL SQ ONE; KETOROLAC 30 MG/ML 1 ML VIAL IVP SCH; LACTATED RINGERS 1,000 ML IV SCH; LIDOCAINE 1% 20 ML VIAL (10MG/ML) FOR IV START INTRADERMA PRN; METOCLOPRAMIDE 5 MG/ML 2 ML VIAL IVP PRN; ONDANSETRON 4 MG/2 ML VIAL IVP ONE; SCOPOLAMINE 1.5MG/72HR PATCH TRANSDERM ONE
[2019-06-14] MEDS ORDERED: fentaNYL (PF) 50 MCG/ML 2 ML AMP ONE (07:42)
[2019-06-14] MEDS ORDERED: NEOSTIGMINE 1 MG/ML 10 ML VIAL ONE (07:42)
[2019-06-14] MEDS ORDERED: ROCURONIUM BROMIDE 10 MG/ML 10 ML VIAL IV ONE (07:42)
[2019-06-14] MEDS ORDERED: GLYCOPYRROLATE 0.2 MG/ML 2 ML VIAL ONE (07:42)
[2019-06-14] MEDS ORDERED: PROPOFOL 10 MG/ML 20 ML VIAL IV ONE (07:42)
[2019-06-14] MEDS ORDERED: MIDAZOLAM 2 MG/2 ML VIAL ONE (07:42)
[2019-06-14] MEDS ORDERED: KETOROLAC 30 MG/ML 1 ML VIAL ONE (07:42)
[2019-06-14] MEDS ORDERED: SUCCINYLCHOLINE CHLORIDE 100 MG/5 ML SYR IV ONE (07:42)
--- NOTE | 2019-06-14 07:51 | P.GSHP ---
History of Present Illness H&P Date: 06/14/19 Chief Complaint: Right upper quadrant pain This is a 39-year-old female who presents today for laparoscopic cholecystectomy. Patient's had complaints of right quadrant pain. Her social shows evidence of chronic cholecystitis with chronically contracted gallbladder. Past Medical History Past Medical History: No Reported History Additional Past Medical History / Comment(s): MIGRAINE HEADACHE, History of Any Multi-Drug Resistant Organisms: None Reported Past Surgical History: Appendectomy, Section, Tubal Ligation Past Anesthesia/Blood Transfusion Reactions: No Reported Reaction Additional Past Anesthesia/Blood Transfusion Reaction / Comment(s): HISTORY OF CLAUSTERPHOBIA Smoking Status: Former smoker - Past Family History Mother Family Medical History: Diabetes Mellitus Father Family Medical History: No Reported History Medications and Allergies Home Medications Medication Instructions Recorded Confirmed Type Ibuprofen [Motrin Ib] 400 mg PO Q6H PRN 07/23/18 06/14/19 History Allergies Allergy/AdvReac Type Severity Reaction Status Date / Time Penicillins Allergy Rash/Hives Verified 06/11/19 08:35 Surgical - Exam Vital Signs Temp Pulse Resp BP Pulse Ox 98.2 F 92 14 131/71 99 06/14/19 07:17 06/14/19 07:17 06/14/19 07:17 06/14/19 07:17 06/14/19 07:17 - General well developed, well nourished, no distress - Eyes PERRL - ENT normal pinna - Neck no masses - Respiratory normal expansion - Cardiovascular Rhythm: regular - Abdomen Abdomen: soft, non tender Assessment and Plan Assessment: Chronic cholecystitis. We'll perform laparoscopic cholecystectomy.
[2019-06-14] MEDS ORDERED: BUPIVACAINE (PF) 0.5% 30 ML VIAL SQ ONE (08:14)
--- NOTE | 2019-06-14 08:41 | P.OP ---
Date of Procedure: 06/14/19 Preoperative Diagnosis: Cholecystitis Postoperative Diagnosis: Cholecystitis Procedure(s) Performed: Laparoscopic cholecystectomy Anesthesia: EVANGELISTA Surgeon: Jaron Mathis Estimated Blood Loss (ml): 5 Pathology: other (Gallbladder) Condition: stable Disposition: PACU Description of Procedure: The patient was placed on the operating table. The patient received a general endotracheal tube anesthesia. The patients abdomen was prepped and draped in the usual sterile fashion. Through an infraumbilical stab incision, the fascia of the anterior abdominal wall was grasped with a pair of Kochers and then the Veress needle was placed in the peritoneal cavity. Position of the Veress needle was confirmed with positive drop test. The abdomen was then insufflated. After adequate insufflation, the 10 mm trocar was placed in the peritoneal cavity. Following this the laparoscope was placed in the peritoneal cavity. The patient was placed in the head-up, right side up position and then a 5 mm trocar was placed in the right lateral and right subcostal position under direct visualization. A 8 mm trocar was placed in the epigastric position. The gallbladder was grasped in the fundus and infundibulum. Traction on the gallbladder was placed in the lateral and the cephalad positions. The triangle of Calot was visualized.. The cystic duct was bluntly dissected until the union of the cystic duct and common bile duct was seen. A critical view of safety was achieved. The cystic duct was then divided and sealed with the Harmonic scissors. A PDS Endoloop was then placed throughout the cystic duct stump. The cystic artery divided and sealed with the Harmonic scissors. The gallbladder was then removed from the liver bed using Harmonic scissors. The gallbladder was then extracted through the epigastric port site. Operative field was checked for any bleeding spots and Harmonic scissors was used to coagulate the liver bed. The abdomen was irrigated. The trocars were removed. The skin was closed using interrupted 3-0 Vicryl suture. Dermabond dressing were applied. The patient tolerated the procedure well.
[2019-06-14] MEDS ORDERED: ONDANSETRON 4 MG/2 ML VIAL IVP ONE (08:49)
[2019-06-14] MEDS: HYDROmorphone 0.5 MG/0.5 ML SYRINGE IVP PRN ×4 (08:50→09:32)
[2019-06-14 09:00] VITALS: TEMP 97
[2019-06-14 09:03] VITALS: RESP 16
[2019-06-14] MEDS ORDERED: LACTATED RINGERS 1,000 ML IV ONE (09:11)
[2019-06-14] MEDS ORDERED: HYDROcodone/APAP 5-325MG 1 EACH TAB PO ONE (10:27)
[2019-06-14 11:27] VITALS: BP 114/75; PULSE 80
== END 2019-06-14 11:31 | disposition home or self-care (01) ==
LOC: OR 06:57
PROVIDERS: ATTEND Surgery
DX: K81.1 Chronic cholecystitis (principal); G43.909 Migraine, unspecified, not intractable, without status migrainosus; F40.240 Claustrophobia; Z87.891 Personal history of nicotine dependence; Z90.49 Acquired absence of other specified parts of digestive tract; Z98.890 Other specified postprocedural states; Z98.51 Tubal ligation status; Z88.0 Allergy status to penicillin; Z79.1 Long term (current) use of non-steroidal anti-inflammatories (NSAID); Z83.3 Family history of diabetes mellitus
CPT/HCPCS: 81025; 88304; 47562; J2250; J1644; J1100; J2710; J0690; J2405; J3010; J1885; J0330; J2704; J1170

== ENCOUNTER 2019-08-22 14:29 | Emergency (ER) | payer OTHER ==
[2019-08-22 14:32] VITALS: TEMP 98.1
[2019-08-22] MEDS ORDERED: ONDANSETRON 4 MG/2 ML VIAL IVP STA (14:49)
--- NOTE | 2019-08-22 14:51 | ED ---
General Adult HPI - General Chief complaint: Abdominal Pain Stated complaint: Abd Pain Time Seen by Provider: 08/22/19 14:30 Source: patient, RN notes reviewed, old records reviewed Mode of arrival: ambulatory Limitations: no limitations - History of Present Illness Initial comments: This is a 39-year-old female who presents emergency Department complaining of 20 minutes of abdominal pain in the epigastric region to right upper quadrant area. Patient states she was bending over when the pain started it was quite painful. Patient states she's nauseated but hasn't vomited. Patient denies any fever chills per patient states she's not had pain like this before. Patient states she's had her gallbladder out and appendix out. Patient denies any history of ulcers. Patient denies any history of pain continues. Patient states she's not a drinker. Patient denies any back pain. Patient denies chest pain or palpitations. Patient denies any difficulty breathing or shortness of breath. Patient denies any lightheadedness or dizziness. Patient denies any dysuria hematuria urinary frequency. - Related Data Home Medications Medication Instructions Recorded Confirmed Ibuprofen [Motrin Ib] 400 mg PO Q6H PRN 07/23/18 06/14/19 Previous Rx's Medication Instructions Recorded Docusate [Colace] 100 mg PO BID #20 capsule 06/14/19 HYDROcodone/APAP 5-325MG [[place] 1 tab PO Q6HR PRN #10 tab 06/14/19 5-325] Allergies Allergy/AdvReac Type Severity Reaction Status Date / Time Penicillins Allergy Rash/Hives Verified 08/22/19 14:32 Review of Systems ROS Statement: Those systems with pertinent positive or pertinent negative responses have been documented in the HPI. ROS Other: All systems not noted in ROS Statement are negative. Past Medical History Past Medical History: No Reported History History of Any Multi-Drug Resistant Organisms: None Reported Past Surgical History: Appendectomy, Section, Cholecystectomy Past Anesthesia/Blood Transfusion Reactions: No Reported Reaction Additional Past Anesthesia/Blood Transfusion Reaction / Comment(s): CLAUSTERPHOBIA Past Psychological History: No Psychological Hx Reported Smoking Status: Never smoker Past Alcohol Use History: Occasional Past Drug Use History: None Reported - Past Family History Mother Family Medical History: Diabetes Mellitus Father Family Medical History: No Reported History General Exam - General Exam Comments Initial Comments: GENERAL: Patient is well-developed and well-nourished. Patient is nontoxic and well- hydrated and is in mild distress. ENT: Neck is soft and supple. No significant lymphadenopathy is noted. Oropharynx is clear. Moist mucous membranes. Neck has full range of motion without eliciting any pain. EYES: The sclera were anicteric and conjunctiva were pink and moist. Extraocular movements were intact and pupils were equal round and reactive to light. Eyelids were unremarkable. PULMONARY: Unlabored respirations. Good breath sounds bilaterally. No audible rales rhonchi or wheezing was noted. CARDIOVASCULAR: There is a regular rate and rhythm without any murmurs gallops or rubs. ABDOMEN: Patient has tenderness in the area just above the umbilicus and a little bit to the right as well SKIN: Skin is clear with no lesions or rashes and otherwise unremarkable. NEUROLOGIC: Patient is alert and oriented x3. Cranial nerves II through XII are grossly intact. Motor and sensory are also intact. Normal speech, volume and content. Symmetrical smile. MUSCULOSKELETAL: Normal extremities with adequate strength and full range of motion. No lower extremity swelling or edema. No calf tenderness. LYMPHATICS: No significant lymphadenopathy is noted PSYCHIATRIC: Normal psychiatric evaluation. Limitations: no limitations Course Vital Signs 08/22/19 14:30 Temperature 98.1 F Pulse Rate 89 Respiratory 20 Rate Blood Pressure 120/76 O2 Sat by Pulse 100 Oximetry Medical Decision Making - Medical Decision Making I went back in and reexamined the patient she had no abdominal pain on palpation. Patient states she still felt the area was tight but the pain medicine helped considerably. Patient states she'll follow-up with Dr. alarcon tomorrow. - Lab Data Result diagrams: 08/22/19 14:44 08/22/19 14:44 Lab Results 08/22/19 08/22/19 08/22/19 Range/Units 14:44 14:44 15:50 WBC 10.8 H (3.8-10.6) k/uL RBC 4.87 (3.80-5.40) m/uL Hgb 12.1 (11.4-16.0) gm/dL Hct 38.1 (34.0-46.0) % MCV 78.3 L (80.0-100.0) fL MCH 24.8 L (25.0-35.0) pg MCHC 31.7 (31.0-37.0) g/dL RDW 14.0 (11.5-15.5) % Plt Count 291 (150-450) k/uL Neutrophils % 64 % Lymphocytes % 26 % Monocytes % 6 % Eosinophils % 1 % Basophils % 1 % Neutrophils # 7.0 (1.3-7.7) k/uL Lymphocytes # 2.8 (1.0-4.8) k/uL Monocytes # 0.6 (0-1.0) k/uL Eosinophils # 0.1 (0-0.7) k/uL Basophils # 0.1 (0-0.2) k/uL Sodium 138 (137-145) mmol/L Potassium 4.1 (3.5-5.1) mmol/L Chloride 104 (98-107) mmol/L Carbon Dioxide 23 (22-30) mmol/L Anion Gap 11 mmol/L BUN 22 H (7-17) mg/dL Creatinine 0.96 (0.52-1.04) mg/dL Est GFR (CKD-EPI)AfAm 85 (>60 ml/min/1.73 sqM) Est GFR (CKD-EPI)NonAf 74 (>60 ml/min/1.73 sqM) Glucose 96 (74-99) mg/dL Calcium 8.9 (8.4-10.2) mg/dL Total Bilirubin 0.5 (0.2-1.3) mg/dL AST 57 H (14-36) U/L ALT 23 (4-34) U/L Alkaline Phosphatase 97 (38-126) U/L Total Protein 7.6 (6.3-8.2) g/dL Albumin 4.3 (3.5-5.0) g/dL Amylase 76 (30-110) U/L Lipase 122 (23-300) U/L Urine Color Yellow Urine Appearance Cloudy H (Clear) Urine pH 7.0 (5.0-8.0) Ur Specific [place] 1.021 (1.001-1.035) Urine Protein Negative (Negative) Urine Glucose (UA) Negative (Negative) Urine Ketones Negative (Negative) Urine Blood Small H (Negative) Urine Nitrite Negative (Negative) Urine Bilirubin Negative (Negative) Urine Urobilinogen 2.0 (<2.0) mg/dL Ur Leukocyte Esterase Small H (Negative) Urine RBC 7 H (0-5) /hpf Urine WBC 4 (0-5) /hpf Ur Squamous Epith Cells 13 H (0-4) /hpf Amorphous Sediment Rare H (None) /hpf Urine Bacteria Rare H (None) /hpf Hyaline Casts 1 (0-2) /lpf Urine Mucus Rare H (None) /hpf Urine HCG, Qual (Not Detectd) Urine Opiates Screen Not Detected (NotDetected) Ur Oxycodone Screen Not Detected (NotDetected) Urine Methadone Screen Not Detected (NotDetected) Ur Propoxyphene Screen Not Detected (NotDetected) Ur Barbiturates Screen Not Detected (NotDetected) U Tricyclic Antidepress Not Detected (NotDetected) Ur Phencyclidine Scrn Not Detected (NotDetected) Ur Amphetamines Screen Not Detected (NotDetected) U Methamphetamines Scrn Not Detected (NotDetected) U Benzodiazepines Scrn Not Detected (NotDetected) Urine Cocaine Screen Not Detected (NotDetected) U Marijuana (THC) Screen Not Detected (NotDetected) 08/22/19 Range/Units 15:50 WBC (3.8-10.6) k/uL RBC (3.80-5.40) m/uL Hgb (11.4-16.0) gm/dL Hct (34.0-46.0) % MCV (80.0-100.0) fL MCH (25.0-35.0) pg MCHC (31.0-37.0) g/dL RDW (11.5-15.5) % Plt Count (150-450) k/uL Neutrophils % % Lymphocytes % % Monocytes % % Eosinophils % % Basophils % % Neutrophils # (1.3-7.7) k/uL Lymphocytes # (1.0-4.8) k/uL Monocytes # (0-1.0) k/uL Eosinophils # (0-0.7) k/uL Basophils # (0-0.2) k/uL Sodium (137-145) mmol/L Potassium (3.5-5.1) mmol/L Chloride (98-107) mmol/L Carbon Dioxide (22-30) mmol/L Anion Gap mmol/L BUN (7-17) mg/dL Creatinine (0.52-1.04) mg/dL Est GFR (CKD-EPI)AfAm (>60 ml/min/1.73 sqM) Est GFR (CKD-EPI)NonAf (>60 ml/min/1.73 sqM) Glucose (74-99) mg/dL Calcium (8.4-10.2) mg/dL Total Bilirubin (0.2-1.3) mg/dL AST (14-36) U/L ALT (4-34) U/L Alkaline Phosphatase (38-126) U/L Total Protein (6.3-8.2) g/dL Albumin (3.5-5.0) g/dL Amylase (30-110) U/L Lipase (23-300) U/L Urine Color Urine Appearance (Clear) Urine pH (5.0-8.0) Ur Specific [place] (1.001-1.035) Urine Protein (Negative) Urine Glucose (UA) (Negative) Urine Ketones (Negative) Urine Blood (Negative) Urine Nitrite (Negative) Urine Bilirubin (Negative) Urine Urobilinogen (<2.0) mg/dL Ur Leukocyte Esterase (Negative) Urine RBC (0-5) /hpf Urine WBC (0-5) /hpf Ur Squamous Epith Cells (0-4) /hpf Amorphous Sediment (None) /hpf Urine Bacteria (None) /hpf Hyaline Casts (0-2) /lpf Urine Mucus (None) /hpf Urine HCG, Qual Not Detected (Not Detectd) Urine Opiates Screen (NotDetected) Ur Oxycodone Screen (NotDetected) Urine Methadone Screen (NotDetected) Ur Propoxyphene Screen (NotDetected) Ur Barbiturates Screen (NotDetected) U Tricyclic Antidepress (NotDetected) Ur Phencyclidine Scrn (NotDetected) Ur Amphetamines Screen (NotDetected) U Methamphetamines Scrn (NotDetected) U Benzodiazepines Scrn (NotDetected) Urine Cocaine Screen (NotDetected) U Marijuana (THC) Screen (NotDetected) Disposition Clinical Impression: Abdominal pain Disposition: HOME SELF-CARE Instructions (If sedation given, give patient instructions): Abdominal Pain (ED) Is patient prescribed a controlled substance at d/c from ED?: No Referrals: Guillermina Alvarez MD [Primary Care Provider] - 1-2 days Time of Disposition: 16:22
[2019-08-22 14:59] LABS: Basophils # (A) 0.1 k/uL (0-0.2); Basophils % (A) 1 %; Eosinophils # (A) 0.1 k/uL (0-0.7); Eosinophils % (A) 1 %; HCT 38.1 % (34.0-46.0); HGB 12.1 gm/dL (11.4-16.0); Lymphocytes # (A) 2.8 k/uL (1.0-4.8); Lymphocytes % (A) 26 %; MCH 24.8 pg (25.0-35.0); MCHC 31.7 g/dL (31.0-37.0); MCV 78.3 fL (80.0-100.0); Mean Platelet Volume 8.9; Monocytes # (A) 0.6 k/uL (0-1.0); Monocytes % (A) 6 %; Neutrophils % (A) 64 %; Platelet Count 291 k/uL (150-450); RBC 4.87 m/uL (3.80-5.40); WBC 10.8 k/uL (3.8-10.6)
[2019-08-22 15:09] LABS: Albumin 4.3 g/dL (3.5-5.0); Calcium 8.9 mg/dL (8.4-10.2); Potassium 4.1 mmol/L (3.5-5.1); Total Bilirubin 0.5 mg/dL (0.2-1.3); Total Protein 7.6 g/dL (6.3-8.2)
[2019-08-22] MEDS ORDERED: KETOROLAC 30 MG/ML 1 ML VIAL IVP STA (15:17)
[2019-08-22 16:06] LABS: Amorphous Sediment,Urine Rare /hpf; Appearance,Urine Cloudy (Clear); Bacteria,Urine Rare /hpf; Bilirubin,Urine Negative (Negative); Blood,Urine Small (Negative); Color,Urine Yellow; Glucose,Urine (UA) Negative (Negative); Hyaline Casts,Urine 1 /lpf (0-2); Ketones,Urine Negative (Negative); Leukocyte Esterase,Urine Small (Negative); Mucus,Urine Rare /hpf; Nitrite,Urine Negative (Negative); Protein,Urine Negative (Negative); RBC,Urine 7 /hpf (0-5); Specific Gravity,Urine 1.021 (1.001-1.035); Squamous Epithelial Cell,Urine 13 /hpf (0-4); WBC,Urine 4 /hpf (0-5)
[2019-08-22 16:14] LABS: Amphetamine Screen,Urine Not Detected (NotDetected); Barbiturate Screen,Urine Not Detected (NotDetected); Benzodiazepines Screen,Urine Not Detected (NotDetected); Cocaine Screen,Urine Not Detected (NotDetected); Methadone Screen, Urine Not Detected (NotDetected); Opiate Screen,Urine Not Detected (NotDetected); Oxycodone Screen, Urine Not Detected (NotDetected); Phencyclidine Screen,Urine Not Detected (NotDetected); Tricyclic Antidepressant,Urine Not Detected (NotDetected); Urn Cannabinoid Scrn Not Detected (NotDetected)
[2019-08-22] MEDS ORDERED: ONDANSETRON 4 MG ODT STARTER PACK 2 TAB BTL PO STA (16:27)
[2019-08-22 16:35] VITALS: BP 121/81; PULSE 82; RESP 18
== END 2019-08-22 16:35 | disposition home or self-care (01) ==
LOC: EC 14:29
DX: R10.13 Epigastric pain (principal); R10.11 Right upper quadrant pain; R11.0 Nausea; Z88.0 Allergy status to penicillin; Z90.89 Acquired absence of other organs; Z90.49 Acquired absence of other specified parts of digestive tract
CPT/HCPCS: 36415; 80053; 82150; 83690; 85025; 81001; 81025; 80306; 99284; 96374; 96375; J2405; J1885; S0119

== ENCOUNTER → 2019-09-08 | Outpatient (CLI) | payer OTHER ==
--- NOTE | 2019-09-09 07:34 | US ---
EXAMINATION TYPE: US pelvic complete DATE OF EXAM: 09/08/2019 COMPARISON: NONE CLINICAL HISTORY: R10.2 Pelvic Pain. Pelvic pain, history of TECHNIQUE: Transabdominal (TA) Date of LMP: unknown EXAM MEASUREMENTS: Uterus: 9.0 x 3.7 x 4.7 cm Endometrial Stripe: 0.4 cm Right Ovary: 2.7 x 1.4 x 1.5 cm Left Ovary: 2.5 x 1.2 x 2.9 cm 1. Uterus: Anteverted 2. Endometrium: appears wnl 3. Right Ovary: appears wnl 4. Left Ovary: follicles noted 5. Bilateral Adnexa: appears wnl 6. Posterior cul-de-sac: wnl IMPRESSION: Physiologic follicular change of the left ovary. Overall unremarkable exam with normal en dometrial thickness.
== END | disposition home or self-care (01) ==
LOC: RADUSWWP 16:25
PROVIDERS: ATTEND Obstetrics & Gynecology
DX: R10.2 Pelvic and perineal pain (principal)
CPT/HCPCS: 76856

== ENCOUNTER → 2020-08-16 | Outpatient (CLI) | payer OTHER ==
--- NOTE | 2020-08-16 16:30 | CT ---
EXAMINATION TYPE: CT chest w con DATE OF EXAM: 08/16/2020 COMPARISON: Chest CT May 04, 2019 and older CTs HISTORY: Lung Nodules CT DLP: 336 mGycm. Automated Exposure Control for Dose Reduction was Utilized. TECHNIQUE: CT scan of the thorax is performed following with IV Contrast, patient injected with 100 mL of Isovue 300. FINDINGS: LUNGS: Stable in size 13 mm left upper lobe nodule axial image 16 now is more densely calcified. N o new suspicious noncalcified nodules or masses. There is no pleural effusion or pneumothorax seen. The tracheobronchial tree is patent. MEDIASTINUM: There are no new greater than 1 cm noncalcified hilar or mediastinal lymph nodes. No c ardiomegaly or pericardial effusion is seen. OTHER: No additional significant abnormality is seen. IMPRESSION: Stable in size 13 mm left upper lobe lateral nodule now more densely calcified almost cer tainly benign in etiology. No new or enlarging nodules.
== END | disposition home or self-care (01) ==
LOC: RADCTMAIN 15:35
PROVIDERS: ATTEND Nurse Practitioner
DX: R91.1 Solitary pulmonary nodule (principal)
CPT/HCPCS: 71260; Q9967

== ENCOUNTER 2020-08-28 11:02 | Emergency (ER) | payer OTHER ==
[2020-08-28 11:19] VITALS: TEMP 98.6
[2020-08-28] MEDS ORDERED: SODIUM CHLORIDE 0.9% 1,000 ML IV STA (11:27)
--- NOTE | 2020-08-28 11:30 | ED ---
General Adult HPI - General Chief complaint: Abdominal Pain Stated complaint: abd pain Time Seen by Provider: 08/28/20 11:20 Source: patient, RN notes reviewed Mode of arrival: wheelchair Limitations: no limitations - History of Present Illness Initial comments: Patient is a 40-year-old female presented to the emergency room today with a chief complaint of lower abdominal pain that started yesterday. Patient does admit to feeling pain in both left and right lower side. Patient states she's never had pain similar to this in the past. She does admit that it's a constant pain. Unable to describe it. Patient states that the pain is bearable but she came here to emergency room physician 1-year-old was going on. Patient denies any other associated symptoms or any other complaints. Patient denies any recent fever, chills, shortness of breath, chest pain, back pain, nausea or vomiting, headaches or visual changes, or any other complaints. - Related Data Home Medications Medication Instructions Recorded Confirmed Ibuprofen [Motrin Ib] 400 mg PO Q6H PRN 07/23/18 06/14/19 Previous Rx's Medication Instructions Recorded Docusate [Colace] 100 mg PO BID #20 capsule 06/14/19 HYDROcodone/APAP 5-325MG [[place] 1 tab PO Q6HR PRN #10 tab 06/14/19 5-325] Ibuprofen [Motrin] 600 mg PO Q6HR PRN #40 day 08/28/20 Allergies Allergy/AdvReac Type Severity Reaction Status Date / Time ketorolac Allergy Rash/Hives Verified 08/28/20 11:19 Penicillins Allergy Rash/Hives Verified 08/28/20 11:19 Review of Systems ROS Statement: Those systems with pertinent positive or pertinent negative responses have been documented in the HPI. ROS Other: All systems not noted in ROS Statement are negative. Past Medical History Past Medical History: No Reported History, GERD/Reflux History of Any Multi-Drug Resistant Organisms: None Reported Past Surgical History: Appendectomy, Section, Cholecystectomy Past Anesthesia/Blood Transfusion Reactions: No Reported Reaction Additional Past Anesthesia/Blood Transfusion Reaction / Comment(s): CLAUSTERPHOBIA Past Psychological History: No Psychological Hx Reported Smoking Status: Never smoker Past Alcohol Use History: Occasional Past Drug Use History: None Reported - Past Family History Mother Family Medical History: Diabetes Mellitus Father Family Medical History: No Reported History General Exam - General Exam Comments Initial Comments: General: The patient is awake and alert, in no distress, and does not appear acutely ill. Eye: extra-ocular movements are intact. There is normal conjunctiva bilaterally. No signs of icterus. Ears, nose, mouth and throat: There are moist mucous membranes and no oral lesions. Neck: The neck is supple, there is no tenderness or JVD. Cardiovascular: There is a regular rate and rhythm. No murmur, rub or gallop is appreciated. Respiratory: Lungs are clear to auscultation, respirations are non-labored, breath sounds are equal. No wheezes, stridor, rales, or rhonchi. Gastrointestinal: Soft on palpation. Mild tenderness to the right lower quadrants. Musculoskeletal: Normal ROM, no tenderness. Strength 5/5. Sensation intact Neurological: A&O x 3. CN II-XII intact, There are no obvious motor or sensory deficits. Coordination appears grossly intact. Speech is normal. Skin: Skin is warm and dry and no rashes or lesions are noted. Psychiatric: Cooperative, appropriate mood & affect, normal judgment. Limitations: no limitations Course Vital Signs 08/28/20 08/28/20 11:15 13:09 Temperature 98.6 F Pulse Rate 85 87 Respiratory 18 18 Rate Blood Pressure 110/67 118/81 O2 Sat by Pulse 99 97 Oximetry Medical Decision Making - Medical Decision Making Patient's ultrasound been reviewed and does show some fluid in the lower pelvis.. Or change in the left side with good waveform both the left and right ovaries. Patient labs been reviewed are unremarkable. She does not that she's had multiple CAT scans. At this time abdomen is soft on palpation feels comfortable being discharged home. His advised anti-inflammatories and to follow the family doctor the next 2 days. Advised return if symptoms increase or worsen. States understanding and is agreement. - Lab Data Result diagrams: 08/28/20 11:52 08/28/20 11:52 Lab Results 08/28/20 08/28/20 08/28/20 Range/Units 11:52 11:52 11:52 WBC 10.3 (3.8-10.6) k/uL RBC 5.11 (3.80-5.40) m/uL Hgb 12.9 (11.4-16.0) gm/dL Hct 40.5 (34.0-46.0) % MCV 79.2 L (80.0-100.0) fL MCH 25.3 (25.0-35.0) pg MCHC 31.9 (31.0-37.0) g/dL RDW 13.9 (11.5-15.5) % Plt Count 326 (150-450) k/uL MPV 8.1 Neutrophils % 64 % Lymphocytes % 26 % Monocytes % 6 % Eosinophils % 2 % Basophils % 1 % Neutrophils # 6.5 (1.3-7.7) k/uL Lymphocytes # 2.6 (1.0-4.8) k/uL Monocytes # 0.6 (0-1.0) k/uL Eosinophils # 0.2 (0-0.7) k/uL Basophils # 0.1 (0-0.2) k/uL Sodium (137-145) mmol/L Potassium (3.5-5.1) mmol/L Chloride (98-107) mmol/L Carbon Dioxide (22-30) mmol/L Anion Gap mmol/L BUN (7-17) mg/dL Creatinine (0.52-1.04) mg/dL Est GFR (CKD-EPI)AfAm (>60 ml/min/1.73 sqM) Est GFR (CKD-EPI)NonAf (>60 ml/min/1.73 sqM) Glucose (74-99) mg/dL Calcium (8.4-10.2) mg/dL Total Bilirubin (0.2-1.3) mg/dL AST (14-36) U/L ALT (4-34) U/L Alkaline Phosphatase (38-126) U/L Total Protein (6.3-8.2) g/dL Albumin (3.5-5.0) g/dL Amylase (30-110) U/L Lipase (23-300) U/L Urine Color Yellow Urine Appearance Clear (Clear) Urine pH 6.5 (5.0-8.0) Ur Specific [place] 1.021 (1.001-1.035) Urine Protein Negative (Negative) Urine Glucose (UA) Negative (Negative) Urine Ketones Negative (Negative) Urine Blood Moderate H (Negative) Urine Nitrite Negative (Negative) Urine Bilirubin Negative (Negative) Urine Urobilinogen <2.0 (<2.0) mg/dL Ur Leukocyte Esterase Negative (Negative) Urine RBC 6 H (0-5) /hpf Urine WBC 2 (0-5) /hpf Ur Squamous Epith Cells 6 H (0-4) /hpf Urine Mucus Rare H (None) /hpf Urine HCG, Qual Not Detected (Not Detectd) 08/28/20 Range/Units 11:52 WBC (3.8-10.6) k/uL RBC (3.80-5.40) m/uL Hgb (11.4-16.0) gm/dL Hct (34.0-46.0) % MCV (80.0-100.0) fL MCH (25.0-35.0) pg MCHC (31.0-37.0) g/dL RDW (11.5-15.5) % Plt Count (150-450) k/uL MPV Neutrophils % % Lymphocytes % % Monocytes % % Eosinophils % % Basophils % % Neutrophils # (1.3-7.7) k/uL Lymphocytes # (1.0-4.8) k/uL Monocytes # (0-1.0) k/uL Eosinophils # (0-0.7) k/uL Basophils # (0-0.2) k/uL Sodium 138 (137-145) mmol/L Potassium 4.4 (3.5-5.1) mmol/L Chloride 101 (98-107) mmol/L Carbon Dioxide 27 (22-30) mmol/L Anion Gap 10 mmol/L BUN 21 H (7-17) mg/dL Creatinine 0.72 (0.52-1.04) mg/dL Est GFR (CKD-EPI)AfAm >90 (>60 ml/min/1.73 sqM) Est GFR (CKD-EPI)NonAf >90 (>60 ml/min/1.73 sqM) Glucose 97 (74-99) mg/dL Calcium 9.5 (8.4-10.2) mg/dL Total Bilirubin 0.8 (0.2-1.3) mg/dL AST 24 (14-36) U/L ALT 16 (4-34) U/L Alkaline Phosphatase 81 (38-126) U/L Total Protein 7.7 (6.3-8.2) g/dL Albumin 4.3 (3.5-5.0) g/dL Amylase 80 (30-110) U/L Lipase 88 (23-300) U/L Urine Color Urine Appearance (Clear) Urine pH (5.0-8.0) Ur Specific [place] (1.001-1.035) Urine Protein (Negative) Urine Glucose (UA) (Negative) Urine Ketones (Negative) Urine Blood (Negative) Urine Nitrite (Negative) Urine Bilirubin (Negative) Urine Urobilinogen (<2.0) mg/dL Ur Leukocyte Esterase (Negative) Urine RBC (0-5) /hpf Urine WBC (0-5) /hpf Ur Squamous Epith Cells (0-4) /hpf Urine Mucus (None) /hpf Urine HCG, Qual (Not Detectd) Disposition Clinical Impression: Abdominal pain Disposition: HOME SELF-CARE Condition: Good Instructions (If sedation given, give patient instructions): Abdominal Pain (ED) Additional Instructions: Please use medication as discussed. Please follow-up with family doctor in the next 2 days. Please return to emergency room if the symptoms increase or worsen or for any other concerns. Prescriptions: Ibuprofen [Motrin] 600 mg PO Q6HR PRN #40 day PRN Reason: Pain Is patient prescribed a controlled substance at d/c from ED?: No Referrals: Guillermina Alvarez MD [Primary Care Provider] - 1-2 days Time of Disposition: 13:25
[2020-08-28 12:10] LABS: Basophils # (A) 0.1 k/uL (0-0.2); Basophils % (A) 1 %; Eosinophils # (A) 0.2 k/uL (0-0.7); Eosinophils % (A) 2 %; HCT 40.5 % (34.0-46.0); HGB 12.9 gm/dL (11.4-16.0); Lymphocytes # (A) 2.6 k/uL (1.0-4.8); Lymphocytes % (A) 26 %; MCH 25.3 pg (25.0-35.0); MCHC 31.9 g/dL (31.0-37.0); MCV 79.2 fL (80.0-100.0); Mean Platelet Volume 8.1; Monocytes # (A) 0.6 k/uL (0-1.0); Monocytes % (A) 6 %; Neutrophils # (A) 6.5 k/uL (1.3-7.7); Neutrophils % (A) 64 %; Platelet Count 326 k/uL (150-450); RBC 5.11 m/uL (3.80-5.40); RDW 13.9 % (11.5-15.5); WBC 10.3 k/uL (3.8-10.6)
[2020-08-28 12:16] LABS: Appearance,Urine Clear (Clear); Bilirubin,Urine Negative (Negative); Blood,Urine Moderate (Negative); Color,Urine Yellow; Glucose,Urine (UA) Negative (Negative); Ketones,Urine Negative (Negative); Leukocyte Esterase,Urine Negative (Negative); Mucus,Urine Rare /hpf; Nitrite,Urine Negative (Negative); PH, Urine 6.5 (5.0-8.0); Protein,Urine Negative (Negative); RBC,Urine 6 /hpf (0-5); Specific Gravity,Urine 1.021 (1.001-1.035); Squamous Epithelial Cell,Urine 6 /hpf (0-4); Urobilinogen,Urine <2.0 mg/dL (<2.0); WBC,Urine 2 /hpf (0-5)
[2020-08-28 12:21] LABS: Potassium 4.4 mmol/L (3.5-5.1)
[2020-08-28 12:22] LABS: ALT 16 U/L (4-34); AST 24 U/L (14-36); African American GFR (CKD) >90 (>60 ml/min/1.73 sqM); Albumin 4.3 g/dL (3.5-5.0); Alkaline Phosphatase 81 U/L (38-126); Amylase 80 U/L (30-110); Anion Gap 10 mmol/L; Blood Urea Nitrogen 21 mg/dL (7-17); Calcium 9.5 mg/dL (8.4-10.2); Carbon Dioxide 27 mmol/L (22-30); Chloride 101 mmol/L (98-107); Glucose 97 mg/dL (74-99); Lipase 88 U/L (23-300); Non-African American GFR(CKD) >90 (>60 ml/min/1.73 sqM); Sodium 138 mmol/L (137-145); Total Bilirubin 0.8 mg/dL (0.2-1.3); Total Protein 7.7 g/dL (6.3-8.2)
--- NOTE | 2020-08-28 13:10 | US ---
EXAMINATION TYPE: US transvaginal DATE OF EXAM: 08/28/2020 COMPARISON: 09/08/2019 CLINICAL HISTORY: abd pain. History of TECHNIQUE: . Transabdominal sonographic images of the pelvis were acquired. Transvaginal sonographi c images were medically necessary to better assess the following anatomy: ovaries Date of LMP: 07/11/2020 EXAM MEASUREMENTS: Uterus: 8.9 x 4.1 x 4.5 cm Endometrial Stripe: 1.0 cm Right Ovary: 3.1 x 1.2 x 2.4 cm Left Ovary: 2.9 x 1.2 x 1.8 cm 1. Uterus: Anteverted wnl 2. Endometrium: wnl 3. Right Ovary: wnl 4. Left Ovary: Follicle visualized, wnl Spectral, color and waveform doppler imaging shows arterial and venous flow within the ovaries. 5. Bilateral Adnexa: wnl 6. Posterior cul-de-sac: Tiny amount of free fluid visualized IMPRESSION: Small amount of free fluid noted in the pelvis.
[2020-08-28 14:15] VITALS: BP 114/66; PULSE 67; RESP 16
== END 2020-08-28 14:16 | disposition home or self-care (01) ==
LOC: EC 11:02
DX: R10.30 Lower abdominal pain, unspecified (principal); R93.41 Abnormal radiologic findings on diagnostic imaging of renal pelvis, ureter, or bladder; Z88.6 Allergy status to analgesic agent; Z88.0 Allergy status to penicillin; Z90.49 Acquired absence of other specified parts of digestive tract; Z98.890 Other specified postprocedural states; Z87.19 Personal history of other diseases of the digestive system
CPT/HCPCS: 36415; 76830; 80053; 81001; 81025; 82150; 83690; 85025; 93975; 96360; 99284

== ENCOUNTER → 2020-11-24 | Outpatient (CLI) | payer OTHER ==
--- NOTE | 2020-11-27 10:54 | MM ---
Reason for exam: screening (asymptomatic). Last mammogram was performed 2 years and 3 months ago. Physical Findings: A clinical breast exam by your physician is recommended on an annual basis and results should be correlated with mammographic findings. MG Screening Mammo w CAD Bilateral CC and MLO view(s) were taken. Prior study comparison: September 02, 2018, left breast MG work up mamm w CAD LT. September 02, 2018, bilateral MG screening mammo w CAD. The breast tissue is heterogeneously dense. This may lower the sensitivity of mammography. Enlarging nodule zone C upper outer left breast. ASSESSMENT: Incomplete: need additional imaging evaluation, BI-RAD 0 RECOMMENDATION: Special view mammogram and ultrasound of the left breast. [facility] will attempt to contact patient to return for supplemental views and ultrasound.
== END | disposition home or self-care (01) ==
LOC: RADMAMWWP 16:36
PROVIDERS: ATTEND Family Medicine
DX: Z12.31 Encounter for screening mammogram for malignant neoplasm of breast (principal)
CPT/HCPCS: 77067

== ENCOUNTER → 2020-11-28 | Outpatient (CLI) | payer OTHER ==
--- NOTE | 2020-11-28 09:16 | MM ---
Reason for exam: additional evaluation requested from abnormal screening. Last mammogram was performed less than 1 month ago. Physical Findings: Nurse did not find any significant physical abnormalities on exam. MG Work Up Mamm w CAD LT Spot compression CC, spot compression MLO, and LM view(s) were taken of the left breast. Prior study comparison: November 24, 2020, bilateral MG screening mammo w CAD. September 02, 2018, left breast MG work up mamm w CAD LT. The breast tissue is heterogeneously dense. This may lower the sensitivity of mammography. Finding: There is a 9 mm circumscribed oval mass in the outer quadrant, middle position of the left breast persists on additional view. These results were verbally communicated with the patient and result sheet given to the patient on 11/28/20. ASSESSMENT: Incomplete: need additional imaging evaluation, BI-RAD 0 RECOMMENDATION: Ultrasound of the left breast.
--- NOTE | 2020-11-28 09:18 | USB ---
Reason for exam: additional evaluation requested from abnormal screening. US Breast Workup Limited LT Technologist: Madhavi Walker Left limited breast ultrasound including focal area of concern, retroareolar and axilla demonstrates a 0.7 x 1.0 x 0.5cm oval, mixed lesion at 9 o'clock, fairly stable from 09/02/18. These results were verbally communicated with the patient and result sheet given to the patient on 11/28/20. ASSESSMENT: Benign, BI-RAD 2 RECOMMENDATION: Follow-up diagnostic mammogram of both breasts in 1 year.
== END | disposition home or self-care (01) ==
LOC: RADMAMWWP 07:34
PROVIDERS: ATTEND Family Medicine
DX: N63.25 Unspecified lump in the left breast, overlapping quadrants (principal)
CPT/HCPCS: 77065

== ENCOUNTER 2020-11-30 03:33 | Emergency (ER) | payer OTHER ==
[2020-11-30 03:42] VITALS: BP 113/74; PULSE 77; RESP 16; TEMP 97.1
[2020-11-30] MEDS ORDERED: SODIUM CHLORIDE 0.9% 1,000 ML IV STA (04:11)
--- NOTE | 2020-11-30 04:13 | ED ---
SOB HPI - General Chief Complaint: Shortness of Breath Stated Complaint: Chest Pain Time Seen by Provider: 11/30/20 03:35 Source: patient, RN notes reviewed, old records reviewed Mode of arrival: ambulatory Limitations: no limitations - History of Present Illness Initial Comments: This is a 40-year-old female DF for evaluation. Patient with us today for evaluation of chest pain some anxiety patient concern for shortness of breath, covert 1 month ago. Otherwise no recurrent fevers. No travel history just recent of sick contacts. Patient does have some shortness of breath sounds anxiety maybe some concern for blood clot. No other system medical history MD Complaint: shortness of breath, pain with inspiration -: days(s) Severity: mild Severity scale (1-10): 2 Consistency: constant Improves With: nothing Worsens With: nothing Context: recent URI, other (Patient did have coronavirus one month ago) Associated Symptoms: pain with inspiration Treatments Prior to Arrival: none - Related Data Home Medications Medication Instructions Recorded Confirmed Omeprazole 20 mg PO BID 08/28/20 08/28/20 Previous Rx's Medication Instructions Recorded Ibuprofen [Motrin] 600 mg PO Q6HR PRN #40 day 08/28/20 Allergies Allergy/AdvReac Type Severity Reaction Status Date / Time ketorolac Allergy Rash/Hives Verified 08/28/20 14:01 Penicillins Allergy Rash/Hives Verified 08/28/20 14:01 Review of Systems ROS Statement: Those systems with pertinent positive or pertinent negative responses have been documented in the HPI. ROS Other: All systems not noted in ROS Statement are negative. Past Medical History Past Medical History: GERD/Reflux History of Any Multi-Drug Resistant Organisms: None Reported Past Surgical History: Appendectomy, Section, Cholecystectomy Past Anesthesia/Blood Transfusion Reactions: No Reported Reaction Additional Past Anesthesia/Blood Transfusion Reaction / Comment(s): CLAUSTERPHOBIA Past Psychological History: No Psychological Hx Reported Smoking Status: Never smoker Past Alcohol Use History: Occasional Past Drug Use History: None Reported - Past Family History Mother Family Medical History: Diabetes Mellitus Father Family Medical History: No Reported History General Exam Limitations: no limitations General appearance: alert, in no apparent distress, anxious Head exam: Present: atraumatic, normocephalic, normal inspection Eye exam: Present: normal appearance, PERRL, EOMI. Absent: scleral icterus, conjunctival injection, periorbital swelling ENT exam: Present: normal exam, mucous membranes moist Neck exam: Present: normal inspection. Absent: tenderness, meningismus, lymphadenopathy Respiratory exam: Present: normal lung sounds bilaterally. Absent: respiratory distress, wheezes, rales, rhonchi, stridor Cardiovascular Exam: Present: regular rate, normal rhythm, normal heart sounds. Absent: systolic murmur, diastolic murmur, rubs, gallop, clicks GI/Abdominal exam: Present: soft, normal bowel sounds. Absent: distended, tenderness, guarding, rebound, rigid Extremities exam: Present: normal inspection, full ROM, normal capillary refill. Absent: tenderness, pedal edema, joint swelling, calf tenderness Back exam: Present: normal inspection Neurological exam: Present: alert, oriented X3, CN II-XII intact Psychiatric exam: Present: normal affect, normal mood Skin exam: Present: warm, dry, intact, normal color. Absent: rash Course Vital Signs 11/30/20 03:40 Temperature 97.1 F L Pulse Rate 77 Respiratory 16 Rate Blood Pressure 113/74 O2 Sat by Pulse 97 Oximetry - Reevaluation(s) Reevaluation #1: medical record is reviewed patient has improved symptoms here in the ER patient informed of results and questions answered Medical Decision Making - Medical Decision Making 40 female with some shortness of breath COVID symptoms testing [address] chest negative for PE patient can be discharged home - Lab Data Result diagrams: 11/30/20 04:18 11/30/20 04:18 Lab Results 11/30/20 11/30/20 11/30/20 Range/Units 04:18 04:18 04:18 WBC 14.5 H (3.8-10.6) k/uL RBC 5.01 (3.80-5.40) m/uL Hgb 12.4 (11.4-16.0) gm/dL Hct 39.6 (34.0-46.0) % MCV 78.9 L (80.0-100.0) fL MCH 24.7 L (25.0-35.0) pg MCHC 31.3 (31.0-37.0) g/dL RDW 14.3 (11.5-15.5) % Plt Count 363 (150-450) k/uL MPV 8.4 Neutrophils % 63 % Lymphocytes % 29 % Monocytes % 5 % Eosinophils % 1 % Basophils % 1 % Neutrophils # 9.0 H (1.3-7.7) k/uL Lymphocytes # 4.2 (1.0-4.8) k/uL Monocytes # 0.8 (0-1.0) k/uL Eosinophils # 0.2 (0-0.7) k/uL Basophils # 0.1 (0-0.2) k/uL PT 10.0 (9.0-12.0) sec INR 0.9 (<1.2) APTT 22.4 (22.0-30.0) sec D-Dimer <0.17 (<0.60) mg/L FEU Sodium 137 (137-145) mmol/L Potassium 4.1 (3.5-5.1) mmol/L Chloride 106 (98-107) mmol/L Carbon Dioxide 26 (22-30) mmol/L Anion Gap 5 mmol/L BUN 23 H (7-17) mg/dL Creatinine 0.66 (0.52-1.04) mg/dL Est GFR (CKD-EPI)AfAm >90 (>60 ml/min/1.73 sqM) Est GFR (CKD-EPI)NonAf >90 (>60 ml/min/1.73 sqM) Glucose 95 (74-99) mg/dL Calcium 9.4 (8.4-10.2) mg/dL Magnesium 1.9 (1.6-2.3) mg/dL Total Bilirubin 0.4 (0.2-1.3) mg/dL AST 19 (14-36) U/L ALT 13 (4-34) U/L Alkaline Phosphatase 98 (38-126) U/L Troponin I (0.000-0.034) ng/mL NT-Pro-B Natriuret Pep pg/mL Total Protein 7.2 (6.3-8.2) g/dL Albumin 4.1 (3.5-5.0) g/dL Lipase 155 (23-300) U/L 11/30/20 11/30/20 Range/Units 04:18 04:18 WBC (3.8-10.6) k/uL RBC (3.80-5.40) m/uL Hgb (11.4-16.0) gm/dL Hct (34.0-46.0) % MCV (80.0-100.0) fL MCH (25.0-35.0) pg MCHC (31.0-37.0) g/dL RDW (11.5-15.5) % Plt Count (150-450) k/uL MPV Neutrophils % % Lymphocytes % % Monocytes % % Eosinophils % % Basophils % % Neutrophils # (1.3-7.7) k/uL Lymphocytes # (1.0-4.8) k/uL Monocytes # (0-1.0) k/uL Eosinophils # (0-0.7) k/uL Basophils # (0-0.2) k/uL PT (9.0-12.0) sec INR (<1.2) APTT (22.0-30.0) sec D-Dimer (<0.60) mg/L FEU Sodium (137-145) mmol/L Potassium (3.5-5.1) mmol/L Chloride (98-107) mmol/L Carbon Dioxide (22-30) mmol/L Anion Gap mmol/L BUN (7-17) mg/dL Creatinine (0.52-1.04) mg/dL Est GFR (CKD-EPI)AfAm (>60 ml/min/1.73 sqM) Est GFR (CKD-EPI)NonAf (>60 ml/min/1.73 sqM) Glucose (74-99) mg/dL Calcium (8.4-10.2) mg/dL Magnesium (1.6-2.3) mg/dL Total Bilirubin (0.2-1.3) mg/dL AST (14-36) U/L ALT (4-34) U/L Alkaline Phosphatase (38-126) U/L Troponin I <0.012 (0.000-0.034) ng/mL NT-Pro-B Natriuret Pep 23 pg/mL Total Protein (6.3-8.2) g/dL Albumin (3.5-5.0) g/dL Lipase (23-300) U/L - EKG Data -: EKG Interpreted by Me (EKG is sinus rhythm 70, CO 158 QRS 82 QTC 432) Disposition Clinical Impression: Chest pain Disposition: HOME SELF-CARE Condition: Good Instructions (If sedation given, give patient instructions): Chest Pain (ED) Is patient prescribed a controlled substance at d/c from ED?: No Referrals: Guillermina Alvarez MD [Primary Care Provider] - 1-2 days
[2020-11-30 04:59] LABS: Basophils # (A) 0.1 k/uL (0-0.2); Basophils % (A) 1 %; Eosinophils # (A) 0.2 k/uL (0-0.7); Eosinophils % (A) 1 %; HCT 39.6 % (34.0-46.0); HGB 12.4 gm/dL (11.4-16.0); Lymphocytes # (A) 4.2 k/uL (1.0-4.8); Lymphocytes % (A) 29 %; MCH 24.7 pg (25.0-35.0); MCHC 31.3 g/dL (31.0-37.0); MCV 78.9 fL (80.0-100.0); Mean Platelet Volume 8.4; Monocytes # (A) 0.8 k/uL (0-1.0); Monocytes % (A) 5 %; Neutrophils % (A) 63 %; Platelet Count 363 k/uL (150-450); RBC 5.01 m/uL (3.80-5.40); RDW 14.3 % (11.5-15.5); WBC 14.5 k/uL (3.8-10.6)
[2020-11-30 05:18] LABS: ALT 13 U/L (4-34); AST 19 U/L (14-36); African American GFR (CKD) >90 (>60 ml/min/1.73 sqM); Albumin 4.1 g/dL (3.5-5.0); Alkaline Phosphatase 98 U/L (38-126); Anion Gap 5 mmol/L; Blood Urea Nitrogen 23 mg/dL (7-17); Calcium 9.4 mg/dL (8.4-10.2); Carbon Dioxide 26 mmol/L (22-30); Chloride 106 mmol/L (98-107); Glucose 95 mg/dL (74-99); Lipase 155 U/L (23-300); Magnesium 1.9 mg/dL (1.6-2.3); Non-African American GFR(CKD) >90 (>60 ml/min/1.73 sqM); Potassium 4.1 mmol/L (3.5-5.1); Sodium 137 mmol/L (137-145); Total Bilirubin 0.4 mg/dL (0.2-1.3); Total Protein 7.2 g/dL (6.3-8.2)
[2020-11-30 05:22] LABS: D-Dimer <0.17 mg/L FEU (<0.60); INR 0.9 (<1.2); Partial Thromboplastin Time 22.4 sec (22.0-30.0)
--- NOTE | 2020-11-30 05:36 | CT ---
EXAM: CT Angiography Chest With Intravenous Contrast CLINICAL HISTORY: ITS.REASON CT Reason: PE TECHNIQUE: Axial computed tomographic angiography images of the chest with intravenous contrast. CTDI is 20.884 mGy and DLP is 418.20 mGy-cm. This CT exam was performed using one or more of the following dose reduction techniques: automated exposure control, adjustment of the mA and/or kV according to patient size, and/or use of iterative reconstruction technique. MIP reconstructed images were created and reviewed. COMPARISON: 08/16/2020 FINDINGS: Pulmonary arteries: No evidence for pulmonary embolism. Aorta: No acute findings. No thoracic aortic aneurysm. Lungs: Minimal dependent subsegmental changes in the posterior lung bases. No focal consolidation. A stable appearing rounded pulmonary nodule is noted in the anterolateral left upper lobe with similar partial internal calcification is noted measuring 13 mm. Pleural space: Unremarkable. No significant effusion. No pneumothorax. Heart: Unremarkable. No cardiomegaly. No significant pericardial effusion. Bones/joints: No acute fracture. No dislocation. Soft tissues: Unremarkable. Lymph nodes: Unremarkable. No enlarged lymph nodes. IMPRESSION: 1. No evidence for pulmonary embolism. 2. Minimal dependent subsegmental atelectatic changes in the posterior lung bases. No focal consolidation. Incidental stable partially calcified pulmonary nodule in the left upper lobe. No pleural effusion or pneumothorax.
== END 2020-11-30 06:14 | disposition home or self-care (01) ==
LOC: EC 03:33
DX: R07.9 Chest pain, unspecified (principal); K21.9 Gastro-esophageal reflux disease without esophagitis; Z90.49 Acquired absence of other specified parts of digestive tract
CPT/HCPCS: 99285 ×2; 36415; 93005; 85379; 83880; 80053; 83690; 83735; 84484; 85025; 85610; 85730; 71275; Q9967

== ENCOUNTER 2022-08-30 16:13 | Emergency (ER) | payer OTHER ==
[2022-08-30 16:19] VITALS: TEMP 98.2
[2022-08-30] MEDS ORDERED: SODIUM CHLORIDE 0.9% 1,000 ML IV STA (16:30)
[2022-08-30] MEDS ORDERED: FAMOTIDINE 20 MG/2 ML VIAL IV STA (16:31)
[2022-08-30 17:03] LABS: Basophils # (A) 0.1 k/uL (0-0.2); Basophils % (A) 1 %; Eosinophils # (A) 0.2 k/uL (0-0.7); Eosinophils % (A) 1 %; HCT 40.8 % (34.0-46.0); Lymphocytes # (A) 2.9 k/uL (1.0-4.8); Lymphocytes % (A) 25 %; MCH 25.9 pg (25.0-35.0); MCHC 31.8 g/dL (31.0-37.0); MCV 81.5 fL (80.0-100.0); Mean Platelet Volume 8.8; Monocytes # (A) 0.6 k/uL (0-1.0); Monocytes % (A) 5 %; Neutrophils # (A) 7.9 k/uL (1.3-7.7); Neutrophils % (A) 67 %; Platelet Count 357 k/uL (150-450); RDW 14.1 % (11.5-15.5); WBC 11.9 k/uL (3.8-10.6)
[2022-08-30 17:07] LABS: Appearance,Urine Cloudy (Clear); Bilirubin,Urine Negative (Negative); Blood,Urine Moderate (Negative); Color,Urine Yellow; Glucose,Urine (UA) Negative (Negative); Ketones,Urine Negative (Negative); Leukocyte Esterase,Urine Large (Negative); Mucus,Urine Rare /hpf; Nitrite,Urine Negative (Negative); Protein,Urine Negative (Negative); RBC,Urine 23 /hpf (0-5); Specific Gravity,Urine 1.027 (1.001-1.035); Squamous Epithelial Cell,Urine 10 /hpf (0-4); Urobilinogen,Urine <2.0 mg/dL (<2.0); WBC,Urine 5 /hpf (0-5)
--- NOTE | 2022-08-30 17:07 | XR ---
EXAMINATION TYPE: XR KUB DATE OF EXAM: 08/30/2022 5:03 PM INDICATION: Patient age:Female; 42 years old; Reason for study: abdominal pain; COMPARISON: 08/30/2022 TECHNIQUE: One radiographic view of the abdomen was obtained. FINDINGS: The bowel gas pattern is nonspecific without dilated loops of small or large bowel. There i s no evidence for organomegaly or pneumoperitoneum. The osseous structures are intact. No abnormal calcifications are present. Fecal material and gas are demonstrated throughout the colon and rectum. Bilateral tubal ligation clips are present. IMPRESSION: Nonspecific bowel gas pattern without radiographic evidence for acute process.
[2022-08-30 17:13] LABS: ALT 21 U/L (4-34); AST 26 U/L (14-36); African American GFR (CKD) >90 (>60 ml/min/1.73 sqM); Albumin 4.6 g/dL (3.5-5.0); Alkaline Phosphatase 93 U/L (38-126); Amylase 88 U/L (30-110); Anion Gap 7 mmol/L; Blood Urea Nitrogen 25 mg/dL (7-17); Calcium 9.5 mg/dL (8.4-10.2); Carbon Dioxide 28 mmol/L (22-30); Chloride 103 mmol/L (98-107); Glucose 96 mg/dL (74-99); Lipase 131 U/L (23-300); Non-African American GFR(CKD) >90 (>60 ml/min/1.73 sqM); Potassium 4.1 mmol/L (3.5-5.1); Sodium 138 mmol/L (137-145); Total Bilirubin 0.4 mg/dL (0.2-1.3); Total Protein 8.2 g/dL (6.3-8.2)
[2022-08-30] MEDS ORDERED: MAG HYDROX/AL HYDROX/SIMETH 30 ML, HYOSCYAMINE ELIXIR 10 ML, LIDOCAINE VISCOUS 2% 10 ML PO STA ×3 (17:17)
[2022-08-30 17:41] VITALS: BP 111/79
--- NOTE | 2022-08-30 17:41 | ED ---
Abdominal Pain HPI - General Chief Complaint: Abdominal Pain Stated Complaint: abd pain Time Seen by Provider: 08/30/22 16:22 Source: patient Mode of arrival: ambulatory Limitations: no limitations - History of Present Illness Initial Comments: Patient is a 42-year-old female presenting with chief complaint of abdominal pain. Pain is located and has been present for the last 2 weeks. She notes that it is worse after eating. She states that it is a constant pain, not sharp in nature. History of cholecystectomy and appendectomy. She denies any nausea or vomiting. No diarrhea, hematochezia, melena. No chest pain, difficulty breathing, fever, chills. No rash. No pelvic pain, vaginal discharge, vaginal bleeding. - Related Data Home Medications Medication Instructions Recorded Confirmed Omeprazole 20 mg PO BID 08/28/20 08/28/20 Previous Rx's Medication Instructions Recorded Ibuprofen [Motrin] 600 mg PO Q6HR PRN #40 day 08/28/20 Dicyclomine [Bentyl] 20 mg PO QID #20 tablet 08/30/22 Allergies Allergy/AdvReac Type Severity Reaction Status Date / Time ketorolac Allergy Rash/Hives Verified 08/30/22 16:19 Penicillins Allergy Rash/Hives Verified 08/30/22 16:19 Review of Systems ROS Statement: Those systems with pertinent positive or pertinent negative responses have been documented in the HPI. ROS Other: All systems not noted in ROS Statement are negative. Past Medical History Past Medical History: GERD/Reflux History of Any Multi-Drug Resistant Organisms: None Reported Past Surgical History: Appendectomy, Section, Cholecystectomy Past Anesthesia/Blood Transfusion Reactions: No Reported Reaction Additional Past Anesthesia/Blood Transfusion Reaction / Comment(s): CLAUSTERPHOBIA Past Psychological History: No Psychological Hx Reported Smoking Status: Never smoker Past Alcohol Use History: Occasional Past Drug Use History: None Reported - Past Family History Mother Family Medical History: Diabetes Mellitus Father Family Medical History: No Reported History General Exam Limitations: no limitations General appearance: alert, in no apparent distress Head exam: Present: atraumatic, normocephalic, normal inspection Eye exam: Present: normal appearance Neck exam: Present: normal inspection, full ROM Respiratory exam: Present: normal lung sounds bilaterally. Absent: respiratory distress, wheezes, rales, rhonchi, stridor Cardiovascular Exam: Present: regular rate, normal rhythm, normal heart sounds. Absent: systolic murmur, diastolic murmur, rubs, gallop, clicks GI/Abdominal exam: Present: soft, tenderness (Mild tenderness over the epigastric region). Absent: distended, guarding, rebound, rigid Neurological exam: Present: alert, oriented X3, CN II-XII intact Psychiatric exam: Present: normal affect, normal mood Skin exam: Present: warm, dry, intact, normal color. Absent: rash Course Vital Signs 08/30/22 08/30/22 08/30/22 16:17 16:51 17:00 Temperature 98.2 F Pulse Rate 79 67 Respiratory 18 14 Rate Blood Pressure 116/67 119/79 O2 Sat by Pulse 99 100 Oximetry 08/30/22 08/30/22 17:30 18:00 Temperature Pulse Rate 77 67 Respiratory 17 19 Rate Blood Pressure 111/79 111/79 O2 Sat by Pulse 99 99 Oximetry Medical Decision Making - Medical Decision Making Was pt. sent in by a medical professional or institution (, PA, POULTRY [employer]ER, urgent care, hospital, or halfway...) When possible be specific @ -No Did you speak to anyone other than the patient for history (EMS, parent, family, police, friend...)? What history was obtained from this source @ -No Did you review nursing and triage notes (agree or disagree)? Why? @ -I reviewed and agree with nursing and triage notes Were old charts reviewed (outside hosp., previous admission, EMS record, old EKG, old radiological studies, urgent care reports/EKG's, halfway records)? Report findings @ -Previous labs reviewed Differential Diagnosis (chest pain, altered mental status, abdominal pain women, abdominal pain men, vaginal bleeding, weakness, fever, dyspnea, syncope, headache, dizziness, GI bleed, back pain, seizure, CVA, palpatations, mental health)? @ -MDM Differential Abdominal Pain Women: Appendicitis, Cholecystitis, pancreatitis, hepatitis, UTI, gastroenteritis, bowel obstruction, constipation, peptic ulcer disease... This is not meant to be an all-inclusive list EKG interpreted by me (3pts min.). @ -As above X-rays interpreted by me (1pt min.). @ -Nonspecific bowel gas pattern without radiographic evidence for acute proces s CT interpreted by me (1pt min.). @ -None done U/S interpreted by me (1pt. min.). @ -None done What testing was considered but not performed or refused? (CT, X-rays, U/S, labs)? Why? @ -None What meds were considered but not given or refused? Why? @ -None Did you discuss the management of the patient with other professionals (hannah wilkinson i.e. , PA, POULTRY BUYER, lab, RT, psych nurse, social psychologist, retail wireless sales representative, teacher, casino surveillance officer, director of casework department)? Give summary @ -No Was smoking cessation discussed for >3mins.? @ -No Was critical care preformed (if so, how long)? @ -No Were there social determinants of health that impacted care today? How? (Homelessness, low income, unemployed, alcoholism, drug addiction, transpor tation, low edu. Level, literacy, decrease access to med. care, prison, rehab)? @ -No Was there de-escalation of care discussed even if they declined (Discuss DNR or withdrawal of care, Hospice)? DNR status @ -No What co-morbidities impacted this encounter? (DM, HTN, Smoking, COPD, CAD, Cancer, CVA, ARF, Chemo, Hep., AIDS, mental health diagnosis, sleep apnea, morbid obesity)? @ -None Was patient admitted / discharged? Hospital course, mention meds given and route, prescriptions, significant lab abnormalities, going to OR and other pertinent info. @ -Patient is a 42-year-old female presenting with chief complaint of epigastric pain for the last 2 weeks worse after eating. On physical examination there is some minor tenderness to palpation of the epigastric region. EKG shows no ischemic changes. Amylase and lipase are WNL. WBC 11.9. Urine shows moderate blood, patient has history of hematuria based on previous records. Urine appears contaminated, we'll send for culture. KUB x-ray shows nonacute abdomen. Patient reports some improvement after Pepcid, GI cocktail, Bentyl. Pain is likely related to gastritis, educated patient on treatment. Follow-up with PCP. Report back to ER with any new or worsening symptoms. Discussed return parameters and answered all questions. Patient conveyed verbal understanding and agreed to the plan. I discussed this case in detail with my attending Dr. Reynaga Undiagnosed new problem with uncertain prognosis? @ -No Drug Therapy requiring intensive monitoring for toxicity (Heparin, Nitro, Insulin, Cardizem)? @ -No Were any procedures done? @ -No Diagnosis/symptom? @ -Gastritis Acute, or Chronic, or Acute on Chronic? @ -Acute Uncomplicated (without systemic symptoms) or Complicated (systemic symptoms)? @ -Uncomplicated Side effects of treatment? @ -No Exacerbation, Progression, or Severe Exacerbation? @ -No - Lab Data Result diagrams: 08/30/22 16:47 08/30/22 16:47 Lab Results 08/30/22 08/30/22 08/30/22 Range/Units 16:47 16:47 16:47 WBC 11.9 H (3.8-10.6) k/uL RBC 5.00 (3.80-5.40) m/uL Hgb 13.0 (11.4-16.0) gm/dL Hct 40.8 (34.0-46.0) % MCV 81.5 (80.0-100.0) fL MCH 25.9 (25.0-35.0) pg MCHC 31.8 (31.0-37.0) g/dL RDW 14.1 (11.5-15.5) % Plt Count 357 (150-450) k/uL MPV 8.8 Neutrophils % 67 % Lymphocytes % 25 % Monocytes % 5 % Eosinophils % 1 % Basophils % 1 % Neutrophils # 7.9 H (1.3-7.7) k/uL Lymphocytes # 2.9 (1.0-4.8) k/uL Monocytes # 0.6 (0-1.0) k/uL Eosinophils # 0.2 (0-0.7) k/uL Basophils # 0.1 (0-0.2) k/uL Sodium 138 (137-145) mmol/L Potassium 4.1 (3.5-5.1) mmol/L Chloride 103 (98-107) mmol/L Carbon Dioxide 28 (22-30) mmol/L Anion Gap 7 mmol/L BUN 25 H (7-17) mg/dL Creatinine 0.69 (0.52-1.04) mg/dL Est GFR (CKD-EPI)AfAm >90 (>60 ml/min/1.73 sqM) Est GFR (CKD-EPI)NonAf >90 (>60 ml/min/1.73 sqM) Glucose 96 (74-99) mg/dL Plasma Lactic Acid [place] 1.2 (0.7-2.0) mmol/L Calcium 9.5 (8.4-10.2) mg/dL Total Bilirubin 0.4 (0.2-1.3) mg/dL AST 26 (14-36) U/L ALT 21 (4-34) U/L Alkaline Phosphatase 93 (38-126) U/L Troponin I (0.000-0.034) ng/mL Total Protein 8.2 (6.3-8.2) g/dL Albumin 4.6 (3.5-5.0) g/dL Amylase 88 (30-110) U/L Lipase 131 (23-300) U/L Urine Color Urine Appearance (Clear) Urine pH (5.0-8.0) Ur Specific [place] (1.001-1.035) Urine Protein (Negative) Urine Glucose (UA) (Negative) Urine Ketones (Negative) Urine Blood (Negative) Urine Nitrite (Negative) Urine Bilirubin (Negative) Urine Urobilinogen (<2.0) mg/dL Ur Leukocyte Esterase (Negative) Urine RBC (0-5) /hpf Urine WBC (0-5) /hpf Ur Squamous Epith Cells (0-4) /hpf Urine Mucus (None) /hpf 08/30/22 08/30/22 Range/Units 16:47 16:47 WBC (3.8-10.6) k/uL RBC (3.80-5.40) m/uL Hgb (11.4-16.0) gm/dL Hct (34.0-46.0) % MCV (80.0-100.0) fL MCH (25.0-35.0) pg MCHC (31.0-37.0) g/dL RDW (11.5-15.5) % Plt Count (150-450) k/uL MPV Neutrophils % % Lymphocytes % % Monocytes % % Eosinophils % % Basophils % % Neutrophils # (1.3-7.7) k/uL Lymphocytes # (1.0-4.8) k/uL Monocytes # (0-1.0) k/uL Eosinophils # (0-0.7) k/uL Basophils # (0-0.2) k/uL Sodium (137-145) mmol/L Potassium (3.5-5.1) mmol/L Chloride (98-107) mmol/L Carbon Dioxide (22-30) mmol/L Anion Gap mmol/L BUN (7-17) mg/dL Creatinine (0.52-1.04) mg/dL Est GFR (CKD-EPI)AfAm (>60 ml/min/1.73 sqM) Est GFR (CKD-EPI)NonAf (>60 ml/min/1.73 sqM) Glucose (74-99) mg/dL Plasma Lactic Acid [place] (0.7-2.0) mmol/L Calcium (8.4-10.2) mg/dL Total Bilirubin (0.2-1.3) mg/dL AST (14-36) U/L ALT (4-34) U/L Alkaline Phosphatase (38-126) U/L Troponin I <0.012 (0.000-0.034) ng/mL Total Protein (6.3-8.2) g/dL Albumin (3.5-5.0) g/dL Amylase (30-110) U/L Lipase (23-300) U/L Urine Color Yellow Urine Appearance Cloudy H (Clear) Urine pH 6.0 (5.0-8.0) Ur Specific [place] 1.027 (1.001-1.035) Urine Protein Negative (Negative) Urine Glucose (UA) Negative (Negative) Urine Ketones Negative (Negative) Urine Blood Moderate H (Negative) Urine Nitrite Negative (Negative) Urine Bilirubin Negative (Negative) Urine Urobilinogen <2.0 (<2.0) mg/dL Ur Leukocyte Esterase Large H (Negative) Urine RBC 23 H (0-5) /hpf Urine WBC 5 (0-5) /hpf Ur Squamous Epith Cells 10 H (0-4) /hpf Urine Mucus Rare H (None) /hpf Disposition Clinical Impression: Gastritis Disposition: HOME SELF-CARE Condition: Good Instructions (If sedation given, give patient instructions): Gastritis (ED), Diet for Stomach Ulcers and Gastritis (ED) Additional Instructions: Follow-up with PCP. Report back to ER with any new or worsening symptoms. Take medication as prescribed. Take [id number] Pepcid as needed. Prescriptions: Dicyclomine [Bentyl] 20 mg PO QID #20 tablet Is patient prescribed a controlled substance at d/c from ED?: No Referrals: Guillermina Alvarez MD [Primary Care Provider] - 1-2 days Time of Disposition: 18:42
[2022-08-30] MEDS ORDERED: DICYCLOMINE 10 MG/ML 2 ML AMP IM STA (17:58)
[2022-08-30 18:31] VITALS: PULSE 67; RESP 19
== END 2022-08-30 19:01 | disposition home or self-care (01) ==
LOC: EC 16:13
DX: K29.70 Gastritis, unspecified, without bleeding (principal); K21.9 Gastro-esophageal reflux disease without esophagitis; Z79.899 Other long term (current) drug therapy; Z88.0 Allergy status to penicillin; Z88.6 Allergy status to analgesic agent; Z90.49 Acquired absence of other specified parts of digestive tract
CPT/HCPCS: 36415; 93005; 80053; 82150; 83605; 83690; 84484; 85025; 81001; 74018; 99284; 96374; 96361; 96372; J0500

== ENCOUNTER 2023-08-11 07:03 | Emergency (ER) | payer OTHER ==
[2023-08-11 07:29] VITALS: TEMP 98.7
[2023-08-11] MEDS ORDERED: SODIUM CHLORIDE 0.9% 1,000 ML IV STA (08:03)
[2023-08-11] MEDS ORDERED: PANTOPRAZOLE 40 MG/10 ML VIAL IVP STA (08:03)
[2023-08-11] MEDS ORDERED: ONDANSETRON 4 MG/2 ML VIAL IVP STA (08:03)
--- NOTE | 2023-08-11 08:16 | ED ---
General Adult HPI - General Chief complaint: Abdominal Pain Stated complaint: Abd pain Time Seen by Provider: 08/11/23 07:58 Source: patient Mode of arrival: ambulatory Limitations: no limitations - History of Present Illness Initial comments: Patient is a 43-year-old female who presents emergency Department complaining of epigastric abdominal pain. This is chronic over the last year. States she has a history of acid reflux. States she had some chest palpitations discomfort last week. States her symptoms, although chronic have worsened over the last 3 days. She has a history of cholecystectomy, appendectomy. Has had nausea and vomiting with 2 episodes of nonbilious emesis as well as multiple episodes of nonbloody diarrhea. Denies any known sick contacts. Denies any other abdominal pain. Denies any fevers, chills, cough, sore throat. No other acute complaints at this time. Presents for further evaluation at this time. - Related Data Home Medications Medication Instructions Recorded Confirmed Omeprazole 20 mg PO BID 08/28/20 08/28/20 Previous Rx's Medication Instructions Recorded Ibuprofen [Motrin] 600 mg PO Q6HR PRN #40 day 08/28/20 Dicyclomine [Bentyl] 20 mg PO QID #20 tablet 08/30/22 Famotidine [Pepcid] 20 mg PO DAILY 14 Days #14 tablet 08/11/23 Allergies Allergy/AdvReac Type Severity Reaction Status Date / Time ketorolac Allergy Rash/Hives Verified 08/11/23 07:18 Penicillins Allergy Rash/Hives Verified 08/11/23 07:18 Review of Systems ROS Statement: Those systems with pertinent positive or pertinent negative responses have been documented in the HPI. Review of Systems: CONST: Denies fever EYES: Denies blurry vision ENT: Denies nasal congestion C/V: Denies Chest pain RESP: Denies shortness of breath GI: Endorses abdominal pain : Denies dysuria SKIN: Denies rash. MSK: Denies joint pain. NEURO: Denies headache ROS Other: All systems not noted in ROS Statement are negative. Past Medical History Past Medical History: GERD/Reflux History of Any Multi-Drug Resistant Organisms: None Reported Past Surgical History: Appendectomy, Section, Cholecystectomy Past Anesthesia/Blood Transfusion Reactions: No Reported Reaction Additional Past Anesthesia/Blood Transfusion Reaction / Comment(s): CLAUSTERPHOBIA Past Psychological History: No Psychological Hx Reported Smoking Status: Never smoker Past Alcohol Use History: Occasional Past Drug Use History: None Reported - Past Family History Mother Family Medical History: Diabetes Mellitus Father Family Medical History: No Reported History General Exam - General Exam Comments Initial Comments: General: Appears in no acute distress. HEAD: Normal with no signs of head trauma. EYES: PERRLA, EOMI, conjunctiva normal, no discharge. ENT: Hearing grossly intact, normal oropharynx. RESPIRATORY: Clear breath sounds bilaterally. No wheezes, rales, or rhonchi. C/V: Regular rate and rhythm. S1 and S2 auscultated, peripheral pulses 2+ and intact throughout ABD: Abd is soft, nondistended. Mild tenderness palpation epigastric region. No guarding. No rebound tenderness. No peritoneal signs. EXT: Normal range of motion, no obvious deformity SKIN: No rashes or lesions observed on exposed skin. NEURO: Alert and oriented x 4. Cranial nerves II-XII intact. Limitations: no limitations Course Vital Signs 08/11/23 08/11/23 08/11/23 07:16 07:28 09:02 Temperature 98.7 F Pulse Rate 78 77 Respiratory 16 20 Rate Blood Pressure 127/77 115/80 O2 Sat by Pulse 99 100 Oximetry 08/11/23 10:13 Temperature Pulse Rate 62 Respiratory 18 Rate Blood Pressure 105/65 O2 Sat by Pulse 100 Oximetry Medical Decision Making - Medical Decision Making Was pt. sent in by a medical professional or institution (JUAN Morales, [employer], urgent care, hospital, or assisted...) When possible be specific @ -No Did you speak to anyone other than the patient for history (EMS, parent, family, police, friend...)? What history was obtained from this source @ -No Did you review nursing and triage notes (agree or disagree)? Why? @ -I reviewed and agree with nursing and triage notes Were old charts reviewed (outside hosp., previous admission, EMS record, old EK G, old radiological studies, urgent care reports/EKG's, assisted records)? Report findings @ -Old charts were reviewed Differential Diagnosis (chest pain, altered mental status, abdominal pain women, abdominal pain men, vaginal bleeding, weakness, fever, dyspnea, syncope, headache, dizziness, GI bleed, back pain, seizure, CVA, palpatations, mental health, musculoskeletal)? @ -Differential Abdominal Pain Women: Appendicitis, Cholecystitis, diverticulosis, ischemic bowel, pancreatitis, hepatitis, UTI, gastroenteritis, AAA, incarcerated hernia, bowel obstruction, constipation, inflammatory bowel, hepatitis, peptic ulcer disease, splenic infarction, perforated viscus, vulvitis, ovarian torsion, PID, kidney stone, placenta abruption, this is not meant to be an all-inclusive list EKG interpreted by me (3pts min.). @ -As above X-rays interpreted by me (1pt min.). @ -Chest x-ray reveals a residual granuloma in the left upper lobe of the lung. No other obvious acute finding. No evidence of free air under the diaphragm. CT interpreted by me (1pt min.). @ -None done U/S interpreted by me (1pt. min.). @ -None done What testing was considered but not performed or refused? (CT, X-rays, U/S, labs)? Why? @ -Considered CT imaging however patient has chronic abdominal pains endorses appearing to be in acute exacerbation. We will obtain labs for his pain patient was in agreement with this plan. What meds were considered but not given or refused? Why? @ -None Did you discuss the management of the patient with other professionals (professionals i.e. , PA, [employer] MEMBER, lab, RT, psych nurse, high school social studies tutor, manager flight, teacher, fisheries officer, case technician)? Give summary @ -No Was smoking cessation discussed for >3mins.? @ -No Was critical care preformed (if so, how long)? @ -No Were there social determinants of health that impacted care today? How? (Homelessness, low income, unemployed, alcoholism, drug addiction, transportation, low edu. Level, literacy, decrease access to med. care, snf, rehab)? @ -No Was there de-escalation of care discussed even if they declined (Discuss DNR or withdrawal of care, Hospice)? DNR status @ -No What co-morbidities impacted this encounter? (DM, HTN, Smoking, COPD, CAD, Cancer, CVA, ARF, Chemo, Hep., AIDS, mental health diagnosis, sleep apnea, morbid obesity)? @ -None Was patient admitted / discharged? Hospital course, mention meds given and route, prescriptions, significant lab abnormalities, going to OR and other pertinent info. @ -Based on the patient's presentation and physical exam, presents emergency Department complaining of acute on chronic abdominal pain with nausea, vomiting, diarrhea. We will obtain abdominal laboratory studies as well as screening EKG and troponin patient's request as she did have one episode of chest discomfort last week. Patient will be sent likely to with IV fluids, Zofran, Protonix. Did offer GI cocktail which was declined. Vital signs within acceptable limits. Patient in agreement with this plan. Chest x-ray unremarkable. EKG unremarkable. Laboratory studies all within acceptable limits. Undetectable troponin. Patient is not . Urinalysis is contaminated and unreliable. Viral swabs negative. I discussed the results with the patient. Likely her chronic gastritis. She is feeling improved at this time. She'll be discharged home at this time. She was in agreement this plan. I will place her on Pepcid. Recommended she obtain an EGD and see a GI specialist. I will provide the patient with a prescription for Pepcid. I instructed the patient to follow up with their PCP in the next 1-3 days. I provided contact information for follow up with GI. I explained that the patient should return to the emergency department if they experience any worsening symptoms. Strict return precautions were discussed with the patient. The patient expressed understanding of these instructions. I answered all questions that the patient had. The patient was discharged home in good condition with their prescriptions and follow up information. Undiagnosed new problem with uncertain prognosis? @ -No Drug Therapy requiring intensive monitoring for toxicity (Heparin, Nitro, Insulin, Cardizem)? @ -No Were any procedures done? @ -No Diagnosis/symptom? @ -Abdominal pain of unknown etiology, suspect gastritis Acute, or Chronic, or Acute on Chronic? @ -Acute and chronic Uncomplicated (without systemic symptoms) or Complicated (systemic symptoms)? @ -Complicated Side effects of treatment? @ -none Exacerbation, Progression, or Severe Exacerbation] @ -no Poses a threat to life or bodily function? @ -no - Lab Data Result diagrams: 08/11/23 08:33 08/11/23 08:33 Lab Results 08/11/23 08/11/23 08/11/23 Range/Units 08:33 08:33 08:33 WBC 9.9 (3.8-10.6) k/uL RBC 4.75 (3.80-5.40) m/uL Hgb 11.6 (11.4-16.0) gm/dL Hct 36.9 (34.0-46.0) % MCV 77.6 L (80.0-100.0) fL MCH 24.4 L (25.0-35.0) pg MCHC 31.4 (31.0-37.0) g/dL RDW 15.2 (11.5-15.5) % Plt Count 347 (150-450) k/uL MPV 8.7 Neutrophils % 73 % Lymphocytes % 18 % Monocytes % 6 % Eosinophils % 2 % Basophils % 0 % Neutrophils # 7.2 (1.3-7.7) k/uL Lymphocytes # 1.8 (1.0-4.8) k/uL Monocytes # 0.6 (0-1.0) k/uL Eosinophils # 0.2 (0-0.7) k/uL Basophils # 0.0 (0-0.2) k/uL Microcytosis Slight PT 11.0 (10.0-12.5) sec INR 1.0 (<1.2) APTT 23.6 (22.0-30.0) sec Sodium (137-145) mmol/L Potassium (3.5-5.1) mmol/L Chloride (98-107) mmol/L Carbon Dioxide (22-30) mmol/L Anion Gap mmol/L BUN (7-17) mg/dL Creatinine (0.52-1.04) mg/dL Est GFR (CKD-EPI)AfAm (>60 ml/min/1.73 sqM) Est GFR (CKD-EPI)NonAf (>60 ml/min/1.73 sqM) Glucose (74-99) mg/dL Plasma Lactic Acid Rosas (0.7-2.0) mmol/L Calcium (8.4-10.2) mg/dL Total Bilirubin (0.2-1.3) mg/dL AST (14-36) U/L ALT (4-34) U/L Alkaline Phosphatase (38-126) U/L Troponin I (0.000-0.034) ng/mL Total Protein (6.3-8.2) g/dL Albumin (3.5-5.0) g/dL Amylase (30-110) U/L Lipase (23-300) U/L HCG, Qual Urine Color Yellow Urine Appearance Cloudy H (Clear) Urine pH 6.0 (5.0-8.0) Ur Specific [place] 1.029 (1.001-1.035) Urine Protein Trace H (Negative) Urine Glucose (UA) Negative (Negative) Urine Ketones Negative (Negative) Urine Blood Moderate H (Negative) Urine Nitrite Negative (Negative) Urine Bilirubin Negative (Negative) Urine Urobilinogen <2.0 (<2.0) mg/dL Ur Leukocyte Esterase Small H (Negative) Urine RBC 20 H (0-5) /hpf Urine WBC 9 H (0-5) /hpf Ur Squamous Epith Cells 40 H (0-4) /hpf Urine Mucus Moderate H (None) /hpf Urine Yeast (Budding) Rare H (None) /hpf Influenza Type A (PCR) (Not Detectd) Influenza Type B (PCR) (Not Detectd) RSV (PCR) (Not Detectd) SARS-CoV-2 (PCR) (Not Detectd) 08/11/23 08/11/23 08/11/23 Range/Units 08:33 08:33 08:33 WBC (3.8-10.6) k/uL RBC (3.80-5.40) m/uL Hgb (11.4-16.0) gm/dL Hct (34.0-46.0) % MCV (80.0-100.0) fL MCH (25.0-35.0) pg MCHC (31.0-37.0) g/dL RDW (11.5-15.5) % Plt Count (150-450) k/uL MPV Neutrophils % % Lymphocytes % % Monocytes % % Eosinophils % % Basophils % % Neutrophils # (1.3-7.7) k/uL Lymphocytes # (1.0-4.8) k/uL Monocytes # (0-1.0) k/uL Eosinophils # (0-0.7) k/uL Basophils # (0-0.2) k/uL Microcytosis PT (10.0-12.5) sec INR (<1.2) APTT (22.0-30.0) sec Sodium 139 (137-145) mmol/L Potassium 4.4 (3.5-5.1) mmol/L Chloride 107 (98-107) mmol/L Carbon Dioxide 24 (22-30) mmol/L Anion Gap 8 mmol/L BUN 21 H (7-17) mg/dL Creatinine 0.75 (0.52-1.04) mg/dL Est GFR (CKD-EPI)AfAm >90 (>60 ml/min/1.73 sqM) Est GFR (CKD-EPI)NonAf >90 (>60 ml/min/1.73 sqM) Glucose 97 (74-99) mg/dL Plasma Lactic Acid Rosas 0.9 (0.7-2.0) mmol/L Calcium 9.2 (8.4-10.2) mg/dL Total Bilirubin 0.9 (0.2-1.3) mg/dL AST 19 (14-36) U/L ALT 14 (4-34) U/L Alkaline Phosphatase 85 (38-126) U/L Troponin I <0.012 (0.000-0.034) ng/mL Total Protein 7.0 (6.3-8.2) g/dL Albumin 3.8 (3.5-5.0) g/dL Amylase 64 (30-110) U/L Lipase 72 (23-300) U/L HCG, Qual Not Detected Urine Color Urine Appearance (Clear) Urine pH (5.0-8.0) Ur Specific [place] (1.001-1.035) Urine Protein (Negative) Urine Glucose (UA) (Negative) Urine Ketones (Negative) Urine Blood (Negative) Urine Nitrite (Negative) Urine Bilirubin (Negative) Urine Urobilinogen (<2.0) mg/dL Ur Leukocyte Esterase (Negative) Urine RBC (0-5) /hpf Urine WBC (0-5) /hpf Ur Squamous Epith Cells (0-4) /hpf Urine Mucus (None) /hpf Urine Yeast (Budding) (None) /hpf Influenza Type A (PCR) (Not Detectd) Influenza Type B (PCR) (Not Detectd) RSV (PCR) (Not Detectd) SARS-CoV-2 (PCR) (Not Detectd) 08/11/23 Range/Units 08:33 WBC (3.8-10.6) k/uL RBC (3.80-5.40) m/uL Hgb (11.4-16.0) gm/dL Hct (34.0-46.0) % MCV (80.0-100.0) fL MCH (25.0-35.0) pg MCHC (31.0-37.0) g/dL RDW (11.5-15.5) % Plt Count (150-450) k/uL MPV Neutrophils % % Lymphocytes % % Monocytes % % Eosinophils % % Basophils % % Neutrophils # (1.3-7.7) k/uL Lymphocytes # (1.0-4.8) k/uL Monocytes # (0-1.0) k/uL Eosinophils # (0-0.7) k/uL Basophils # (0-0.2) k/uL Microcytosis PT (10.0-12.5) sec INR (<1.2) APTT (22.0-30.0) sec Sodium (137-145) mmol/L Potassium (3.5-5.1) mmol/L Chloride (98-107) mmol/L Carbon Dioxide (22-30) mmol/L Anion Gap mmol/L BUN (7-17) mg/dL Creatinine (0.52-1.04) mg/dL Est GFR (CKD-EPI)AfAm (>60 ml/min/1.73 sqM) Est GFR (CKD-EPI)NonAf (>60 ml/min/1.73 sqM) Glucose (74-99) mg/dL Plasma Lactic Acid Rosas (0.7-2.0) mmol/L Calcium (8.4-10.2) mg/dL Total Bilirubin (0.2-1.3) mg/dL AST (14-36) U/L ALT (4-34) U/L Alkaline Phosphatase (38-126) U/L Troponin I (0.000-0.034) ng/mL Total Protein (6.3-8.2) g/dL Albumin (3.5-5.0) g/dL Amylase (30-110) U/L Lipase (23-300) U/L HCG, Qual Urine Color Urine Appearance (Clear) Urine pH (5.0-8.0) Ur Specific [place] (1.001-1.035) Urine Protein (Negative) Urine Glucose (UA) (Negative) Urine Ketones (Negative) Urine Blood (Negative) Urine Nitrite (Negative) Urine Bilirubin (Negative) Urine Urobilinogen (<2.0) mg/dL Ur Leukocyte Esterase (Negative) Urine RBC (0-5) /hpf Urine WBC (0-5) /hpf Ur Squamous Epith Cells (0-4) /hpf Urine Mucus (None) /hpf Urine Yeast (Budding) (None) /hpf Influenza Type A (PCR) Not Detected (Not Detectd) Influenza Type B (PCR) Not Detected (Not Detectd) RSV (PCR) Not Detected (Not Detectd) SARS-CoV-2 (PCR) Not Detected (Not Detectd) - EKG Data -: EKG Interpreted by Me EKG Comments: 12-lead Electrocardiogram Interpretation Note EKG was reviewed and interpreted by myself. 12-lead ECG performed at 0819 is interpreted by me as revealing normal sinus rhythm at a rate of 69 beats per minute. Spangler is normal. TN interval is 166 ms, QRS duration is 84 ms, she to see is 405 ms.. There were no ST or T wave abnormalities to suggest myocardial ischemia or injury. R wave progression across the precordium was satisfactory. By my interpretation this EKG is non-diagnostic for acute ischemia. Disposition Clinical Impression: Abdominal pain of unknown etiology, Gastritis Disposition: HOME SELF-CARE Condition: Good Instructions (If sedation given, give patient instructions): Gastritis (ED), Abdominal Pain (ED) Prescriptions: Famotidine [Pepcid] 20 mg PO DAILY 14 Days #14 tablet Is patient prescribed a controlled substance at d/c from ED?: No Referrals: Guillermina Alvarez MD [Primary Care Provider] - 1-2 days Brenda Peterson MD [STAFF PHYSICIAN] - 1-2 days Time of Disposition: 09:51
[2023-08-11 08:49] LABS: Basophils % (A) 0 %; Eosinophils # (A) 0.2 k/uL (0-0.7); Eosinophils % (A) 2 %; HCT 36.9 % (34.0-46.0); HGB 11.6 gm/dL (11.4-16.0); Lymphocytes # (A) 1.8 k/uL (1.0-4.8); Lymphocytes % (A) 18 %; MCH 24.4 pg (25.0-35.0); MCHC 31.4 g/dL (31.0-37.0); MCV 77.6 fL (80.0-100.0); Mean Platelet Volume 8.7; Microcytosis Slight; Monocytes # (A) 0.6 k/uL (0-1.0); Monocytes % (A) 6 %; Neutrophils # (A) 7.2 k/uL (1.3-7.7); Neutrophils % (A) 73 %; Platelet Count 347 k/uL (150-450); RBC 4.75 m/uL (3.80-5.40); RDW 15.2 % (11.5-15.5); WBC 9.9 k/uL (3.8-10.6)
[2023-08-11] MEDS ORDERED: diphenhydrAMINE 50 MG/ML 1 ML VIAL IVP STA (08:53)
[2023-08-11 08:56] LABS: ALT 14 U/L (4-34); AST 19 U/L (14-36); African American GFR (CKD) >90 (>60 ml/min/1.73 sqM); Albumin 3.8 g/dL (3.5-5.0); Alkaline Phosphatase 85 U/L (38-126); Amylase 64 U/L (30-110); Anion Gap 8 mmol/L; Blood Urea Nitrogen 21 mg/dL (7-17); Calcium 9.2 mg/dL (8.4-10.2); Carbon Dioxide 24 mmol/L (22-30); Chloride 107 mmol/L (98-107); Glucose 97 mg/dL (74-99); Lipase 72 U/L (23-300); Non-African American GFR(CKD) >90 (>60 ml/min/1.73 sqM); Potassium 4.4 mmol/L (3.5-5.1); Sodium 139 mmol/L (137-145); Total Bilirubin 0.9 mg/dL (0.2-1.3)
[2023-08-11 09:16] LABS: Partial Thromboplastin Time 23.6 sec (22.0-30.0)
[2023-08-11 09:17] LABS: HCG,Qualitative Serum Not Detected
[2023-08-11 09:43] LABS: Appearance,Urine Cloudy (Clear); Bilirubin,Urine Negative (Negative); Blood,Urine Moderate (Negative); Budding Yeast,Urine Rare /hpf; Color,Urine Yellow; Glucose,Urine (UA) Negative (Negative); Ketones,Urine Negative (Negative); Leukocyte Esterase,Urine Small (Negative); Mucus,Urine Moderate /hpf; Nitrite,Urine Negative (Negative); Protein,Urine Trace (Negative); RBC,Urine 20 /hpf (0-5); Specific Gravity,Urine 1.029 (1.001-1.035); Squamous Epithelial Cell,Urine 40 /hpf (0-4); Urobilinogen,Urine <2.0 mg/dL (<2.0); WBC,Urine 9 /hpf (0-5)
--- NOTE | 2023-08-11 09:51 | XR ---
EXAMINATION TYPE: XR chest 1V portable DATE OF EXAM: 08/11/2023 Comparison: 05/07/2019 Clinical History: 43-year-old female abdominal pain. Shoot upright Findings: Bilateral size. Aorta and pulmonary vasculature within normal limits. Calcified granuloma in the left upper lobe. No consolidation or pleural effusion. Impression: Old calcified granuloma left upper lobe. No acute process seen.
[2023-08-11 10:20] VITALS: BP 105/65; PULSE 62; RESP 18
== END 2023-08-11 10:15 | disposition home or self-care (01) ==
LOC: EC 07:03
DX: K29.70 Gastritis, unspecified, without bleeding (principal); K21.9 Gastro-esophageal reflux disease without esophagitis; Z79.899 Other long term (current) drug therapy; Z88.0 Allergy status to penicillin; Z88.6 Allergy status to analgesic agent; Z20.822 Contact with and (suspected) exposure to COVID-19
CPT/HCPCS: 36415; 93005; 80053; 82150; 83605; 83690; 84484; 85025; 85610; 85730; 81001; 84703; 87636; 71045; 99284; 96374; 96375 ×2; 96361; J1200; J2405; C9113

== ENCOUNTER 2024-05-05 20:55 | Emergency (ER) | payer OTHER ==
[2024-05-05 21:08] VITALS: RESP 18; TEMP 97.7
--- NOTE | 2024-05-05 21:09 | ED ---
Abdominal Pain HPI - General Source: patient, RN notes reviewed Mode of arrival: ambulatory Limitations: no limitations <Roslyn Bach - Last Filed: 05/06/24 00:14> <Gloria Wells - Last Filed: 05/14/24 19:46> - General Chief Complaint: Abdominal Pain Stated Complaint: General weakness Time Seen by Provider: 05/05/24 21:08 - History of Present Illness Initial Comments: 44-year-old female presented to ER with a chief complaint of weakness and fatigue. Patient has a past medical history significant for Crohn's disease and recently started Humira injections on Friday. She states for months she has been feeling weak but calm down in the past couple of days. She denies any fevers or chills. She does report diarrhea which is worse than normal. No urinary complaints. (Roslyn Bach) - Related Data Home Medications Medication Instructions Recorded Confirmed Omeprazole 20 mg PO BID 08/28/20 08/28/20 Previous Rx's Medication Instructions Recorded Ibuprofen [Motrin] 600 mg PO Q6HR PRN #40 day 08/28/20 Dicyclomine [Bentyl] 20 mg PO QID #20 tablet 08/30/22 Famotidine [Pepcid] 20 mg PO DAILY 14 Days #14 tablet 08/11/23 Allergies Allergy/AdvReac Type Severity Reaction Status Date / Time ketorolac Allergy Rash/Hives Verified 05/05/24 21:08 Penicillins Allergy Rash/Hives Verified 05/05/24 21:08 Review of Systems ROS Other: All systems not noted in ROS Statement are negative. <Roslyn Bach - Last Filed: 05/06/24 00:14> ROS Other: All systems not noted in ROS Statement are negative. <Gloria Wells - Last Filed: 05/14/24 19:46> ROS Statement: Those systems with pertinent positive or pertinent negative responses have been documented in the HPI. Past Medical History Past Medical History: GERD/Reflux Additional Past Medical History / Comment(s): chrons History of Any Multi-Drug Resistant Organisms: None Reported Past Surgical History: Appendectomy, Section, Cholecystectomy Past Anesthesia/Blood Transfusion Reactions: No Reported Reaction Additional Past Anesthesia/Blood Transfusion Reaction / Comment(s): CLAUSTERPHOBIA Past Psychological History: No Psychological Hx Reported Smoking Status: Never smoker Past Alcohol Use History: Occasional Past Drug Use History: None Reported - Past Family History Mother Family Medical History: Diabetes Mellitus Father Family Medical History: No Reported History <Roslyn Bach - Last Filed: 05/06/24 00:14> General Exam Limitations: no limitations General appearance: alert, in no apparent distress Respiratory exam: Present: normal lung sounds bilaterally. Absent: respiratory distress, wheezes, rales, rhonchi, stridor Cardiovascular Exam: Present: regular rate, normal rhythm, normal heart sounds. Absent: systolic murmur, diastolic murmur, rubs, gallop, clicks GI/Abdominal exam: Present: soft, tenderness (lower quadrants), normal bowel sounds Extremities exam: Present: normal inspection, full ROM, normal capillary refill. Absent: tenderness, pedal edema, joint swelling, calf tenderness Neurological exam: Present: alert, oriented X3, CN II-XII intact Skin exam: Present: warm, dry, intact, normal color. Absent: rash <Roslyn Bach - Last Filed: 05/06/24 00:14> - General Exam Comments Initial Comments: Visual Physical Exam Vital signs reviewed General: Well-appearing, nontoxic, no acute distress. Head: Normocephalic, atraumatic Eyes: PERRLA, EOMI ENT: Airway patent Chest: Nonlabored breathing Skin: No visual rash, normal skin tone Neuro: Alert and oriented 3 Musculoskeletal: No gross abnormalities (Roslyn Bach) Course Vital Signs 05/05/24 05/06/24 21:04 01:40 Temperature 97.7 F Pulse Rate 87 90 Respiratory 18 18 Rate Blood Pressure 121/77 124/78 O2 Sat by Pulse 98 100 Oximetry Medical Decision Making - Lab Data Result diagrams: 05/05/24 21:29 05/05/24 21:29 <Roslyn Bach - Last Filed: 05/06/24 00:14> - Lab Data Result diagrams: 05/05/24 21:29 05/05/24 21:29 <Gloria Wells - Last Filed: 05/14/24 19:46> - Medical Decision Making I performed the quick note portion of this chart. Electronically signed by Roslyn Bach PA-C Was pt. sent in by a medical professional or institution (JUAN Morales, SUBWAY TRAIN OPERATOR, urgent c are, hospital, or fdc...) When possible be specific @ -No Did you speak to anyone other than the patient for history (EMS, parent, family, police, friend...)? What history was obtained from this source @ -No Did you review nursing and triage notes (agree or disagree)? Why? @ -I reviewed and agree with nursing and triage notes Were old charts reviewed (outside hosp., previous admission, EMS record, old EKG, old radiological studies, urgent care reports/EKG's, fdc records)? Report findings @ -No old charts were reviewed Differential Diagnosis (chest pain, altered mental status, abdominal pain women, abdominal pain men, vaginal bleeding, weakness, fever, dyspnea, syncope, headache, dizziness, GI bleed, back pain, seizure, CVA, palpatations, mental health, musculoskeletal)? @Differential Abdominal Pain Women:Appendicitis, Cholecystitis, diverticulosis, ischemic bowel, pancreatitis, hepatitis, UTI, gastroenteritis, AAA, incarcerated hernia, bowel obstruction, constipation, inflammatory bowel, hepatitis, peptic ulcer disease, splenic infarction, perforated viscus, vulvitis, ovarian torsion, PID, kidney stone, placenta abruption, this is not meant to be an all-inclusive list EKG interpreted by me (3pts min.). @ -None done X-rays interpreted by me (1pt min.). @ -None done CT interpreted by me (1pt min.). @ -Pending U/S interpreted by me (1pt. min.). @ -None done What testing was considered but not performed or refused? (CT, X-rays, U/S, labs)? Why? @ -None What meds were considered but not given or refused? Why? @ -None Did you discuss the management of the patient with other professionals (professionals i.e. , PA, SUBWAY TRAIN OPERATOR, lab, RT, psych nurse, social work specialist, rodent exterminator, teacher, associate loan officer, showcase maker)? Give summary @ -No Was smoking cessation discussed for >3mins.? @ -No Was critical care preformed (if so, how long)? @ -No Were there social determinants of health that impacted care today? How? (Homelessness, low income, unemployed, alcoholism, drug addiction, transportation, low edu. Level, literacy, decrease access to med. care, retirement, rehab)? @ -No Was there de-escalation of care discussed even if they declined (Discuss DNR or withdrawal of care, Hospice)? DNR status @ -No What co-morbidities impacted this encounter? (DM, HTN, Smoking, COPD, CAD, Cancer, CVA, ARF, Chemo, Hep., AIDS, mental health diagnosis, sleep apnea, morb id obesity)? @ -Crohns disease Was patient admitted / discharged? Hospital course, mention meds given and route, prescriptions, significant lab abnormalities, going to OR and other pertinent info. @ -44-year-old female presented to ER with a chief complaint of weakness and diarrhea. Patient has a past medical history of Crohn's disease. Vitals upon arrival stable. Patient in no signs of acute distress and nontoxic-appearing. There is lower abdominal tenderness to palpation with normal bowel sounds. No rebound or guarding. Laboratory studies obtained showing a leukocytosis of 11.2. Microcytic hypochromic anemia hemoglobin 10.7. CMP unremarkable. Urinalysis showed moderate blood and small leukocyte esterases. Urine is contaminated with 27 epithelial cells. Rare bacteria. Patient is denying any urinary complaints. Patient received IV fluids and Pepcid for symptom control in the ER. CT abdomen pelvis obtained and pending at signout. Patient signed out to Dr. Wells pending CT results and disposition. (Roslyn Bach) Patient signed out to myself pending CT abdomen pelvis. Briefly she is a 44 old female presenting to the ER with chief complaint of generalized weakness and diarrhea worse than normal. Known history Crohn's disease. CT abdomen pelvis significant for knox colic wall thickening concerning for inflammatory versus infectious colitis. No free air, significant free fluid or fluid collection. Patient has known history of Crohn's disease. On my assessment patient is resting comfortably. I updated her to these findings and discussed supportive care and following up with her sack keeper. Patient is comfortable and agreeable with this plan. In my medical judgment there is currently no evidence of an immediate life- threatening or surgical condition. Discharge is therefore indicated at this time. Discharge treatment instructions, follow up instructions, and appropriate emergency department return precautions were discussed with the patient and/or medical decision maker. Patient and/or medical decision maker expressed understanding of and agreed with the treatment plan, follow up instructions, and emergency department return precaution. All patient's and/or medical decision maker's questions were answered. (Gloria Wells) - Lab Data Lab Results 05/05/24 05/05/24 05/05/24 Range/Units 21:21 21:29 21:29 WBC 11.2 H (3.8-10.6) k/uL RBC 4.59 (3.80-5.40) m/uL Hgb 10.7 L (11.4-16.0) gm/dL Hct 34.8 (34.0-46.0) % MCV 75.8 L (80.0-100.0) fL MCH 23.3 L (25.0-35.0) pg MCHC 30.8 L (31.0-37.0) g/dL RDW 15.9 H (11.5-15.5) % Plt Count 470 H (150-450) k/uL MPV 8.5 Neutrophils % 52 % Lymphocytes % 38 % Monocytes % 5 % Eosinophils % 1 % Basophils % 0 % Neutrophils # 5.8 (1.3-7.7) k/uL Lymphocytes # 4.3 (1.0-4.8) k/uL Monocytes # 0.6 (0-1.0) k/uL Eosinophils # 0.2 (0-0.7) k/uL Basophils # 0.1 (0-0.2) k/uL Hypochromasia Marked Microcytosis Slight Sodium 139 (137-145) mmol/L Potassium 4.4 (3.5-5.1) mmol/L Chloride 107 (98-107) mmol/L Carbon Dioxide 23 (22-30) mmol/L Anion Gap 9 mmol/L BUN 20 H (7-17) mg/dL Creatinine 0.89 (0.52-1.04) mg/dL Est GFR (CKD-EPI)AfAm >90 (>60 ml/min/1.73 sqM) Est GFR (CKD-EPI)NonAf 78 (>60 ml/min/1.73 sqM) Glucose 87 (74-99) mg/dL Plasma Lactic Acid Rosas (0.7-2.0) mmol/L Calcium 8.8 (8.4-10.2) mg/dL Total Bilirubin 0.4 (0.2-1.3) mg/dL AST 18 (14-36) U/L ALT 10 (4-34) U/L Alkaline Phosphatase 78 (38-126) U/L Total Protein 6.7 (6.3-8.2) g/dL Albumin 3.7 (3.5-5.0) g/dL Amylase 82 (30-110) U/L Lipase 156 (23-300) U/L Urine Color Yellow Urine Appearance Cloudy H (Clear) Urine pH 6.0 (5.0-8.0) Ur Specific [place] 1.030 (1.001-1.035) Urine Protein Trace H (Negative) Urine Glucose (UA) Negative (Negative) Urine Ketones Negative (Negative) Urine Blood Moderate H (Negative) Urine Nitrite Negative (Negative) Urine Bilirubin Negative (Negative) Urine Urobilinogen <2.0 (<2.0) mg/dL Ur Leukocyte Esterase Small H (Negative) Urine RBC 11 H (0-5) /hpf Urine WBC 11 H (0-5) /hpf Ur Squamous Epith Cells 27 H (0-4) /hpf Urine Bacteria Rare H (None) /hpf Urine Mucus Rare H (None) /hpf 05/05/24 Range/Units 21:29 WBC (3.8-10.6) k/uL RBC (3.80-5.40) m/uL Hgb (11.4-16.0) gm/dL Hct (34.0-46.0) % MCV (80.0-100.0) fL MCH (25.0-35.0) pg MCHC (31.0-37.0) g/dL RDW (11.5-15.5) % Plt Count (150-450) k/uL MPV Neutrophils % % Lymphocytes % % Monocytes % % Eosinophils % % Basophils % % Neutrophils # (1.3-7.7) k/uL Lymphocytes # (1.0-4.8) k/uL Monocytes # (0-1.0) k/uL Eosinophils # (0-0.7) k/uL Basophils # (0-0.2) k/uL Hypochromasia Microcytosis Sodium (137-145) mmol/L Potassium (3.5-5.1) mmol/L Chloride (98-107) mmol/L Carbon Dioxide (22-30) mmol/L Anion Gap mmol/L BUN (7-17) mg/dL Creatinine (0.52-1.04) mg/dL Est GFR (CKD-EPI)AfAm (>60 ml/min/1.73 sqM) Est GFR (CKD-EPI)NonAf (>60 ml/min/1.73 sqM) Glucose (74-99) mg/dL Plasma Lactic Acid Rosas 1.2 (0.7-2.0) mmol/L Calcium (8.4-10.2) mg/dL Total Bilirubin (0.2-1.3) mg/dL AST (14-36) U/L ALT (4-34) U/L Alkaline Phosphatase (38-126) U/L Total Protein (6.3-8.2) g/dL Albumin (3.5-5.0) g/dL Amylase (30-110) U/L Lipase (23-300) U/L Urine Color Urine Appearance (Clear) Urine pH (5.0-8.0) Ur Specific [place] (1.001-1.035) Urine Protein (Negative) Urine Glucose (UA) (Negative) Urine Ketones (Negative) Urine Blood (Negative) Urine Nitrite (Negative) Urine Bilirubin (Negative) Urine Urobilinogen (<2.0) mg/dL Ur Leukocyte Esterase (Negative) Urine RBC (0-5) /hpf Urine WBC (0-5) /hpf Ur Squamous Epith Cells (0-4) /hpf Urine Bacteria (None) /hpf Urine Mucus (None) /hpf Disposition <Roslyn Bach - Last Filed: 05/06/24 00:14> Is patient prescribed a controlled substance at d/c from ED?: No <Gloria Wells - Last Filed: 05/14/24 19:46> Clinical Impression: Colitis Disposition: HOME SELF-CARE Condition: Good Additional Instructions: Every disease is a spectrum and a small chance still exists that a serious condition could develop, for this reason, please monitor yourself closely for new, changing or worsening symptoms, symptoms that persist beyond an additional 72 hours, no bowel movement for greater than 24 hours, bloody stools, fevers, increased or uncontrollable pain, inability to tolerate/keep down fluids or your medications, inability to follow up with outpatient providers as instructed and should you experience these symptoms or should you have any further concerns for your wellbeing please return to the ED or call 911 immediately. Please follow-up with your sack keeper within the next 24 to 48 hours regarding findings of colitis on CT PLEASE call your primary care physician as soon as possible to arrange / discuss plan for followup appointment. Appointment in the next 1-3 days is strongly encouraged if possible. PLEASE let us know here before you leave if there is anything further we can do to be of any assistance. Take care and feel Better! Referrals: None,Stated [Primary Care Provider] - 1-2 days
[2024-05-05 21:43] LABS: Basophils # (A) 0.1 k/uL (0-0.2); Basophils % (A) 0 %; Eosinophils # (A) 0.2 k/uL (0-0.7); Eosinophils % (A) 1 %; HCT 34.8 % (34.0-46.0); HGB 10.7 gm/dL (11.4-16.0); Hypochromasia Marked; Lymphocytes # (A) 4.3 k/uL (1.0-4.8); Lymphocytes % (A) 38 %; MCH 23.3 pg (25.0-35.0); MCHC 30.8 g/dL (31.0-37.0); MCV 75.8 fL (80.0-100.0); Mean Platelet Volume 8.5; Microcytosis Slight; Monocytes # (A) 0.6 k/uL (0-1.0); Monocytes % (A) 5 %; Neutrophils # (A) 5.8 k/uL (1.3-7.7); Neutrophils % (A) 52 %; Platelet Count 470 k/uL (150-450); RBC 4.59 m/uL (3.80-5.40); RDW 15.9 % (11.5-15.5); WBC 11.2 k/uL (3.8-10.6)
[2024-05-05 21:58] LABS: ALT 10 U/L (4-34); AST 18 U/L (14-36); African American GFR (CKD) >90 (>60 ml/min/1.73 sqM); Albumin 3.7 g/dL (3.5-5.0); Alkaline Phosphatase 78 U/L (38-126); Amylase 82 U/L (30-110); Anion Gap 9 mmol/L; Blood Urea Nitrogen 20 mg/dL (7-17); Calcium 8.8 mg/dL (8.4-10.2); Carbon Dioxide 23 mmol/L (22-30); Chloride 107 mmol/L (98-107); Glucose 87 mg/dL (74-99); Lipase 156 U/L (23-300); Non-African American GFR(CKD) 78 (>60 ml/min/1.73 sqM); Potassium 4.4 mmol/L (3.5-5.1); Sodium 139 mmol/L (137-145); Total Bilirubin 0.4 mg/dL (0.2-1.3); Total Protein 6.7 g/dL (6.3-8.2)
[2024-05-05 22:50] LABS: Appearance,Urine Cloudy (Clear); Bacteria,Urine Rare /hpf; Bilirubin,Urine Negative (Negative); Blood,Urine Moderate (Negative); Color,Urine Yellow; Glucose,Urine (UA) Negative (Negative); Ketones,Urine Negative (Negative); Leukocyte Esterase,Urine Small (Negative); Mucus,Urine Rare /hpf; Nitrite,Urine Negative (Negative); Protein,Urine Trace (Negative); RBC,Urine 11 /hpf (0-5); Squamous Epithelial Cell,Urine 27 /hpf (0-4); Urobilinogen,Urine <2.0 mg/dL (<2.0); WBC,Urine 11 /hpf (0-5)
[2024-05-05] MEDS: FAMOTIDINE 20 MG/2 ML VIAL IV STA (23:17)
[2024-05-05] MEDS: SODIUM CHLORIDE 0.9% 1,000 ML IV STA (23:18)
--- NOTE | 2024-05-06 00:27 | CT ---
EXAM: CT Abdomen and Pelvis With Intravenous Contrast CLINICAL HISTORY: ITS.REASON CT Reason: lower abd pain and diarrhea hx crohns TECHNIQUE: Axial computed tomography images of the abdomen and pelvis with intravenous contrast. CTDI is 26.8 mGy and DLP is 1310.9 mGy-cm. This CT exam was performed using one or more of the following dose reduction techniques: automated exposure control, adjustment of the mA and/or kV according to patient size, and/or use of iterative reconstruction technique. Delayed imaging was performed. COMPARISON: 04/03/19 FINDINGS: Lung bases: Unremarkable. ABDOMEN: Liver: Stable nonspecific cluster of calcification in the right hepatic lobe, possibly on the basis of chronic granulomatous disease. Gallbladder and bile ducts: Cholecystectomy. No CBD dilatation. Mild intrahepatic bile duct dilatation in the left hepatic lobe, increased from prior, possibly on the basis of reservoir effect. Pancreas: Unremarkable. No mass. No ductal dilation. Spleen: Unremarkable. No splenomegaly. Adrenals: Unremarkable. No mass. Kidneys and ureters: Unremarkable. No solid mass. No hydronephrosis. Stomach and bowel: Pancolonic wall thickening. No obstruction. PELVIS: Appendix: Appendix not identified. Bladder: Unremarkable. No mass. Reproductive: Tubal ligation clips in the uterus. The left tubal ligation clip has migrated inferiorly. ABDOMEN and PELVIS: Intraperitoneal space: Unremarkable. No free air, significant free fluid, or fluid collection. Bones/joints: No acute fracture. No dislocation. Soft tissues: Unremarkable. Vasculature: Unremarkable. No abdominal aortic aneurysm. Lymph nodes: Unremarkable. No enlarged lymph nodes. IMPRESSION: Pancolonic wall thickening. Appearance is concerning for inflammatory or infectious colitis.
[2024-05-06 01:41] VITALS: BP 124/78; PULSE 90
== END 2024-05-06 02:02 | disposition home or self-care (01) ==
LOC: EC 20:55
CPT/HCPCS: 36415; 74177; 80053; 81001; 82150; 83605; 83690; 85025; 96361; 96374; 99284

== ENCOUNTER → 2024-05-12 | Outpatient (CLI) | payer OTHER | END | disposition home or self-care (01) | LOC: LABWHC1 09:26 | DX: K52.9 Noninfective gastroenteritis and colitis, unspecified (principal) | CPT/HCPCS: 36415 ==

== ENCOUNTER → 2024-06-08 | Outpatient (CLI) | payer OTHER ==
--- NOTE | 2024-06-08 11:39 | CT ---
EXAMINATION TYPE: CT soft tissue neck w con CT DLP: 394.8 mGycm, Automated exposure control for dose reduction was used. DATE OF EXAM: 06/08/2024 11:31 AM COMPARISON: CT chest 08/16/2020, 05/04/2019. CLINICAL INDICATION:Female, 44 years old with history of J35.1 LINGULAR TONSILLAR HYPERTROPHY; PHH, d ifficulty swallowing TECHNIQUE: Standard enhanced CT of the neck following intravenous administration of 100 cc of Isovue 300. Axial sections with coronal and sagittal reformats were obtained. FINDINGS: Brain: Visualized portions are grossly unremarkable. Orbits: Unremarkable Sinuses: Grossly unremarkable. Suprahyoid Neck: The oropharynx, oral cavity, parapharyngeal and retropharyngeal spaces are clear and symmetric. The nasopharynx is unremarkable. Mild lingual hypertrophy. Infrahyoid Neck: The larynx, hypopharynx, and supraglottic area are clear and symmetric. Parotid Glands: Unremarkable. Submandibular Glands: Unremarkable. Musculoskeletal: No acute osseous pathology. Lymph nodes: Few nonenlarged lymph nodes are seen along both anterior chains of the neck. Vascular structures: Visualized major arteries are patent without evidence of aneurysm. Thoracic Inlet/airway: Airway is patent. Stable partially calcified nodule within the left upper lobe measuring up to 1.2 cm and considered benign. Soft tissues/Thyroid: Thyroid is unremarkable. Bilateral nasal piercings. Remainder of the soft tissu es are unremarkable. Other: none. IMPRESSION 1. No CT evidence for significant abnormality. 2. Mild lingual tonsillar hypertrophy. [facility], , 06/08/2024 11:36 AM
== END | disposition home or self-care (01) ==
LOC: RADCTMAIN 11:09
PROVIDERS: ATTEND Otolaryngology
DX: J35.1 Hypertrophy of tonsils (principal)
CPT/HCPCS: 70491; Q9967

== ENCOUNTER → 2024-11-29 | Outpatient (CLI) | payer OTHER ==
[2024-11-29 15:43] LABS: Basophils # (A) 0.05 X 10*3/uL (0.00-0.10); Basophils % (A) 0.6 %; Eosinophils # (A) 0.08 X 10*3/uL (0.04-0.35); HCT 40.8 % (37.2-46.3); HGB 12.3 g/dL (12.0-15.0); Lymphocytes # (A) 1.94 X 10*3/uL (0.90-5.00); Lymphocytes % (A) 23.1 %; MCH 25.4 pg (27.0-32.0); MCHC 30.1 g/dL (32.0-37.0); MCV 84.1 FL (80.0-97.0); Mean Platelet Volume 11.6 FL (9.5-12.2); Monocytes # (A) 0.71 X 10*3/uL (0.20-1.00); Monocytes % (A) 8.4 %; NRBC Per 100 WBC 0 X 10*3/uL (0.00-0.01); Neutrophils % (A) 66.5 %; Platelet Count 335 X 10*3/uL (140-440); RBC 4.85 X 10*6/uL (4.10-5.20); RDW 18.7 % (11.5-14.5); WBC 8.41 X 10*3/uL (4.50-10.00)
[2024-11-29 15:54] LABS: ALT 16 U/L (8-44); AST 20 U/L (13-35); Albumin 3.8 g/dL (3.8-4.9); Albumin/Globulin Ratio 1.41 Ratio (1.60-3.17); Alkaline Phosphatase 91 U/L (41-126); BUN/Creat Ratio 20.22 Ratio (12.00-20.00); Blood Urea Nitrogen 18.2 mg/dL (9.0-27.0); C Reactive Protein <0.30 mg/dL (0.00-0.80); Calcium 8.9 mg/dL (8.7-10.3); Carbon Dioxide 22.2 mmol/L (21.6-31.8); Chloride 106 mmol/L (96-109); Globulin 2.7 g/dL (1.6-3.3); Glucose 82 mg/dL (70-110); Potassium 4.6 mmol/L (3.5-5.5); Sodium 139 mmol/L (135-145); Total Bilirubin 0.3 mg/dL (0.3-1.2); Total Protein 6.5 g/dL (6.2-8.2)
[2024-11-29 16:43] LABS: Erythrocyte Sedimentation Rate 11 mm/Hr (0-20)
== END | disposition home or self-care (01) ==
LOC: LABWHC1 10:01
PROVIDERS: ATTEND Nurse Practitioner Family
DX: K52.9 Noninfective gastroenteritis and colitis, unspecified (principal)
CPT/HCPCS: 36415; 80053; 85025; 85652; 86140

== ENCOUNTER → 2024-12-21 | Outpatient (CLI) | payer OTHER ==
[2024-12-21 18:30] LABS: Hepatitis C IgG Antibody Nonreactive (Nonreactive)
[2024-12-21 18:31] LABS: Hepatitis B Surface Antigen Nonreactive (Nonreactive)
== END | disposition home or self-care (01) ==
LOC: LABWHC1 13:16
PROVIDERS: ATTEND Internal Medicine Gastroenterology
DX: K52.9 Noninfective gastroenteritis and colitis, unspecified (principal)
CPT/HCPCS: 36415; 86480; 86704; 86803; 87340